=== PATIENT | female | born 1950 | race Caucasian/White ===

== ENCOUNTER 2017-11-05 13:52 | Outpatient (REF) | payer MEDICARE, OTHER, SELFPAY ==
[2017-11-05 18:35] LABS: Bilirubin Negative (Negative); Blood Trace-intact (Negative); Clarity Sl Cloudy; Glucose Negative (Negative); Ketones Negative (Negative); Leukocyte Esterase Moderate (Negative); Nitrite Negative (Negative); Urobilinogen 0.2 EU/dL (Up TO 0.2); pH 5.5 (5-8)
[2017-11-05 18:43] LABS: Epithelial Cells Many HPF (Negative); Other Cells Moderate Renal (Negative)
[2017-11-05 18:44] LABS: Bacteria Moderate HPF (Negative); C & S Indicated? C&S Done As Ordered; Casts Negative LPF (Negative); Crystals Negative HPF (Negative); Mucus Negative (Negative)
== END 2017-11-05 13:53 ==
LOC: NCHCN 13:52
PROVIDERS: PCP Nurse Practitioner Family; Visit Provider Nurse Practitioner Family
DX: R10.2 Pelvic and perineal pain (principal); N39.0 Urinary tract infection, site not specified
CPT/HCPCS: 87077; 81003; 81015; 87086; 87186; 87480; 87510; 87660

== ENCOUNTER 2018-04-19 11:19 | Outpatient (REF) | payer MEDICARE, OTHER, SELFPAY ==
[2018-04-19 13:39] LABS: Bilirubin Negative (Negative); Blood Trace-intact (Negative); Clarity Clear; Glucose Negative (Negative); Ketones Trace mg/dL (Negative); Leukocyte Esterase Small (Negative); Nitrite Negative (Negative); Specific Gravity 1.025 (1.005-1.025); Urobilinogen 0.2 EU/dL (Up TO 0.2)
[2018-04-19 14:26] LABS: Bacteria Few HPF (Negative); C & S Indicated? No/Sq. Contamination; Casts Negative LPF (Negative); Crystals Negative HPF (Negative); Epithelial Cells Many HPF (Negative); Mucus Trace (Negative)
== END 2018-04-19 11:39 ==
LOC: NCHCN 11:19
PROVIDERS: PCP Nurse Practitioner Family; Visit Provider Nurse Practitioner Family
DX: R31.9 Hematuria, unspecified (principal)
CPT/HCPCS: 81003; 81015

== ENCOUNTER 2018-04-22 14:22 | Outpatient (REF) | payer MEDICARE, OTHER, SELFPAY ==
[2018-04-22 19:25] LABS: Bilirubin Negative (Negative); Blood Negative (Negative); Clarity Clear; Glucose Negative (Negative); Ketones Trace mg/dL (Negative); Leukocyte Esterase Trace (Negative); Nitrite Negative (Negative); Urobilinogen 0.2 EU/dL (Up TO 0.2)
[2018-04-22 20:11] LABS: Epithelial Cells Many HPF (Negative); RBC 0-2 (0-2)
[2018-04-22 20:12] LABS: Bacteria Rare HPF (Negative); C & S Indicated? No/Sq. Contamination; Casts Negative LPF (Negative); Crystals Negative HPF (Negative); Mucus Negative (Negative); Other Cells Rare Transitional (Negative)
== END 2018-04-22 14:42 ==
LOC: NCHCN 14:22
PROVIDERS: PCP Nurse Practitioner Family; Visit Provider Nurse Practitioner Family
DX: R31.9 Hematuria, unspecified (principal)
CPT/HCPCS: 81003; 81015

== ENCOUNTER 2018-09-11 12:26 | Emergency (ER) | payer MEDICARE, OTHER, SELFPAY ==
[2018-09-11 12:37] VITALS: BP 168/100; PULSE 97; RESP 16; TEMP 36.5; O2SAT 99
--- NOTE | 2018-09-11 14:10 | W.ED.GENAD ---
Discharge Plan Disposition Patient Disposition: HOME Condition: Good Discharge Details Chief Complaint: RashLesion Clinical Impression: Insect bite Primary Care Provider: Niurka Camacho ED Provider: Eleazar Andrade Home Meds and New Rx's Prescriptions: Continued metformin [Glucophage] 500 MG tablet 500 mg PO BID RF: 0 hydrochlorothiazide 50 MG tablet 50 mg PO DAILY RF: 0 omeprazole [Prilosec] 40 MG capsule,delayed release(DR/EC) 40 mg PO DAILY RF: 0 simvastatin 40 MG tablet 40 mg PO DAILY RF: 0 levothyroxine [Synthroid] 100 MCG tablet 100 mcg PO DAILY RF: 0 losartan [Cozaar] 25 MG tablet 50 mg PO DAILY RF: 0 CALCIUM 1 tab PO BID RF: 0 COMBIVENT INHALER 1 - 2 puff Inhalation DAILY PRN PRNRF: 0 MULTIVITAMIN 1 tab PO QAM RF: 0 vitamin E mixed 400 UNIT capsule 400 unit PO DAILY RF: 0 clobetasol 60 GM ointment 60 gm Topical DAILY Qty: 1 RF: 3 Refresh Celluvisc 1 EACH dropperette,gel 1 drp OU PRN PRNRF: 0 Asmanex Twisthaler 220 mcg (120 doses) Aerosol Powdr Breath Activated 1 inh INHALATION BID RF: 0 Discharge Instructions Instructions: Insect Bite or Sting (ED) Additional Instructions: Please use [id number] antihistamine such as Benadryl, Claritin, or Zyrtec. Take as directed on packaging. Be mindful that Benadryl may cause some drowsiness or sedation. If you are not improving in the next 24 hours you may begin the antibiotic and follow-up with your primary care provider as needed for reassessment. For any new or significant worsening of symptoms feel free to return to the emergency department Referrals: Niurka Camacho [Primary Care Provider] - Discharge Data Discharge Date/Time-TO BE ENTERED AT DEPARTURE: 09/11/18 14:28 Medical Decision Making Patient presenting the emergency department for chief complaint of bug bite. Patient has insect bite to left neck with central area of bleeding consistent with insect bite. There is small amount of erythema surrounding this area and warmth. Patient states that this occurred immediately after the bug bite. I am more suspicious of this being a histamine reaction compared to infected bug bite given clinical history. But due to patient's concern she was told to use antihistamine medication for the next 24 hours but was given a prescription for Keflex to start in 24 hours if not improving. Patient does have penicillin allergy but states that she has used amoxicillin in the past with no other issues so I do feel that Keflex is safe to give but allergic reaction risk was discussed with patient and she was also okay receiving this medication. Return precautions discussed. HPI General Mode of arrival: ambulatory. Date/Time Provider Initiated Documentation: 09/11/18 12:59. Limitations to Documentation: no limitations. Information obtained by: patient and RN notes reviewed. History of Present Illness 68 year old F presents to the emergency department with the chief complaint of insect bite, with intensity rated at 2. Quality is described as other (itching), and is localized to the neck and left. Patient started experiencing this day(s) (1) and it has been constant. Patient notes no other symptoms.. Patient did receive the following treatments prior to arrival, none Related Data Home Medications Medication Instructions Recorded Confirmed Calcium 1 tab PO BID 06/06/12 09/11/18 Combivent Inhaler 1 - 2 puff INHALATION DAILY PRN PRN 06/06/12 09/11/18 Multivitamin 1 tab PO QAM 06/06/12 09/11/18 hydrochlorothiazide 50 mg PO DAILY tab-cap 06/06/12 09/11/18 levothyroxine [Synthroid] 100 mcg PO DAILY tab-cap 06/06/12 09/11/18 losartan [Cozaar] 50 mg PO DAILY tab-cap 06/06/12 09/11/18 metformin [Glucophage] 500 mg PO BID tab-cap 06/06/12 09/11/18 omeprazole [Prilosec] 40 mg PO DAILY tab-cap 06/06/12 09/11/18 simvastatin 40 mg PO DAILY tab-cap 06/06/12 09/11/18 vitamin E mixed 400 unit PO DAILY 11/09/13 09/11/18 clobetasol 60 gm TOPICAL DAILY #1 tube 02/26/14 09/11/18 Refresh Celluvisc 1 drp OU PRN PRN 09/09/14 09/11/18 Asmanex Twisthaler 1 inh INHALATION BID 09/11/18 09/11/18 Allergies Allergy/AdvReac Type Severity Reaction Status Date / Time lisinopril Allergy RASH Unverified 09/11/18 12:42 Penicillins Allergy RASH Unverified 09/11/18 12:42 General Stated Complaint: RashLesion ANDREW: 5 Review of Systems Constitutional Denies body ache(s), Denies fever(s) and Denies headache(s) ENT Denies headache(s) Musculoskeletal Denies myalgias, Denies arthralgias and Denies joint swelling Integumentary/Breasts Reports as per HPI, Reports erythema and Denies rash Neurologic Denies headache(s) and Denies paresthesias PFSH Medical History Asthma Cataract Diabetes mellitus, type 2 Essential hypertension Gastroesophageal reflux disease Hyperlipidemia Incontinence Malignant neoplasm of female breast Plantar fasciitis Surgical History Breast, Lumpectomy portacath Family History Sister Personal history of malignant neoplasm Alzheimer's disease Father No problems noted. Mother Alzheimer's disease Other Cirrhosis of liver Social History Smoking/Tobacco Use Status: Never Alcohol Intake: never Drug use: Never Substance use type: does not use Do you feel safe at home: Yes Do you feel safe in your relationship?: Yes Exam Const General: cooperative, comfortable and no acute distress Orientation: alert, awake and oriented x3 Neck Neck: full ROM, no meningeal signs, trachea midline and supple Resp Effort & Inspection: normal respiratory effort and able to speak in complete sentences Skin General skin exam: erythema (1.5 cm Circular area to lateral neck), no fluctuance and no induration Rashes: no rashes Neuro General: alert, awake and oriented x3 Course Vital Signs Temperature 36.5 C 09/11/18 12:37 Pulse 97 H 09/11/18 12:37 Respiratory Rate 16 09/11/18 12:37 Blood Pressure 168/100 H 09/11/18 12:37 Pulse Oximetry 99 09/11/18 12:37 Temperature 36.5 C 09/11/18 12:37 Temperature Source Temporal Artery Scan 09/11/18 12:37 Pulse 97 H 09/11/18 12:37 Respiratory Rate 16 09/11/18 12:37 Respiratory Effort Non-Labored 09/11/18 12:37 Blood Pressure 168/100 H 09/11/18 12:37 Blood Pressure Position Sitting 09/11/18 12:37 Pulse Oximetry 99 09/11/18 12:37 Oxygen Delivery Method Room Air 09/11/18 12:37 Oxygen Flow Rate 0 09/11/18 12:37 Pain Level 3 09/11/18 12:37
--- NOTE | 2018-09-11 14:13 | ED.GENADUL_ITS ---
Discharge Plan Disposition Patient Disposition: HOME Condition: Good Discharge Details Chief Complaint: RashLesion Clinical Impression: Insect bite Primary Care Provider: Niurka Camacho ED Provider: Eleazar Andrade Home Meds and New Rx's Prescriptions: Continued metformin [Glucophage] 500 MG tablet 500 mg PO BID RF: 0 hydrochlorothiazide 50 MG tablet 50 mg PO DAILY RF: 0 omeprazole [Prilosec] 40 MG capsule,delayed release(DR/EC) 40 mg PO DAILY RF: 0 simvastatin 40 MG tablet 40 mg PO DAILY RF: 0 levothyroxine [Synthroid] 100 MCG tablet 100 mcg PO DAILY RF: 0 losartan [Cozaar] 25 MG tablet 50 mg PO DAILY RF: 0 CALCIUM 1 tab PO BID RF: 0 COMBIVENT INHALER 1 - 2 puff Inhalation DAILY PRN PRNRF: 0 MULTIVITAMIN 1 tab PO QAM RF: 0 vitamin E mixed 400 UNIT capsule 400 unit PO DAILY RF: 0 clobetasol 60 GM ointment 60 gm Topical DAILY Qty: 1 RF: 3 Refresh Celluvisc 1 EACH dropperette,gel 1 drp OU PRN PRNRF: 0 Asmanex Twisthaler 220 mcg (120 doses) Aerosol Powdr Breath Activated 1 inh INHALATION BID RF: 0 Discharge Instructions Instructions: Insect Bite or Sting (ED) Additional Instructions: Please use [id number] antihistamine such as Benadryl, Claritin, or Zyrtec. Take as directed on packaging. Be mindful that Benadryl may cause some drowsiness or sedation. If you are not improving in the next 24 hours you may begin the antibiotic and follow-up with your primary care provider as needed for reassessment. For any new or significant worsening of symptoms feel free to return to the emergency department Referrals: Niurka Camacho [Primary Care Provider] - Discharge Data Discharge Date/Time-TO BE ENTERED AT DEPARTURE: 09/11/18 14:28 Medical Decision Making Patient presenting the emergency department for chief complaint of bug bite. Patient has insect bite to left neck with central area of bleeding consistent with insect bite. There is small amount of erythema surrounding this area and warmth. Patient states that this occurred immediately after the bug bite. I am more suspicious of this being a histamine reaction compared to infected bug bite given clinical history. But due to patient's concern she was told to use antihistamine medication for the next 24 hours but was given a prescription for Keflex to start in 24 hours if not improving. Patient does have penicillin allergy but states that she has used amoxicillin in the past with no other issu es so I do feel that Keflex is safe to give but allergic reaction risk was discussed with patient and she was also okay receiving this medication. Return precautions discussed. HPI General Mode of arrival: ambulatory . Date/Time Provider Initiated Documentation: 09/11/18 12:59 . Limitations to Documentation: no limitations . Information obtained by: patient and RN notes reviewed . History of Present Illness 68 year old F presents to the emergency department with the chief complaint of insect bite, with intensity rated at 2. Quality is described as other (itching), and is localized to the neck and left. Patient started experiencing this day(s) (1) and it has been constant. Patient notes no other symptoms.. Patient did receive the following treatments prior to ar [facility], none Related Data Home Medications Medication Instructions Recorded Confirmed Calcium 1 tab PO BID 06/06/12 09/11/18 Combivent Inhaler 1 - 2 puff INHALATION DAILY PRN PRN 06/06/12 09/11/18 Multivitamin 1 tab PO QAM 06/06/12 09/11/18 hydrochlorothiazide 50 mg PO DAILY tab-cap 06/06/12 09/11/18 levothyroxine [Synthroid] 100 mcg PO DAILY tab-cap 06/06/12 09/11/18 losartan [Cozaar] 50 mg PO DAILY tab-cap 06/06/12 09/11/18 metformin [Glucophage] 500 mg PO BID tab-cap 06/06/12 09/11/18 omeprazole [Prilosec] 40 mg PO DAILY tab-cap 06/06/12 09/11/18 simvastatin 40 mg PO DAILY tab-cap 06/06/12 09/11/18 vitamin E mixed 400 unit PO DAILY 11/09/13 09/11/18 clobetasol 60 gm TOPICAL DAILY #1 tube 02/26/14 09/11/18 Refresh Celluvisc 1 drp OU PRN PRN 09/09/14 09/11/18 Asmanex Twisthaler 1 inh INHALATION BID 09/11/18 09/11/18 Allergies Allergy/AdvReac Type Severity Reaction Status Date / Time lisinopril Allergy RASH Unverified 09/11/18 12:42 Penicillins Allergy RASH Unverified 09/11/18 12:42 General Stated Complaint: RashLesion ANDREW: 5 Review of Systems Constitutional Denies body ache(s), Denies fever(s) and Denies headache(s) ENT Denies headache(s) Musculoskeletal Denies myalgias, Denies arthralgias and Denies joint swelling Integumentary/Breasts Reports as per HPI, Reports erythema and Denies rash Neurologic Denies headache(s) and Denies paresthesias PFSH Medical History Asthma Cataract Diabetes mellitus, type 2 Essential hypertension Gastroesophageal reflux disease Hyperlipidemia Incontinence Malignant neoplasm of female breast Plantar fasciitis Surgical History Breast, Lumpectomy portacath Family History Sister Personal history of malignant neoplasm Alzheimer's disease Father No problems noted. Mother Alzheimer's disease Other Cirrhosis of liver Social History Smoking/Tobacco Use Status: Never Alcohol Intake: never Drug use: Never Substance use type: does not use Do you feel safe at home: Yes Do you feel safe in your relationship?: Yes Exam Const General: cooperative, comfortable and no acute distress Orientation: alert, awake and oriented x3 Neck Neck: full ROM, no meningeal signs, trachea midline and supple Resp Effort & Inspection: normal respiratory effort and able to speak in complete sentences Skin General skin exam: erythema (1.5 cm Circular area to lateral neck), no fluctuance and no induration Rashes: no rashes Neuro General: alert, awake and oriented x3 Course Vital Signs Temperature 36.5 C 09/11/18 12:37 Pulse 97 H 09/11/18 12:37 Respiratory Rate 16 09/11/18 12:37 Blood Pressure 168/100 H 09/11/18 12:37 Pulse Oximetry 99 09/11/18 12:37 Temperature 36.5 C 09/11/18 12:37 Temperature Source Temporal Artery Scan 09/11/18 12:37 Pulse 97 H 09/11/18 12:37 Respiratory Rate 16 09/11/18 12:37 Respiratory Effort Non-Labored 09/11/18 12:37 Blood Pressure 168/100 H 09/11/18 12:37 Blood Pressure Position Sitting 09/11/18 12:37 Pulse Oximetry 99 09/11/18 12:37 Oxygen Delivery Method Room Air 09/11/18 12:37 Oxygen Flow Rate 0 09/11/18 12:37 Pain Level 3 09/11/18 12:37
== END 2018-09-11 14:28 | disposition home or self-care (01) ==
PROVIDERS: Emergency Provider Nurse Practitioner Family; PCP Nurse Practitioner Family
DX: S10.86XA Insect bite of other specified part of neck, initial encounter (principal); W57.XXXA Bitten or stung by nonvenomous insect and other nonvenomous arthropods, initial encounter
CPT/HCPCS: 99282

== ENCOUNTER 2019-01-24 18:13 | Emergency (ER) | payer MEDICARE, OTHER, SELFPAY ==
--- NOTE | 2019-01-24 18:38 | W.ED.GENAD ---
Discharge Plan Disposition Patient Disposition: HOME Condition: Improving Discharge Details Chief Complaint: Cellulitis Clinical Impression: Abscess of groin, Cellulitis Primary Care Provider: Niurka Camacho ED Provider: Kami Wagner Home Meds and New Rx's Prescriptions: New cephalexin [Keflex] 500 mg capsule 500 mg PO BID Qty: 10 RF: 0 Continued metformin [Glucophage] 500 MG tablet 500 mg PO BID RF: 0 hydrochlorothiazide 50 MG tablet 50 mg PO DAILY RF: 0 omeprazole [Prilosec] 40 MG capsule,delayed release(DR/EC) 40 mg PO DAILY RF: 0 simvastatin 40 MG tablet 40 mg PO DAILY RF: 0 levothyroxine [Synthroid] 100 MCG tablet 100 mcg PO DAILY RF: 0 losartan [Cozaar] 25 MG tablet 50 mg PO DAILY RF: 0 CALCIUM 1 tab PO BID RF: 0 COMBIVENT INHALER 1 - 2 puff Inhalation DAILY PRN PRNRF: 0 MULTIVITAMIN 1 tab PO QAM RF: 0 vitamin E mixed 400 UNIT capsule 400 unit PO DAILY RF: 0 clobetasol 60 GM ointment 60 gm Topical DAILY Qty: 1 RF: 3 Refresh Celluvisc 1 EACH dropperette,gel 1 drp OU PRN PRNRF: 0 Asmanex Twisthaler 220 mcg (120 doses) Aerosol Powdr Breath Activated 1 inh INHALATION BID RF: 0 Discharge Instructions Instructions: Cephalexin (By mouth), Cellulitis (ED), Abscess (ED) Additional Instructions: Continue with the care you have been doing, you have been doing a great job and your abscess appears to be spontaneously draining with good results. You do have surroudning infection in your skin. First dose of Keflex was given here, sent home with another for tomorrow morning. Please continue with your soaks and warm compresses, otherwise, try to keep the area dry. If you develop allergy to medication such as rash, wheezing, difficulty breathing, stop the medication and seek care. If you note the area to be increased in size, have increased pain, fevers/chills, please seek care urgently once again. Please follow up with primary care for reevaluation at the end of hte week. Medical Decision Making Patient is a 69 year old female with c/c of erythema, drainage and discomfort to the right side of her groin. States that 3 days ago it was very swollen and felt like a rock. Since then, area has been draining, noted small amount of blood. Has been applying warm compresses, doing soaks and feels much improved. States this is a problem area previously secondary to body habitus. Denies any fevers or chills. There is no longer draining. Feels systemically well. [facility] Area of swelling is consistent with a draining abscess, the area is not actively draining, no fluctuance. She has surrounding erythema. No pain with palpation. Do not feel that patient is requiring drainage at this point as it appears to have spontaneously drained. However, with the surrounding erythema, feel that abx are appropriate. Patient has allergy to penicillin, describes mild rash, believes she has had Keflex historically. Encourage hydration. Advised that she monitor her glucose closely. She will contact her primary care tomorrow to schedule appointment at the end the week for reevaluation and return precautions. All questions and concerns were addressed she is in agreement this plan. Patient was given first dose of Keflex here and sent home with a second given the time of evening. HPI General Mode of arrival: ambulatory. Date/Time Provider Initiated Documentation: 01/24/19 18:37. Limitations to Documentation: no limitations. Information obtained by: patient and RN notes reviewed. HPI Narrative: Patient is a pleasant 69-year-old female with history of asthma, diabetes, hypertension, GERD, hyperlipidemia, incontinence presenting today with chief complaint of rash to the right side of her groin. Reports is been there for the past 3 days. States it is overall improving and pain has decreased. Is currently reporting pain to 2 out of 10. Denies any fevers or chills. No known trauma to this area. Denies any change in her urinary habits, patient reports that she is incontinent at baseline. Has not had a rash like this historically but has had no recent infections to this area in the past. States that she is very cognizant of keeping this area clean and dry. Denies any vaginal discharge. States that she has some yellow-brown discharge that began yesterday. States that since that, rockhard area has dissolved. States the pain did improve after this. Denies any fevers or chills. No systemic symptoms of illness. Related Data Home Medications Medication Instructions Recorded Confirmed Calcium 1 tab PO BID 06/06/12 01/24/19 Combivent Inhaler 1 - 2 puff INHALATION DAILY PRN PRN 06/06/12 01/24/19 Multivitamin 1 tab PO QAM 06/06/12 01/24/19 hydrochlorothiazide 50 mg PO DAILY tab-cap 06/06/12 01/24/19 levothyroxine [Synthroid] 100 mcg PO DAILY tab-cap 06/06/12 01/24/19 losartan [Cozaar] 50 mg PO DAILY tab-cap 06/06/12 01/24/19 metformin [Glucophage] 500 mg PO BID tab-cap 06/06/12 01/24/19 omeprazole [Prilosec] 40 mg PO DAILY tab-cap 06/06/12 01/24/19 simvastatin 40 mg PO DAILY tab-cap 06/06/12 01/24/19 vitamin E mixed 400 unit PO DAILY 11/09/13 01/24/19 clobetasol 60 gm TOPICAL DAILY #1 tube 02/26/14 01/24/19 Refresh Celluvisc 1 drp OU PRN PRN 09/09/14 01/24/19 Asmanex Twisthaler 1 inh INHALATION BID 09/11/18 01/24/19 cephalexin [Keflex] 500 mg PO BID #10 cap 01/24/19 Previous Rx's Medication Instructions Recorded cephalexin [Keflex] 500 mg PO BID #10 cap 01/24/19 Allergies Allergy/AdvReac Type Severity Reaction Status Date / Time lisinopril Allergy RASH Unverified 01/24/19 19:26 Penicillins Allergy RASH Unverified 01/24/19 19:26 General ANDREW: 5 Review of Systems Constitutional Constitutional: Reports as per HPI, Denies chills and Denies fever(s) Gastrointestinal Gastrointestinal: Reports as per HPI Genitourinary Genitourinary: Reports as per HPI Musculoskeletal Musculoskeletal: Reports as per HPI Integumentary/Breasts Skin/Breast: Reports as per HPI Neurologic Neurologic: Reports as per HPI, Denies sensory deficit and Denies paresthesias [facility] Medical History Asthma Cataract Diabetes mellitus, type 2 Essential hypertension Gastroesophageal reflux disease Hyperlipidemia Incontinence mixed Malignant neoplasm of female breast Plantar fasciitis Surgical History Breast, Lumpectomy R breast portacath insertion and removal for chemo Social History Smoking/Tobacco Use Status: Former Tobacco Use Alcohol Intake: current Alcohol Intake frequency: holidays/special occasions only Alcohol type: beer Drug use: Never Substance use type: does not use Do you feel safe at home: Yes Do you feel safe in your relationship?: Yes Exam Const General: cooperative, healthy appearing, comfortable, no acute distress and well developed Nutritional Appearance: well nourished and overweight Orientation: alert and awake Resp Effort & Inspection: normal respiratory effort, able to speak in complete sentences and no respiratory distress Cardio Rate: regular rate Rhythm: regular rhythm Female genitals images: 1. Small area of opening. This appears to be an open area likely from an abscess is been draining. No area of fluctuance to suggest persistent fluid retention. 2. Area of erythema. No induration or fluctuance. No pain on palpation. Skin General skin exam: erythema (Please see exam) Neuro General: alert and awake Cognition: normal cognition Speech: speech normal Gait: normal gait Sensory Exam: no sensory deficits noted Psych Appearance: grossly normal and well kempt Mental Status: mental status grossly normal Speech and Movement: speech and movement normal
[2019-01-24 19:22] VITALS: BP 173/90; PULSE 95; RESP 17; TEMP 36.7; O2SAT 95
[2019-01-24] MEDS: Cephalexin 500 MG CAP PO (19:29)
[2019-01-24] MEDS: Cephalexin 500 MG CAP (19:30)
== END 2019-01-24 19:30 | disposition home or self-care (01) ==
PROVIDERS: Emergency Provider Physician Assistant; PCP Nurse Practitioner Family
DX: L02.214 Cutaneous abscess of groin (principal); L03.314 Cellulitis of groin; I10 Essential (primary) hypertension; E11.9 Type 2 diabetes mellitus without complications; Z79.84 Long term (current) use of oral hypoglycemic drugs
CPT/HCPCS: 99283

== ENCOUNTER 2019-11-10 08:30 | Outpatient (CLI) | payer MEDICARE, OTHER, SELFPAY ==
[2019-11-11 14:40] LABS: COVID-19 RT-PCR Result NEGATIVE (Negative)
== END 2019-11-10 08:50 ==
PROVIDERS: PCP Nurse Practitioner Family; Visit Provider Surgery
DX: Z11.59 Encounter for screening for other viral diseases (principal); Z01.818 Encounter for other preprocedural examination
CPT/HCPCS: U0003

== ENCOUNTER 2019-11-13 10:59 | Day surgery (SDC) | payer OTHER, SELFPAY ==
--- NOTE | 2019-11-13 06:47 | W.COLOREPORT ---
Date of service: 11/13/19 Time of Service: 12:42 Colonoscopy Report Date of procedure: 11/13/19 Pre-op diagnosis general: Hx of polyps Post-op diagnosis procedure note: other (Polyps, diverticulosis) Procedure: Incomplete Colonoscopy Surgeon: Olivia Jimenez Anesthesia proc note operative: other (General/ ASA 3/Akash Rivera CRNA) Estimated blood loss (mL): 4 Pathology: other (Rectal polyp x2, sigmoid polyp) Complications: None Disposition: same day Indications: 69-year-old female with past medical history of sleep apnea, asthma and GERD who is here today for. She does have a history of adenomatous polyps. Her last colonoscopy was in [id number] at the [place]. Colonoscopy prep and procedure were reviewed with her as well as COVID testing. Prep: Miralax/Dulcolax Procedure Start Time: 12:42 Procedure End Time: 13:17 Retraction Time: 10 minutes Findings: 3 small polyps Unable to go past the Hepatic flexure secondary to a tortuous colon and her body habitus. Patients position was changed to prone and abdominal pressure was applied but I could still not get the scope to go past the hepatic flexure. Procedure Description: After informed consent was obtained the patient was taken to the procedure room and placed in a left decubitous position. Monitors were applied and a time out was done. The patients name, date of , procedure, allergies to medications and metal in their body was reviewed. The patient was then sedated. Once sedated and comfortable a rectal exam was done. External exam was normal. Internal exam revealed a normal sphincter tone and no palpable masses. The scope was then introduced and retro-flexed. No internal hemorrhoids were identified. The scope was then advanced to the hepatic flexure with difficulty. The colon was tortuous and due to the [id number] body habitues we could not feel the scope. Abdominal pressure was applied and the patient was placed in a prone position. Even with these maneuvers the scope could not get past the Hepatic flexure. After 20 minutes of trying the scope was slowly retracted. The prep was adequate. The scope was then slowly retracted over 10 minutes back into the rectum. Polyps were removed at with cold forceps in the sigmoid colon and rectum. The scope was removed and the patient was woken up and taken back to Same day surgery in stable condition. The patient tolerated the procedure well and there were no immediate complications. Follow up: [facility] with [facility] Examination Grader
--- NOTE | 2019-11-13 06:48 | PDOC.DSDIS_ITS ---
Discharge Plan Disposition Patient Disposition: HOME Condition: Good Discharge Details Reason For Visit: Colonoscopy Attending Provider: Olivia Jimenez Primary Care Provider: Niurka Camacho Home Meds and New Rx's Prescriptions: Continued metformin [Glucophage] 500 MG tablet 500 mg PO BID RF: 0 simvastatin 40 MG tablet 40 mg PO DAILY RF: 0 levothyroxine [Synthroid] 100 MCG tablet 100 mcg PO DAILY RF: 0 losartan [Cozaar] 25 MG tablet 50 mg PO DAILY RF: 0 CALCIUM 1 tab PO BID RF: 0 COMBIVENT INHALER 1 - 2 puff Inhalation DAILY PRN PRNRF: 0 MULTIVITAMIN 1 tab PO QAM RF: 0 vitamin E mixed 400 UNIT capsule 400 unit PO DAILY RF: 0 clobetasol 60 GM ointment 60 gm Topical DAILY Qty: 1 RF: 3 omeprazole [Prilosec] 40 mg capsule,delayed release(DR/EC) 20 mg PO DAILY RF: 0 hydrochlorothiazide 50 mg tablet 25 mg PO DAILY RF: 0 omega-3 fatty acids [Fish Oil Concentrate] 1,000 mg capsule 1,000 mg PO DAILY RF: 0 acetaminophen 325 mg capsule 325 mg PO ONCE PRNRF: 0 ibuprofen 400 mg tablet 400 mg PO TID PRNRF: 0 triamcinolone acetonide 0.025 % cream 1 applic TP BID RF: 0 Refresh Celluvisc 1 EACH dropperette,gel 1 drp OU PRN PRNRF: 0 Asmanex Twisthaler 220 mcg (120 doses) Aerosol Powdr Breath Activated 1 inh INHALATION BID RF: 0 Discontinued bisacodyl [Dulcolax (bisacodyl)] 5 mg tablet,delayed release (DR/EC) 5 mg PO ONCE Qty: 4 RF: 0 polyethylene glycol 3350 17 gram powder in packet 255 g PO DAILY Qty: 15 RF: 0 Discharge Instructions Additional Instructions: Findings: 3 small polyps Follow up: I was unable to get the scope all the way to the cecum. [facility] 6 [facility] with a director of mobile marketing Please call if you develop: fevers >101.5 Nausea or Vomiting Abdominal pain that is not transient DAY SURGERY UNIT POST ENDOSCOPY INSTRUCTIONS 1. Because there will be medication in your system for the next 24 hours, you may feel a little sleepy. Your coordination will be affected. Therefore: a. Do not drive or operate dangerous equipment for 24 hours. b. Do not drink alcohol beverages for 24 hours (not even beer). c. Plan to go home and rest for the day. 2. Generally there are no restrictions on your activity after a day or so has gone by, but you may feel a bit fatigued for a few days. 3 After you arrive home you may have a light meal and return to a normal diet as you can tolerate it without feeling sick to your stomach. 4. After surgery, you may feel pain or discomfort. This should be only transient, but if it persists please contact your doctor. 5. If there are any questions regarding the findings of your procedure, please feel free to contact your doctor. 6. If you are unable to contact your doctor with a problem, contact the hospital at [phone]. 7. Continue all your regular medications unless directed otherwise. I understand the above instructions and have no questions. Signature of Patient or Responsible Adult Escort Date/Time Name of Responsible Adult Escort Signature of Nurse Date/Time Activity:: Activity as Tolerated Diet:: As Tolerated Discharge Orders Discharge Orders: Discharge Order (Routine); Ordered 11/13/19 Ordered By: Olivia Jimenez
[2019-11-13 11:15] VITALS: BP 168/90; PULSE 88; RESP 18; TEMP 36.6; O2SAT 96
[2019-11-13] MEDS: Lactated Ringers 1,000 ML 80 ML IV (12:06)
--- NOTE | 2019-11-13 12:44 | BOWEL_PTH ---
PATIENT: Eevlia Tarango LOC: [facility] U#:[id number] AGE/SX: 69/F ROOM: RE11/13/[address]: Olivia Jimenez MD : [id number] BED: DIS: 11/13/2019 SPEC #: [id number] RECD: 11/13/19 18:25 STATUS: JAMAL REQ #: [id number] MARIN: 11/13/19 12:[address]: Olivia Jimenez DEPT: Surgical Specimen RECD BY: Yulia Emery ENTERED: 11/13/19 18:26 SP TYPE: Bowel OTHR DR: Niurka Camacho Tissues: 1 - BIOPSY BOWEL 2 - BIOPSY BOWEL Procedures: GROSS AND MICRO LEVEL 4 Comments: [id number]
[2019-11-13 13:47] VITALS: BP 116/65; PULSE 78; RESP 16; TEMP 36.4; O2SAT 94
== END 2019-11-13 14:15 | disposition home or self-care (01) ==
PROVIDERS: PCP Nurse Practitioner Family; Visit Provider Surgery
PROC: 0DJD8ZZ Inspection of Lower Intestinal Tract, Via Natural or Artificial Opening Endoscopic (ICD-10-PCS; CPT 45378; principal; 2019-11-13 11:30)
DX: Z12.11 Encounter for screening for malignant neoplasm of colon (principal); Z86.010 Personal history of colon polyps; K62.1 Rectal polyp; K63.5 Polyp of colon; K57.30 Diverticulosis of large intestine without perforation or abscess without bleeding; Q43.8 Other specified congenital malformations of intestine; Z53.8 Procedure and treatment not carried out for other reasons
CPT/HCPCS: 45380; 88305; J2001

== ENCOUNTER 2020-04-20 14:00 | Emergency (ER) | payer MEDICARE, OTHER, SELFPAY ==
[2020-04-20 14:06] VITALS: BP 185/105; PULSE 117; TEMP 36.6; O2SAT 98
--- NOTE | 2020-04-20 14:27 | ED.GENADUL_ITS ---
Discharge Plan Disposition Patient Disposition: HOME Condition: Stable Discharge Details Clinical Impression: Rash of face Primary Care Provider: Niurka Camacho ED Provider: Flaca Gaona Home Meds and New Rx's Prescriptions: No Action metformin [Glucophage] 500 MG tablet 500 mg PO BID RF: 0 simvastatin 40 MG tablet 40 mg PO DAILY RF: 0 levothyroxine [Synthroid] 100 MCG tablet 100 mcg PO DAILY RF: 0 losartan [Cozaar] 25 MG tablet 50 mg PO DAILY RF: 0 CALCIUM 1 tab PO BID RF: 0 COMBIVENT INHALER 1 - 2 puff Inhalation DAILY PRN PRNRF: 0 MULTIVITAMIN 1 tab PO QAM RF: 0 vitamin E mixed 400 UNIT capsule 400 unit PO DAILY RF: 0 hydrochlorothiazide 50 mg tablet 25 mg PO DAILY RF: 0 omega-3 fatty acids [Fish Oil Concentrate] 1,000 mg capsule 1,000 mg PO DAILY RF: 0 acetaminophen 325 mg capsule 325 mg PO ONCE PRNRF: 0 ibuprofen 400 mg tablet 400 mg PO TID PRNRF: 0 triamcinolone acetonide 0.025 % cream 0.1 applic TP BID RF: 0 Refresh Celluvisc 1 EACH dropperette,gel 1 drp OU PRN PRNRF: 0 Asmanex Twisthaler 220 mcg (120 doses) Aerosol Powdr Breath Activated 1 inh INHALATION BID RF: 0 Discharge Instructions Instructions: Impetigo (ED) Additional Instructions: Using mupirocin topical ointment 3 times a day for 5 to 7 days. You should notice an improvement after 3 to 5 days. Please be seen if any spreading or worsening after 2 to 3 days of antibiotic ointment. Follow up with primary care provider in 3-5 days. Return to ED sooner if any worsening or concerns. Increase oral fluids. Referrals: Niurka Camacho [Primary Care Provider] - Medical Decision Making 70-year-old female presents to the ER with a chronic rash type lesion to the her left cheek. She was seen by dermatology 4 weeks ago when this initially presented. She has been prescribed various medications including fluconazole and triamcinolone cream which has provided little to no relief. She reports tenderness with smiling and palpation. She states that this morning she was washing it and noted mild bleeding. No fever, no other rashes noted. She does have a past medical history of stage IV breast cancer, she has had basal cell carcinoma removed to her forehead, cataracts, type 2 diabetes, hypertension, GERD, asthma. At this time we will treat as bacterial infection with some mupirocin ointment. Differential diagnosis includes but not limited to impetigo, shingles, atopic dermatitis, fungal infection, HPI General Mode of arrival: ambulatory . Date/Time Provider Initiated Documentation: 04/20/20 14:01 . Limitations to Documentation: no limitations . Information obtained by: patient . HPI Narrative: 70-year-old female presents to the ER with a chronic rash type lesion to the her left cheek. She was seen by dermatology 4 weeks ago when this initially presented. She has been prescribed various medications including fluconazole and triamcinolone cream which has provided little to no relief. She reports tenderness with smiling and palpation. She states that this morning she was washing it and noted mild bleeding. No fever, no other rashes noted. She does have a past medical history of stage IV breast cancer, she has had basal cell carcinoma removed to her forehead, cataracts, type 2 diabetes, hypertension, GERD, asthma. Related Data Home Medications Medication Instructions Recorded Confirmed Calcium 1 tab PO BID 06/06/12 04/20/20 Combivent Inhaler 1 - 2 puff INHALATION DAILY PRN PRN 06/06/12 04/20/20 Multivitamin 1 tab PO QAM 06/06/12 04/20/20 levothyroxine [Synthroid] 100 mcg PO DAILY tab-cap 06/06/12 04/20/20 losartan [Cozaar] 50 mg PO DAILY tab-cap 06/06/12 04/20/20 metformin [Glucophage] 500 mg PO BID tab-cap 06/06/12 04/20/20 simvastatin 40 mg PO DAILY tab-cap 06/06/12 04/20/20 vitamin E mixed 400 unit PO DAILY 11/09/13 04/20/20 Refresh Celluvisc 1 drp OU PRN PRN 09/09/14 04/20/20 Asmanex Twisthaler 1 inh INHALATION BID 09/11/18 04/20/20 acetaminophen 325 mg capsule 325 mg PO ONCE PRN 08/24/19 04/20/20 hydrochlorothiazide 50 mg tablet 25 mg PO DAILY tab-cap 08/24/19 04/20/20 ibuprofen 400 mg tablet 400 mg PO TID PRN 08/24/19 04/20/20 omega-3 fatty acids 1,000 mg 1,000 mg PO DAILY 08/24/19 04/20/20 capsule triamcinolone acetonide 0.025 % 0.1 applic TP BID 08/24/19 04/20/20 topical cream Allergies Allergy/AdvReac Type Severity Reaction Status Date / Time JAMARCUS Inhibitors Allergy Unknown noted on Verified 04/20/20 14:15 referral note, no reaction given sulfamethoxazole Allergy Unknown Verified 04/20/20 14:15 trimethoprim [From ] Allergy Unknown on Verified 04/20/20 14:15 referral, no reaction noted lisinopril Allergy RASH Unverified 04/20/20 14:15 Penicillins Allergy RASH Unverified 04/20/20 14:15 General Stated Complaint: RashLesion ANDREW: 5 Review of Systems All systems reviewed & are unremarkable except as noted in HPI and below Integumentary/Breasts Skin/Breast: Reports rash (Left cheek lesion) and Reports sores PFSH Medical History Adenomatous polyp (~06/2015) Asthma Cataract Diabetes mellitus, type 2 Essential hypertension Gastroesophageal reflux disease Hyperlipidemia Hypothyroidism Incontinence mixed Lichen sclerosus et atrophicus Malignant neoplasm of female breast Morbid obesity due to excess calories Obstructive sleep apnea Other asthma Personal history of malignant neoplasm of breast Plantar fasciitis Surgical History Breast, Lumpectomy R breast quadrectomy H/O colonoscopy (~10/2019) incomplete colonoscopy. repeat in 1 year or schedule barium enema. portacath insertion and removal for chemo S/P colonoscopy 2015- Tubular adenoma Family History Sister Personal history of malignant neoplasm breast CA-in-situ Alzheimer's disease Father No problems noted. Mother Alzheimer's disease Other Cirrhosis of liver Social History Smoking/Tobacco Use Status: Former Tobacco Use Smoking risk assessment performed?: Yes Alcohol Intake: current Alcohol Intake frequency: holidays/special occasions o nly Alcohol type: beer Drug use: Never Substance use type: does not use Do you feel safe at home: Yes Do you feel safe in your relationship?: Yes Exam Skin Lesions: lesion noted patch left lower cheek size (2.5cm x 1 cm), borders irregular, color honey-colored, consistency, morphology raised, surface crusted and rough (cracked) and tender Course Vital Signs Vital signs: Vital Signs Temperature 36.6 C 04/20/20 14:06 Pulse 117 H 04/20/20 14:06 Blood Pressure 185/105 H 04/20/20 14:06 Pulse Oximetry 98 04/20/20 14:06 Temperature 36.6 C 04/20/20 14:06 Temperature Source Temporal Artery Scan 04/20/20 14:06 Pulse 117 H 04/20/20 14:06 Respiratory Effort Non-Labored 04/20/20 14:09 Blood Pressure 185/105 H 04/20/20 14:06 Blood Pressure Position Sitting 04/20/20 14:06 Pulse Oximetry 98 04/20/20 14:06 Oxygen Delivery Method Room Air 04/20/20 14:06 Oxygen Flow Rate 0 04/20/20 14:06 Pain Level 6 04/20/20 14:06
== END 2020-04-20 15:24 | disposition home or self-care (01) ==
LOC: ER 15:32
PROVIDERS: Emergency Provider Registered Nurse Emergency; PCP Nurse Practitioner Family
DX: R21 Rash and other nonspecific skin eruption (principal); E11.9 Type 2 diabetes mellitus without complications; Z79.84 Long term (current) use of oral hypoglycemic drugs
CPT/HCPCS: 99283

== ENCOUNTER 2020-10-08 11:39 | Emergency (ER) | payer MEDICARE, OTHER, SELFPAY ==
--- NOTE | 2020-10-08 11:43 | W.ED.GENAD ---
Discharge Plan Disposition Patient Disposition: HOME Condition: Stable Discharge Details Clinical Impression: Head injury, Shoulder pain, Leg pain, Abrasion Primary Care Provider: Niurka Camacho ED Provider: Kory Hollis Home Meds and New Rx's Prescriptions: Continued metformin [Glucophage] 500 MG tablet 500 mg PO BID RF: 0 simvastatin 40 MG tablet 40 mg PO DAILY RF: 0 levothyroxine [Synthroid] 100 MCG tablet 100 mcg PO DAILY RF: 0 losartan [Cozaar] 25 MG tablet 50 mg PO DAILY RF: 0 CALCIUM 1 tab PO BID RF: 0 COMBIVENT INHALER 1 - 2 puff Inhalation DAILY PRN PRNRF: 0 MULTIVITAMIN 1 tab PO QAM RF: 0 vitamin E mixed 400 UNIT capsule 400 unit PO DAILY RF: 0 hydrochlorothiazide 50 mg tablet 25 mg PO DAILY RF: 0 omega-3 fatty acids [Fish Oil Concentrate] 1,000 mg capsule 1,000 mg PO DAILY RF: 0 acetaminophen 325 mg capsule 325 mg PO ONCE PRNRF: 0 ibuprofen 400 mg tablet 400 mg PO TID PRNRF: 0 triamcinolone acetonide 0.025 % cream 0.1 applic TP BID RF: 0 Refresh Celluvisc 1 EACH dropperette,gel 1 drp OU PRN PRNRF: 0 Asmanex Twisthaler 220 mcg (120 doses) Aerosol Powdr Breath Activated 1 inh INHALATION BID RF: 0 Discharge Instructions Instructions: Head Injury (ED), Abrasion (ED), Shoulder Pain (ED), Leg Pain (ED) Additional Instructions: CT imaging and x-rays did not reveal any acute bony abnormality. Use your cane as tolerated. Rest, elevate, cool and/or warm compresses every 2 hours for 20 minutes. [id number] Tylenol as directed for discomfort. Please watch for new or worsening symptoms and return to the ER for any concerns. I would recommend reaching out your primary care provider later today or tomorrow to discuss your ER visit and need for outpatient reevaluation Discharge Data Discharge Date/Time-TO BE ENTERED AT DEPARTURE: 10/08/20 15:07 Medical Decision Making 70-year-old female who is not anticoagulated, presents for mechanical fall landing on her right side. She struck her head, reports mild headache but no LOC or neck pain. She reports diffuse right shoulder, chest wall, hip, knee, ankle discomfort. She reports all of the pain is moderate in nature worse with movement. She is unable to determine if any of the pain is worse in one area or not. Will update tetanus status today, both abrasions will be cleaned and dressed. Discussed options, because patient is unable to determine where her pain is most severe, will obtain x-ray of the right ankle, knee, hip and pelvis, chest, right shoulder, and CT imaging of the brain. Patient offered analgesia but declined. Right shoulder read by radiology as degenerative changes, no acute abnormality. Chest x-ray, no acute abnormality, right ankle no acute abnormality, right knee unremarkable, right hip with pelvis severe degenerative changes, no fracture. Head CT negative Discussed radiology studies with patient. She is relieved. She was able to stand, ambulate steadily using a cane which is her baseline. Patient has no additional questions or concerns and is comfortable discharge at this time. She remains neurologically intact while under my care. Medical Records Medical records reviewed: Yes I reviewed the patient's medical records. Imaging Data Radiologic Study: Attestation: I personally reviewed and interpreted this imaging study as follows: Imaging: X-Ray Radiologist's impression: EXAM: CT HEAD WO CLINICAL HISTORY: fall/pain. TECHNIQUE: Imaging Protocol: Axial computed tomography images with coronal and sagittal reformatted images were created and reviewed COMPARISON: CT HEAD WITHOUT CONTRAST from 08/04/2016 CT HEAD WITHOUT CONTRAST from 08/04/2016 CT CTA BRAIN from 08/04/2016 FINDINGS: Ventricles and Extra axial spaces: Normal in size and morphology for the patient's age. Hemorrhage: None. Cerebral parenchyma: Normal. Midline shift: None. Brainstem/Cerebellum: Normal. Calvarium: Normal. Visualized Paranasal sinuses/Mastoids: Clear. Soft Tissues: Unremarkable. IMPRESSION: No acute intracranial process. HPI General Mode of arrival: wheelchair. Date/Time Provider Initiated Documentation: 10/08/20 11:42. Limitations to Documentation: no limitations. Information obtained by: patient. HPI Narrative: This is a 70-year-old female, past medical history that includes asthma, diabetes, hypertension, GERD, hypothyroidism, history of obesity, presenting to the ER status [place] complaining of right sided pain, arm, ribs, leg, head. Patient states that she slipped on a rug falling down to her right side, did strike her head but did not lose consciousness. She states that she is typically able to ambulate using a cane. She reports pain is moderate, worse with movement. Reports pain across her entire right leg, ankle, knee, hip, right shoulder, right ribs. She denies any neck pain, visual changes, recent illness, fever, chest pain, shortness of breath, cough abdominal pain, nausea, vomiting, incontinence. Denies numbness, tingling, weakness. She sustained 2 separate abrasions to each arm. Does not believe that her tetanus status is up-to-date. Related Data Home Medications Medication Instructions Recorded Confirmed Calcium 1 tab PO BID 06/06/12 10/08/20 Combivent Inhaler 1 - 2 puff INHALATION DAILY PRN PRN 06/06/12 10/08/20 Multivitamin 1 tab PO QAM 06/06/12 10/08/20 levothyroxine [Synthroid] 100 mcg PO DAILY tab-cap 06/06/12 10/08/20 losartan [Cozaar] 50 mg PO DAILY tab-cap 06/06/12 10/08/20 metformin [Glucophage] 500 mg PO BID tab-cap 06/06/12 10/08/20 simvastatin 40 mg PO DAILY tab-cap 06/06/12 10/08/20 vitamin E mixed 400 unit PO DAILY 11/09/13 10/08/20 Refresh Celluvisc 1 drp OU PRN PRN 09/09/14 10/08/20 Asmanex Twisthaler 1 inh INHALATION BID 09/11/18 10/08/20 acetaminophen 325 mg capsule 325 mg PO ONCE PRN 08/24/19 10/08/20 hydrochlorothiazide 50 mg tablet 25 mg PO DAILY tab-cap 08/24/19 10/08/20 ibuprofen 400 mg tablet 400 mg PO TID PRN 08/24/19 10/08/20 omega-3 fatty acids 1,000 mg 1,000 mg PO DAILY 08/24/19 10/08/20 capsule triamcinolone acetonide 0.025 % 0.1 applic TP BID 08/24/19 10/08/20 topical cream Allergies Allergy/AdvReac Type Severity Reaction Status Date / Time JAMARCUS Inhibitors Allergy Unknown noted on Verified 10/08/20 11:59 referral note, no reaction given sulfamethoxazole Allergy Unknown Verified 10/08/20 11:59 trimethoprim [From Septra] Allergy Unknown on Verified 10/08/20 11:59 referral, no reaction noted lisinopril Allergy RASH Unverified 10/08/20 11:59 Penicillins Allergy RASH Unverified 10/08/20 11:59 General ANDREW: 5 Review of Systems Constitutional Constitutional: Denies fever(s), Reports headache(s) and Denies weakness Eyes Eyes: Denies change in vision ENT Ears, Nose, Mouth, and Throat: Reports headache(s) and Denies neck pain Cardiovascular Cardiovascular: Denies chest pain and Denies dyspnea Respiratory Respiratory: Denies cough and Denies dyspnea Gastrointestinal Gastrointestinal: Denies abdominal pain, Denies nausea and Denies vomiting Genitourinary Genitourinary: Denies hematuria Musculoskeletal Musculoskeletal: Denies arthralgias, Denies neck pain, Denies numbness, Reports stiffness and Denies tingling Integumentary/Breasts Skin/Breast: Denies rash Neurologic Neurologic: Reports headache(s), Denies numbness, Denies tingling and Denies weakness Hematologic/Lymphatic Hematologic/Lymphatic: Denies easy bleeding and Denies easy bruising [facility] Medical History Adenomatous polyp (~06/2015) Asthma Cataract Diabetes mellitus, type 2 Essential hypertension Gastroesophageal reflux disease Hyperlipidemia Hypothyroidism Incontinence mixed Lichen sclerosus et atrophicus Malignant neoplasm of female breast Morbid obesity due to excess calories Obstructive sleep apnea Other asthma Personal history of malignant neoplasm of breast Plantar fasciitis Surgical History Breast, Lumpectomy R breast quadrectomy H/O colonoscopy (~10/2019) incomplete colonoscopy. repeat in 1 year or schedule barium enema. portacath insertion and removal for chemo S/P colonoscopy 2016- Tubular adenoma Family History Sister Personal history of malignant neoplasm breast CA-in-situ Alzheimer's disease Father No problems noted. Mother Alzheimer's disease Other Cirrhosis of liver Social History Smoking/Tobacco Use Status: Former Tobacco Use Smoking risk assessment performed?: Yes Alcohol Intake: current Alcohol Intake frequency: holidays/special occasions only Alcohol type: beer Drug use: Never Substance use type: does not use Do you feel safe at home: Yes Do you feel safe in your relationship?: Yes Exam Const General: cooperative, healthy appearing, comfortable and no acute distress Orientation: alert, awake and oriented x3 [facility] Head: normal to inspection, no palpable skull fracture, normocephalic and atraumatic Face and sinus: normal facial exam Mouth: moist mucous membranes Eyes General: appearance normal, both eyes and all related structures Conjunctivae: conjunctivae normal Neck Neck: normal visual inspection, full ROM, trachea midline, supple and nontender Chest Chest: normal inspection of the chest Other: Diffuse mild right lateral lower chest wall-with discomfort. There is no erythema, ecchymosis, crepitus. No bony point tenderness. Resp Effort & Inspection: normal respiratory effort and able to speak in complete sentences Auscultation: clear to auscultation bilaterally Cardio Rate: regular rate Rhythm: regular rhythm GI Inspection: obesity Palpation: soft and nontender Back/Spine/Pelvis Back: no CVA tenderness and No back tenderness Skin General skin exam: no rashes or lesions noted Other: Abrasion right forearm, abrasion left elbow posterior aspect. No bony point tenderness. No active bleeding. Neuro General: patient alert, patient awake, patient oriented x3, moves all extremities and no focal motor deficits Cognition: normal cognition Speech: speech normal Gait: antalgic and gait assisted (Cane) Motor: muscle tone normal throughout Sensory Exam: no sensory deficits noted Extrem General: normal to inspection, full ROM and capillary refill normal Other: Extremities, normal inspection. Full range of motion. Normal radial pulse bilaterally, dorsalis pedal pulse bilaterally, capillary refill in all 4 extremities. Patient has full range of motion, joints feel stable, no laxity. She has diffuse discomfort over her entire right shoulder, right hip, right knee, right ankle. Psych Appearance: grossly normal Mental Status: mental status grossly normal
[2020-10-08 11:53] VITALS: BP 149/69; PULSE 103; RESP 18; TEMP 36.6; O2SAT 97
--- NOTE | 2020-10-08 12:00 | DI.CT_ITS ---
Exam(s) CT HEAD WO EXAM: CT HEAD WO CLINICAL HISTORY: fall/pain. TECHNIQUE: Imaging Protocol: Axial computed tomography images with coronal and sagittal reformatted images were created and reviewed COMPARISON: CT HEAD WITHOUT CONTRAST from 08/04/2016 CT HEAD WITHOUT CONTRAST from 08/04/2016 CT CTA BRAIN from 08/04/2016 FINDINGS: Ventricles and Extra axial spaces: Normal in size and morphology for the patient's age. Hemorrhage: None. Cerebral parenchyma: Normal. Midline shift: None. Brainstem/Cerebellum: Normal. Calvarium: Normal. Visualized Paranasal sinuses/Mastoids: Clear. Soft Tissues: Unremarkable. IMPRESSION: No acute intracranial process. RADIATION DOSE DELIVERED: 857.6mGy.cm Total DLP DATA REPOSITORY: All CT scans at this facility are submitted to the National Radiology Data Registry (NRDR) Dose Index Registry (DIR) with the [employer] (A[employer]). RADIATION OPTIMIZATION: All CT scans at this facility use at least one of these dose optimization te chniques: automated exposure control; mA and/or kV adjustment per patient size (includes targeted exa ms where dose is matched to clinical indication); or iterative reconstruction.
--- NOTE | 2020-10-08 12:00 | DI.RAD_ITS ---
Exam(s) XR HIP RT COMPLETE AP PELVIS EXAM: XR HIP RT COMPLETE AP PELVIS INDICATION: fall/pain. COMPARISON: No exams were available for comparison TECHNIQUE: 2D digital imaging was performed. FINDINGS: No fracture or dislocation is seen. There are severe degenerative changes of the right hip. There is severe joint space narrowing and prominent periarticular spurring. Moderate to severe degenerativ e changes are also noted at the left hip. SI joints and pubic symphysis appear intact. IMPRESSION: Severe degenerative changes of the hips, right greater than left. No acute fracture. DATA REPOSITORY: RADIATION DOSE DELIVERED:
--- NOTE | 2020-10-08 12:00 | DI.RAD_ITS ---
Exam(s) XR CHEST 2V PA LATERAL EXAM: XR CHEST 2V PA LATERAL CLINICAL HISTORY: fall/pain TECHNIQUE: 2D digital imaging was performed. COMPARISON: No exams were available for comparison FINDINGS: The exam is limited by semi-upright positioning and poor inspiration. Heart appears enlarged. The a adela is mildly tortuous. No focal infiltrate or effusion is seen. There is no evidence of pulmonary edema or pneumothorax. Degenerative changes are seen in the spine. IMPRESSION: No acute abnormality. DATA REPOSITORY: RADIATION DOSE DELIVERED:
--- NOTE | 2020-10-08 12:00 | DI.RAD_ITS ---
Exam(s) XR KNEE RT 3V AP,LAT,MONICA EXAM: XR KNEE RT 3V AP,LAT,MONICA CLINICAL HISTORY: fall/pain. TECHNIQUE: 2D digital imaging was performed. COMPARISON: No exams were available for comparison FINDINGS: BONES: No acute fracture is present. No bony destructive lesion is seen. JOINTS: The knee is normally aligned. No joint effusion is seen. Minimal periarticular spurring. SOFT TISSUE: Normal. IMPRESSION: Unremarkable radiographs of the right knee. DATA REPOSITORY: RADIATION DOSE DELIVERED:
--- NOTE | 2020-10-08 12:00 | DI.RAD_ITS ---
Exam(s) XR ANKLE RT COMPLETE EXAM: XR ANKLE RT COMPLETE CLINICAL HISTORY: fall/pain. TECHNIQUE: 2D digital imaging was performed. COMPARISON: No exams were available for comparison FINDINGS: BONES: No acute fracture is present. No bony destructive lesion is seen. There is spurring at the m edial malleolus. JOINTS: The ankle mortise is normally aligned. The ankle joint space is well maintained. SOFT TISSUE: Normal. IMPRESSION: No acute abnormality. DATA REPOSITORY: RADIATION DOSE DELIVERED:
--- NOTE | 2020-10-08 13:15 | DI.RAD_ITS ---
Exam(s) XR SHOULDER RT COMPLETE 2+V EXAM: XR SHOULDER RT COMPLETE 2+V CLINICAL HISTORY: fall/pain. TECHNIQUE: 2D digital imaging was performed. COMPARISON: No exams were available for comparison FINDINGS: BONES: No acute fracture is present. No bony destructive lesion is seen. JOINTS: No dislocation present. Spurring at the AC joint and undersurface of the acromion is well as glenohumeral joint. SOFT TISSUE: Surgical clips over right lateral chest wall. IMPRESSION: Degenerative changes. No acute abnormality. DATA REPOSITORY: RADIATION DOSE DELIVERED:
[2020-10-08 15:10] VITALS: BP 149/62; PULSE 88; RESP 16; TEMP 36.6; O2SAT 97
== END 2020-10-08 15:07 | disposition home or self-care (01) ==
PROVIDERS: Emergency Provider Physician Assistant; PCP Nurse Practitioner Family
DX: S09.8XXA Other specified injuries of head, initial encounter (principal); M25.511 Pain in right shoulder; M25.551 Pain in right hip; M25.561 Pain in right knee; M25.571 Pain in right ankle and joints of right foot; R07.89 Other chest pain; S40.812A Abrasion of left upper arm, initial encounter; S40.811A Abrasion of right upper arm, initial encounter; W01.198A Fall on same level from slipping, tripping and stumbling with subsequent striking against other object, initial encounter
CPT/HCPCS: 73562; 90471; 99284; 70450; 71046; 73030; 73502; 73610

== ENCOUNTER 2021-01-24 13:07 | Emergency (ER) | payer MEDICARE, OTHER, SELFPAY ==
[2021-01-24 13:13] VITALS: BP 155/73; PULSE 108; RESP 18; TEMP 36.7; O2SAT 98
--- NOTE | 2021-01-24 13:34 | ED.GENADUL_ITS ---
Discharge Plan Disposition Patient Disposition: HOME Condition: Good Discharge Details Clinical Impression: Epistaxis Primary Care Provider: Niurka Camacho ED Provider: Yulia Pryor Home Meds and New Rx's Prescriptions: Continued metformin [Glucophage] 500 MG tablet 500 mg PO BID RF: 0 simvastatin 40 MG tablet 40 mg PO DAILY RF: 0 levothyroxine [Synthroid] 100 MCG tablet 100 mcg PO DAILY RF: 0 losartan [Cozaar] 25 MG tablet 50 mg PO DAILY RF: 0 CALCIUM 1 tab PO BID RF: 0 COMBIVENT INHALER 1 - 2 puff Inhalation DAILY PRN PRNRF: 0 MULTIVITAMIN 1 tab PO QAM RF: 0 vitamin E mixed 400 UNIT capsule 400 unit PO DAILY RF: 0 hydrochlorothiazide 50 mg tablet 25 mg PO DAILY RF: 0 omega-3 fatty acids [Fish Oil Concentrate] 1,000 mg capsule 1,000 mg PO DAILY RF: 0 acetaminophen 325 mg capsule 325 mg PO ONCE PRNRF: 0 ibuprofen 400 mg tablet 400 mg PO TID PRNRF: 0 triamcinolone acetonide 0.025 % cream 0.1 applic TP BID RF: 0 Refresh Celluvisc 1 EACH dropperette,gel 1 drp OU PRN PRNRF: 0 Asmanex Twisthaler 220 mcg (120 doses) Aerosol Powdr Breath Activated 1 inh INHALATION BID RF: 0 Discharge Instructions Instructions: Nosebleed (ED) Additional Instructions: You may use Afrin nasal spray and face your nose clamp if bleeding restarts, leave this for 20 minutes, if you have cessation of bleeding, you do not need to come to the emergency room Should you have persistent bleeding, I recommend reassessment Coat your nostril twice daily with Vaseline Humidifier Use caution with your CPAP device You have absorbable hemostat and removed, this will resolve on its own, do not attempt to remove it or place anything up your nose Referrals: Niurka Camacho [Primary Care Provider] - Discharge Data Discharge Date/Time-TO BE ENTERED AT DEPARTURE: 01/24/21 15:38 Medical Decision Making Patient appears well, Surgicel applied to area on the septum of left nare, no active bleeding at time of reassessment Has only bled for several minutes, no indication for CBC Not anticoagulated, no indication for INR Ambulatory steady gait, orthostatic negative, repeat heart rate 93 Return precautions discussed and patient expressed understanding, discharged home in stable condition with stable vitals, suspect this was secondary to her CPAP use, Vaseline twice daily recommended Medical Records Medical records reviewed: Yes I reviewed the patient's medical records. HPI General Mode of arrival: ambulatory . Date/Time Provider Initiated Documentation: 01/24/21 13:20 . Limitations to Documentation: no limitations . Information obtained by: patient . HPI Narrative: Patient is here with epistaxis. She states that she had a similar episode approximately a week ago. She does use CPAP with nasal pillows. She states that the bleeding started at approximately 1 and with pressure that was alleviated in 5 minutes. She denies any weakness or dizziness. She denies any history of coagulopathy. She is otherwise reportedly healthy. She only bled for several minutes today. She has currently have a bleeding control. Related Data Home Medications Medication Instructions Recorded Confirmed Calcium 1 tab PO BID 06/06/12 01/24/21 Combivent Inhaler 1 - 2 puff INHALATION DAILY PRN PRN 06/06/12 01/24/21 Multivitamin 1 tab PO QAM 06/06/12 01/24/21 levothyroxine [Synthroid] 100 mcg PO DAILY tab-cap 06/06/12 01/24/21 losartan [Cozaar] 50 mg PO DAILY tab-cap 06/06/12 01/24/21 metformin [Glucophage] 500 mg PO BID tab-cap 06/06/12 01/24/21 simvastatin 40 mg PO DAILY tab-cap 06/06/12 01/24/21 vitamin E mixed 400 unit PO DAILY 11/09/13 01/24/21 Refresh Celluvisc 1 drp OU PRN PRN 09/09/14 01/24/21 Asmanex Twisthaler 1 inh INHALATION BID 09/11/18 01/24/21 acetaminophen 325 mg capsule 325 mg PO ONCE PRN 08/24/19 01/24/21 hydrochlorothiazide 50 mg tablet 25 mg PO DAILY tab-cap 08/24/19 01/24/21 ibuprofen 400 mg tablet 400 mg PO TID PRN 08/24/19 01/24/21 omega-3 fatty acids 1,000 mg 1,000 mg PO DAILY 08/24/19 01/24/21 capsule triamcinolone acetonide 0.025 % 0.1 applic TP BID 08/24/19 01/24/21 topical cream Allergies Allergy/AdvReac Type Severity Reaction Status Date / Time JAMARCUS Inhibitors Allergy Unknown noted on Verified 01/24/21 13:17 referral note, no reaction given sulfamethoxazole Allergy Unknown Verified 01/24/21 13:17 trimethoprim [From Septra] Allergy Unknown on Verified 01/24/21 13:17 referral, no reaction noted lisinopril Allergy RASH Unverified 01/24/21 13:17 Penicillins Allergy RASH Unverified 01/24/21 13:17 General Stated Complaint: Epistaxis ANDREW: 4 Review of Systems All systems reviewed & are unremarkable except as noted in HPI and below PFSH Medical History Adenomatous polyp (~06/2015) Asthma Cataract Diabetes mellitus, type 2 Essential hypertension Gastroesophageal reflux disease Hyperlipidemia Hypothyroidism Incontinence mixed Lichen sclerosus et atrophicus Malignant neoplasm of female breast Morbid obesity due to excess calories Obstructive sleep apnea Other asthma Personal history of malignant neoplasm of breast Plantar fasciitis Surgical History Breast, Lumpectomy R breast quadrectomy H/O colonoscopy (~10/2019) incomplete colonoscopy. repeat in 1 year or schedule barium enema. portacath insertion and removal for chemo S/P colonoscopy 2015- Tubular adenoma Family History Sister Personal history of malignant neoplasm breast CA-in-situ Alzheimer's disease Father No problems noted. Mother Alzheimer's disease Other Cirrhosis of liver Social History Smoking/Tobacco Use Status: Former Tobacco Use Smoking risk assessment performed?: Yes Alcohol Intake: current Alcohol Intake frequency: holidays/special occasions only Alcohol type: beer Drug use: Never Substance use type: does not use Do you feel safe at home: Yes Do you feel safe in your relationship?: Yes Exam Const General: cooperative, comfortable and no acute distress HENMT Other: Left nare along septum with area of bleeding, scant Resp Effort & Inspection: normal respiratory effort Cardio Rate: regular rate Neuro General: patient alert and patient oriented x3 Course Vital Signs Vital signs: Vital Signs Temperature 36.7 C 01/24/21 13:13 Pulse 108 H 01/24/21 13:13 Respiratory Rate 18 01/24/21 13:13 Blood Pressure 155/73 H 01/24/21 13:13 Pulse Oximetry 98 01/24/21 13:13 Temperature 36.7 C 01/24/21 13:13 Temperature Source Temporal Artery Scan 01/24/21 13:13 Pulse 108 H 01/24/21 13:13 Respiratory Rate 18 01/24/21 13:13 Respiratory Effort Non-Labored 01/24/21 13:18 Blood Pressure 155/73 H 01/24/21 13:13 Pulse Oximetry 98 01/24/21 13:13 Oxygen Delivery Method Room Air 01/24/21 13:13 Oxygen Flow Rate 0 01/24/21 13:13 Pain Level 0 01/24/21 13:13
[2021-01-24 14:17] VITALS: BP 155/73; PULSE 108; RESP 18; TEMP 36.7; O2SAT 98
== END 2021-01-24 15:38 | disposition home or self-care (01) ==
PROVIDERS: Emergency Provider Physician Assistant; PCP Nurse Practitioner Family
DX: R04.0 Epistaxis (principal); I10 Essential (primary) hypertension
CPT/HCPCS: 99282; 99283

== ENCOUNTER 2021-01-29 20:17 | Outpatient (REF) | payer MEDICARE, OTHER, SELFPAY ==
[2021-01-29 21:35] LABS: HCT 44.1 % (36.0-46.0); HGB 13.7 g/dL (11.2-15.7)
== END 2021-01-29 20:18 | disposition home or self-care (01) ==
LOC: NCHCN 20:17
PROVIDERS: PCP Nurse Practitioner Family; Visit Provider Family Medicine
DX: R58 Hemorrhage, not elsewhere classified (principal)
CPT/HCPCS: 85014; 85018

== ENCOUNTER 2022-04-29 02:24 | Outpatient (CLI) | payer OTHER, SELFPAY ==
--- NOTE | 2022-04-29 | DI.MRI_ITS ---
Exam(s) MR LUMBAR SPINE WO/W EXAM: MR LUMBAR SPINE WO/W CLINICAL HISTORY: MO AUTH# [id number] D18.09 L4 VERTEBRAL HEMANGIOMA, BLE WEAKNESS. TECHNIQUE: Multiplanar multisequence MRI of the Lumbar Spine was performed. CONTRAST MATERIAL: IV Contrast: 20 mL of Dotarem contrast administered. COMPARISON: No exams were available for comparison FINDINGS: Bones: The last intervertebral disc space is designated the L5/S1 level for the numbering purpose of this examination. The vertebral body heights are well maintained. Alignment is satisfactory. There a re endplate degenerative signal changes present. There is hyperintense signal seen in the L4 vertebr al body on both T1 and T2 weighted images suggestive of a hemangioma. Cord: The conus tip ends at the T12 level. It is of normal size and signal intensity. T12-L1: No disc herniations or bulges are present. No central spinal canal or neural foraminal stenos is. L1-2: There is a mild diffuse disc bulge. No central spinal canal or neural foraminal stenosis. L2-3: There is a mild diffuse disc bulge. There are degenerative changes of the facets and hypertrop hy of the ligamentum flavum. There is mild narrowing of the central spinal canal. There is mild arline ateral neural foraminal narrowing. L3-4: There is a mild diffuse disc bulge. There are hypertrophic changes of the facets and ligamentu m flavum. There is mild narrowing of the central spinal canal. No significant neural foraminal sten osis is present. L4-5: There is a mild diffuse disc bulge. There are hypertrophic changes of the facets and ligamentu m flavum. There is mild narrowing of the central spinal canal. No significant neural foraminal sten osis is present. L5-S1: There is a mild diffuse disc bulge eccentric to the left. No central spinal canal or neural f oraminal stenosis. Soft tissues: The visualized SI joints and sacrum are well maintained. The paraspinal soft tissues ar e unremarkable. There is no evidence of suspicious enhancement. IMPRESSION: 1. Degenerative changes in the lumbar spine resulting in central spinal canal or neural foraminal anyi nosis as described above. The findings are most marked at the L2-L3 level. 2. L4 vertebral body hemangioma. 3. No suspicious enhancement in the lumbar spine following contrast administration. If there is conc citlali for skeletal metastatic disease, bone scan may be considered for further evaluation. DATA REPOSITORY:
[2022-04-29] MEDS: Normal Saline Flush 10 ML SYR IVP (13:54)
[2022-04-29] MEDS: Gadoterate meglumine 20 ML VIAL IVP (13:55)
== END 2022-04-29 02:44 ==
LOC: DI 02:26
PROVIDERS: PCP Student in an Organized Health Care Education/Training Program; Visit Provider Student in an Organized Health Care Education/Training Program
DX: M47.816 Spondylosis without myelopathy or radiculopathy, lumbar region (principal); D18.09 Hemangioma of other sites
CPT/HCPCS: 72158

== ENCOUNTER 2024-09-02 07:09 | Emergency (ER) | payer OTHER, SELFPAY ==
[2024-09-02] VITALS (17 sets, daily range): BP systolic 144–157; BP diastolic 56–76; PULSE 91–119; RESP 14–24; TEMP 37.2; O2SAT 91–97
--- NOTE | 2024-09-02 07:00 | RT.EKG_ITS ---
APPROVED REPORT Exam: Resting ECG Reason for Exam: SOB Patient Location: E HR:108 bpm ECG Measurements Heart Rate 108 AXIS WA 183 P 68 QRSd 130 QRS 78 QT 350 T -60 QTc 469 Conclusion Sinus tachycardia...rate> 99 Left bundle branch block...QRSd>120, broad/notched R No Occlusion MD
--- NOTE | 2024-09-02 07:23 | W.ED.GENAD ---
Discharge Plan Disposition Patient Disposition: Home Discharge Details Clinical Impression: Voice hoarseness, Hypomagnesemia Primary Care Provider: Grazyna Wilkes ED Provider: Gui Matthews Home Meds and New Rx's Prescriptions: Continued metformin [Glucophage] 500 MG tablet 500 mg PO BID simvastatin 40 MG tablet 40 mg PO DAILY levothyroxine [Synthroid] 100 MCG tablet 100 mcg PO DAILY losartan [Cozaar] 25 MG tablet 50 mg PO DAILY CALCIUM 1 tab PO BID COMBIVENT INHALER 1 - 2 puff Inhalation DAILY PRN PRN MULTIVITAMIN 1 tab PO QAM vitamin E mixed 400 UNIT capsule 400 unit PO DAILY hydrochlorothiazide 50 mg tablet 25 mg PO DAILY omega-3 fatty acids [Fish Oil Concentrate] 1,000 mg capsule 1,000 mg PO DAILY acetaminophen 325 mg capsule 325 mg PO ONCE PRN ibuprofen 400 mg tablet 400 mg PO TID PRN triamcinolone acetonide 0.025 % cream 0.1 applic TP BID carboxymethylcellulose sodium [Refresh Celluvisc] 1 EACH dropperette,gel 1 drp OU PRN PRN Asmanex Twisthaler 220 mcg (120 doses) Aerosol Powdr Breath Activated 1 inh INHALATION BID Discharge Instructions Instructions: Hypomagnesemia Additional Instructions: You are seen in the emergency department for your hoarse voice. Your x-ray showed no sign of pneumonia. Your blood work showed no sign of a heart attack nor blood clot in the lungs. Kidneys are working well. As we discussed develop any difficulty breathing any chest pain any nausea or vomiting please return to the emergency department. Your magnesium level was mildly low. This has been the case in the past. Please follow-up with your primary care provider to have your magnesium level rechecked next week. HPI General Date/Time Provider Initiated Documentation: 09/02/24 07:11. HPI Narrative: MDM This is an overall very well-appearing mildly tachycardic 74-year-old female with hoarse throat cough for which patient will receive evaluation for ACS with troponin testing in setting of nonischemic ECG. Good range of motion in neck so I am not suspicious for retropharyngeal abscess. No pain out of proportion to suggest necrotizing soft tissue infection. Soft nontender abdomen so I am not suspicious for intra-abdominal infection. No dysuria nor frequency making my suspicion low for UTI. Patient is normothermic but reports shortness of breath so will obtain chest x-ray to assess for pneumonia. Given tachycardia and shortness of breath will risk stratify for PE with D-dimer. No rash to chest to suggest zoster. No history of recent emesis to suggest increased risk for esophageal rupture. Uvula midline so I am not suspicious for peritonsillar abscess. Patient has not had fevers and has no significant posterior oropharynx erythema so based on [facility] criteria will defer swab for strep. No B-lines on bedside ultrasound and no crackles nor significant lower extremity edema so I am not suspicious for acute heart failure. Patient is phonating well so I am not suspicious for laryngeal obstruction. She has cranial nerves II through XII intact grossly so I am not suspicious for CVA so I do not feel that she would not be a candidate for lytics nor would she require an MRI. I suspect tachycardia may be from albuterol prehospital. 9:35 AM CBC lacks anemia thrombocytopenia and leukocytosis. D-dimer negative when adjusted for age. Patient had 2 reassuring troponins. She is mildly hypomagnesemic for which she received oral repletion. She is not on a diuretic to suggest increased risk for ongoing magnesium losses. Will advise PCP follow-up for recheck. Lab notable for mildly elevated BUN but no SUNI nor any electrolyte abnormality. Chest x-ray was reassuring. Her tachycardia resolved. She was able to tolerate p.o. She tolerated p.o. without dysphagia making my suspicion even lower for CVA. She was not hypoxic. She had no pneumonia. She felt improved following a bowel movement. We discussed that she should return to the emergency department if she develops shortness of breath chest pain nausea vomiting or failure to drink. She understood her return indications and she was discharged with an empiric trial of expectant outpatient management. HPI The patient presents to the emergency department for evaluation of a raspy voice, nausea, and deep cough. She reports awakening with a raspy voice, accompanied by nausea and an unfamiliar deep cough. She experienced wheezing upon waking, which subsided after coughing. Her respiratory status is currently stable, although she admits to mild shortness of breath. She does not report any chest pain. She attempted to alleviate her symptoms with Combivent, but it was ineffective. She also experienced dizziness and nausea, prompting her to return to her lift chair after using her rollator. She contacted [facility] at approximately 6 AM, who advised her to call [phone] after a series of questions. She does not report any episodes of vomiting. Her dizziness has since resolved. She reports dry mouth and thirst. She expresses uncertainty about whether taking Claritin would have resolved her symptoms. She also reports leg swelling and pain, for which she has been prescribed CeraVe cream. She has no history of heart failure. Exam General: Well-appearing in no acute distress speaking in complete sentences. Head: Normocephalic, atraumatic. Eye: Extraocular eye movements intact. No conjunctival injection. No scleral icterus. Ear, nose, mouth, throat: Grossly normal inspection. Normal voice, handling secretions normally. No significant posterior oropharynx erythema. No enlarged cervical lymph nodes. Neck: Trachea midline. Cardiovascular: Well-perfused distal extremities. Rapid regular rate. Respiratory: Nonlabored respiration. No crackles bilaterally. No significant wheezes. Gastrointestinal: Nondistended abdomen. Soft nontender. Musculoskeletal: No significant lower extremity pitting edema. Moving all 4 extremities spontaneously. Skin: Normal for age and race, grossly normal temperature and turgor. No acute rash. Neurologic: Alert and appropriate, no apparent acute deficits. Cranial nerves II through XII intact grossly. Psychiatric: Mood and manner are appropriate. Grooming and personal hygiene are appropriate. Related Data Home Medications ?Medication ?Instructions ?Recorded ?Confirmed Calcium 1 tab PO BID 06/06/12 09/02/24 Combivent Inhaler 1 - 2 puff inhalation DAILY PRN PRN 06/06/12 09/02/24 Multivitamin 1 tab PO QAM 06/06/12 09/02/24 levothyroxine 100 mcg tablet 100 mcg PO DAILY 06/06/12 09/02/24 (Synthroid) losartan 25 mg tablet (Cozaar) 50 mg PO DAILY 06/06/12 09/02/24 metformin 500 mg tablet 500 mg PO BID 06/06/12 09/02/24 (Glucophage) simvastatin 40 mg tablet 40 mg PO DAILY 06/06/12 09/02/24 vitamin E mixed 400 unit capsule 400 unit PO DAILY 11/09/13 09/02/24 carboxymethylcellulose sodium 1 % 1 drp OU PRN PRN 09/09/14 09/02/24 eye gel in a dropperette (Refresh Celluvisc) mometasone 220 mcg/actuation(120 1 inh inhalation BID 09/11/18 09/02/24 doses)breath activated powder inhaler (Asmanex Twisthaler) acetaminophen 325 mg capsule 325 mg PO ONCE PRN 08/24/19 09/02/24 hydrochlorothiazide 50 mg tablet 25 mg PO DAILY 08/24/19 09/02/24 ibuprofen 400 mg tablet 400 mg PO TID PRN 08/24/19 09/02/24 omega-3 fatty acids 1,000 mg 1,000 mg PO DAILY 08/24/19 09/02/24 capsule (Fish Oil Concentrate) triamcinolone acetonide 0.025 % 0.1 applic topical BID 08/24/19 09/02/24 topical cream Allergies Allergy/AdvReac Type Severity Reaction Status Date / Time JAMARCUS Inhibitors Allergy Unknown noted on Verified 09/02/24 07:25 referral note, no reaction given sulfamethoxazole Allergy Unknown Nausea Verified 09/02/24 07: trimethoprim (From ) Allergy Unknown on Verified 09/02/24 07:25 referral, no reaction noted lisinopril Allergy RASH Unverified 09/02/24 07:25 Penicillins Allergy RASH Unverified 09/02/24 07:25 General ANDREW: 4 PFSH All Active Problems Hypomagnesemia (Acute) Voice hoarseness (Acute) Head injury (Acute) Shoulder pain (Acute) Leg pain (Acute) Abrasion (Acute) Epistaxis (Acute) H/O colonoscopy (Chronic ~10/2019) incomplete colonoscopy. repeat in 1 year or schedule barium enema. Medical History (Updated 09/02/24 @ 09:39 by Gui Matthews MD) Normal colonoscopy (~10/2020) 2020- done at the [facility]. Negative exam. Repeat in 7-10 years. Personal history of malignant neoplasm of breast Other asthma Obstructive sleep apnea Morbid obesity due to excess calories Lichen sclerosus et atrophicus Hypothyroidism Adenomatous polyp (~06/2015) Asthma Cataract Gastroesophageal reflux disease Plantar fasciitis Incontinence mixed Hyperlipidemia Malignant neoplasm of female breast Diabetes mellitus, type 2 Essential hypertension Surgical History S/P colonoscopy 2015- Tubular adenoma portacath insertion and removal for chemo Breast, Lumpectomy R breast quadrectomy Family History Sister Personal history of malignant neoplasm breast CA-in-situ Alzheimer's disease Father No problems noted. Mother Alzheimer's disease Other Cirrhosis of liver Social History Smoking/Tobacco Use Status: Former Tobacco Use Smoking risk assessment performed?: Yes Alcohol Intake: current Alcohol Intake frequency: holidays/special occasions only Alcohol type: beer Drug use: Never Substance use type: does not use Housing: house Do you feel safe at home: Yes Do you feel safe in your relationship?: Yes POCUS Exam (ED) Limited Cardiac Exam DATE OF EXAM: 09/02/24 TIME OF EXAM: 08:26 PROVIDER THAT PERFORMED THE STUDY: Gui Matthews IS THIS A REPEAT EXAM DURING THIS ENCOUNTER: no REASON FOR EXAM: Dyspnea VISUALIZED STRUCTURES: Four Chambers, Left ventricle and LVOT VIEW OBTAINED: Apical 4-Chamber and Parasternal long-axis PERTINENT FINDINGS/IMPRESSION: No pericardial effusion and No RV dilation DIFFERENTIAL DIAGNOSES: Aortic outflow track less than 4 cm, good squeeze, RV less than LV. Could not tolerate subxiphoid view. No B-lines bilaterally. Exam complete
[2024-09-02 07:53] LABS: Abs Immature Grans 0.02 10^3/uL (0.0-0.06); Absolute Basophil Count 0.07 10^3/uL (0.0-0.2); Absolute Eosinophil Count 0.05 10^3/uL (0.0-0.7); Absolute Lymphocyte Count 1.25 10^3/uL (1.2-3.4); Absolute Monocyte Count 0.63 10^3/uL (0.1-0.8); Absolute Neutrophil Count 4.57 10^3/uL (1.2-6.7); Basophils % 1.1 %; Eosinophils % 0.8 %; HCT 40.6 % (36.0-46.0); HGB 12.6 g/dL (11.2-15.7); Immature Grans % 0.3 %; MCH 26.9 pg (27.0-33.0); MCV 87 fL (80-95); MPV 9.7 fL (8.0-11.0); Monocytes % 9.6 %; Neutrophils % 69.2 %; Platelet Count 252 10^3/uL (130-400); RBC 4.68 10^6/uL (3.93-5.22); RDW 13.4 % (11.7-14.6); RDW-SD 42.5 fL; WBC 6.59 10^3/uL (4.4-10.8)
[2024-09-02 08:13] LABS: BUN 26 mg/dL (7-18); CREATININE 0.8 mg/dL (0.55-1.02); Calcium 9.4 mg/dL (8.5-10.1); Chloride 101 mmol/L (98-107); Estimated GFR 76.31 (mL/min/1.73m2); Glucose 173 mg/dL (74-106); Magnesium 1.5 mg/dL (1.8-2.4); Potassium 3.9 mmol/L (3.5-5.1); Sodium 138 mmol/L (136-145); Troponin I 9 ng/L (<or=51)
--- NOTE | 2024-09-02 08:18 | DI.RAD_ITS ---
Exam(s) XR PORTABLE CHEST AP EXAM: XR PORTABLE CHEST AP CLINICAL HISTORY: Chest pain. TECHNIQUE: 2D digital imaging was performed. COMPARISON: CR XR CHEST 2V PA LATERAL from 10/08/2020 FINDINGS: Single AP portable view. Heart size is upper normal. The mediastinum is not widened. Left lung is clear. However, there appears to be significant infiltrate in the lower right lung field. No pleural effusions. IMPRESSION: Significant infiltrate seen in the lower right lung field. Recommend nonportable PA and lateral views when clinically possible or alternatively CT scan. Preliminary virtual Radiology report reviewed. Final report called by myself to ER physician 09/02/2024 at 2:56 p.m. DATA REPOSITORY: RADIATION DOSE DELIVERED:
[2024-09-02 08:24] LABS: D-Dimer 720 ng/mlFEU (<500)
[2024-09-02] MEDS: Magnesium Oxide 400 MG TAB 800 MG PO (08:44)
--- NOTE | 2024-09-02 08:44 | DI.VRAD_ITS ---
PROCEDURE INFORMATION: Exam: XR Chest Exam date and time: 09/02/2024 8:15 AM Age: 74 years old Clinical indication: Shortness of breath TECHNIQUE: Imaging protocol: Radiologic exam of the chest. Views: 1 view. COMPARISON: CR XR CHEST 2V PA LATERAL 10/08/2020 1:10 PM FINDINGS: Lungs: No lobar consolidation. Pleural spaces: No pleural effusion. No pneumothorax. Heart/Mediastinum: Cardiac silhouette enlarged but stable. Vasculature: Aortic tortuosity and arch calcification. Diaphragm: Elevated right hemidiaphragm. Bones/joints: Spine and bilateral acromioclavicular degenerative changes. No acute fracture. Soft tissues: Right axillary surgical clips. IMPRESSION: Nonacute findings. Dictated and Authenticated by: Masoud Engel MD. Orderin Byron Messer MD
[2024-09-02 09:14] LABS: Troponin I 10 ng/L (<or=51)
--- NOTE | 2024-09-02 14:59 | W.EDPROG ---
Date of service: 09/02/24 Time of Service: 14:59 Medical Decision Making Radiology over read this patient's chest x-ray is concerning for right lower lung infiltrate. Given her hoarse voice will initiate empiric treatment with amoxicillin and doxycycline. Patient had been discharged from the emergency department. I was able to calculate a P ORT score and the patient scored 66 making outpatient treatment reasonable. I did not obtain a venous pH and the patient was in the emergency department however she had no anion gap to suggest acidemia. She was saturating well on room air. I called the patient and advised her of this report. She continues feeling well. She had rash when she took penicillins in the past but did not have with cefpodoxime and doxycycline based on her age and comorbidities. We discussed that she should return to the emergency department if she develops shortness of breath chest pain or if she passed out. She will begin her antibiotics tonight. She understood her return indications. Discharge Plan Disposition Patient Disposition: Home Discharge Details Clinical Impression: Voice hoarseness, Hypomagnesemia Primary Care Provider: Grazyna Wilkes ED Provider: Gui Matthews Home Meds and New Rx's Prescriptions: New doxycycline hyclate 100 mg capsule 100 mg PO BID 5 Days Qty: 10 0RF cefpodoxime 200 mg tablet 200 mg PO Q12H 5 Days Qty: 20 0RF Rx Instructions: must administer with a meal/food Continued metformin [Glucophage] 500 MG tablet 500 mg PO BID simvastatin 40 MG tablet 40 mg PO DAILY levothyroxine [Synthroid] 100 MCG tablet 100 mcg PO DAILY losartan [Cozaar] 25 MG tablet 50 mg PO DAILY CALCIUM 1 tab PO BID COMBIVENT INHALER 1 - 2 puff Inhalation DAILY PRN PRN MULTIVITAMIN 1 tab PO QAM vitamin E mixed 400 UNIT capsule 400 unit PO DAILY hydrochlorothiazide 50 mg tablet 25 mg PO DAILY omega-3 fatty acids [Fish Oil Concentrate] 1,000 mg capsule 1,000 mg PO DAILY acetaminophen 325 mg capsule 325 mg PO ONCE PRN ibuprofen 400 mg tablet 400 mg PO TID PRN triamcinolone acetonide 0.025 % cream 0.1 applic TP BID carboxymethylcellulose sodium [Refresh Celluvisc] 1 EACH dropperette,gel 1 drp OU PRN PRN Asmanex Twisthaler 220 mcg (120 doses) Aerosol Powdr Breath Activated 1 inh INHALATION BID Discharge Instructions Instructions: Hypomagnesemia Additional Instructions: You are seen in the emergency department for your hoarse voice. Your x-ray showed no sign of pneumonia. Your blood work showed no sign of a heart attack nor blood clot in the lungs. Kidneys are working well. As we discussed develop any difficulty breathing any chest pain any nausea or vomiting please return to the emergency department. Your magnesium level was mildly low. This has been the case in the past. Please follow-up with your primary care provider to have your magnesium level rechecked next week. Discharge Data Discharge Date/Time-TO BE ENTERED AT DEPARTURE: 09/02/24 10:04
--- NOTE | 2024-09-06 16:29 | NUR.NOTE ---
Nursing Note: Received call from patient looking for Dr. Matthews who was not working today. She reports she is on two different antibiotics but one is almost ending and the other one has 5 more days. She was wondering if she should stop taking the second one the same time her first one ends. This patient was instructed to take all the antibiotics exactly as prescribed until they are gone, even if she is feeling better. Pt verbalized understanding
== END 2024-09-02 10:04 | disposition home or self-care (01) ==
LOC: ER 10:08
PROVIDERS: Emergency Provider Emergency Medicine; PCP Student in an Organized Health Care Education/Training Program
DX: E83.41 Hypermagnesemia (principal); R11.0 Nausea; R49.0 Dysphonia
CPT/HCPCS: 99283 ×2; 36415; 00123; 80048; 93005; 93308; 71045; 83735; 84484; 85025; 85379; 93010

== ENCOUNTER 2024-12-21 17:01 | Inpatient (IN) | payer OTHER, SELFPAY ==
[2024-12-21] VITALS (16 sets, daily range): BP systolic 115–143; BP diastolic 56–93; PULSE 94–116; RESP 16–20; TEMP 36.8; O2SAT 94–98
--- NOTE | 2024-12-21 17:00 | RT.EKG_ITS ---
APPROVED REPORT Exam: Resting ECG Reason for Exam: tachycardia Patient Location: E HR:111 bpm ECG Measurements Heart Rate 111 AXIS IN 103 P 0 QRSd 147 QRS -7 QT 371 T 111 QTc 503 Conclusion Sinus tachycardia, rate 111 LBBB, unchanged from priors No STEMI by Sgarbosa criteria Borderline prolonged QTc at 503ms
--- NOTE | 2024-12-21 17:00 | DI.CT_ITS ---
Exam(s) CT ABDOMEN PELVIS W EXAM: CT ABDOMEN PELVIS W CLINICAL HISTORY: diarrhea, abd pain, burping. Eval obstruction, etc. TECHNIQUE: Imaging Protocol: Axial computed tomography images with coronal and sagittal reformatted images were created and reviewed CONTRAST MATERIAL: Intravenous: Omnipaque 350 Contrast volume:100 ml Oral: no COMPARISON: CT CTA BRAIN from 08/04/2016 FINDINGS: ABDOMEN and PELVIS: Lung Bases: No acute findings. Liver: Normal density. No suspicious mass. Gallbladder and biliary tract: Few tiny gallstones. No wall thickening or pericholecystic fluid. No biliary dilation. Pancreas: Somewhat atrophic. Normal density. No abnormal calcifications or inflammatory process. No evidence of mass. Spleen: Normal. Kidneys: Normal size, contour and axis. No radiodense stones. No obstructive uropathy. No suspicious masses seen. Adrenal glands: No masses seen. Vasculature: Abdominal aorta non-dilated. Soft tissues: Unremarkable. Bladder: No gross wall thickening. No calculi.No focal mass. Bowel: No obstruction. No bowel wall thickening. Appendix normal. Mild sigmoid diverticulosis. Peritoneal cavity: No ascites. No focal collection. No mesenteric inflammatory response. No free air. Bones: There are severe degenerative changes of both hips. Expected degenerative changes of the lumbar spine. Reproductive organs: Unremarkable. Lymph nodes: No pathologically enlarged lymph nodes. IMPRESSION:: No acute abnormality in the abdomen or pelvis. RADIATION DOSE DELIVERED: Total DLP DATA REPOSITORY: All CT scans at this facility are submitted to the National Radiology Data Registry (NRDR) Dose Index Registry (DIR) with the [employer] (A[employer]). RADIATION OPTIMIZATION: All CT scans at this facility use at least one of these dose optimization techniques: automated exposure control; mA and/or kV adjustment per patient size (includes targeted exams where dose is matched to clinical indication); or iterative reconstruction.
--- NOTE | 2024-12-21 17:13 | W.ED.GENAD ---
Discharge Plan Disposition Patient Disposition: Admit to [facility] Condition: Improving Discharge Details Clinical Impression: Diarrhea in adult patient, Acute dehydration Primary Care Provider: Grazyna Wilkes ED Provider: Soraya Mcdaniel Home Meds and New Rx's Prescriptions: No Action metformin [Glucophage] 500 MG tablet 500 mg PO BID simvastatin 40 MG tablet 40 mg PO DAILY levothyroxine [Synthroid] 100 MCG tablet 100 mcg PO DAILY losartan [Cozaar] 25 MG tablet 50 mg PO DAILY CALCIUM 1 tab PO BID COMBIVENT INHALER 1 - 2 puff Inhalation DAILY PRN PRN MULTIVITAMIN 1 tab PO QAM hydrochlorothiazide 50 mg tablet 25 mg PO DAILY acetaminophen 325 mg capsule 325 mg PO ONCE PRN triamcinolone acetonide 0.025 % cream 0.1 applic TP BID carboxymethylcellulose sodium [Refresh Celluvisc] 1 EACH dropperette,gel 1 drp OU PRN PRN Asmanex Twisthaler 220 mcg (120 doses) Aerosol Powdr Breath Activated 1 inh INHALATION BID HPI General Mode of arrival: EMS. Date/Time Provider Initiated Documentation: 12/21/24 17:13. Limitations to Documentation: no limitations. Information obtained by: patient, EMS and old records reviewed. HPI Narrative: This is a 74-year-old female patient with a past medical history significant for breast cancer, GIOVANNI, asthma, diabetes, GERD, presenting for evaluation of diarrhea and abdominal pain with nausea. The patient reports that for the last 24 hours she has had an episode of diarrhea every hour, brown and nonbloody, liquid. She is having some nonspecific abdominal discomfort, has taken some Tylenol and Tums without significant improvement. Has noted some nausea but no vomiting, has not been able to tolerate fluids or food for the last 24 hours. 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 She has not had any significant cough, runny or stuffy nose, body aches, nor fever. She is on town water and drinks bottled water, no recent travel, no recent hospitalizations or antibiotic use. The patient reports no history of abdominal surgeries, last colonoscopy in 2019 (was incomplete). Related Data Home Medications ?Medication ?Instructions ?Recorded ?Confirmed Calcium 1 tab PO BID 06/06/12 12/21/24 Combivent Inhaler 1 - 2 puff inhalation DAILY PRN PRN 06/06/12 12/21/24 Multivitamin 1 tab PO QAM 06/06/12 12/21/24 levothyroxine 100 mcg tablet 100 mcg PO DAILY 06/06/12 12/21/24 (Synthroid) losartan 25 mg tablet (Cozaar) 50 mg PO DAILY 06/06/12 12/21/24 metformin 500 mg tablet 500 mg PO BID 06/06/12 12/21/24 (Glucophage) simvastatin 40 mg tablet 40 mg PO DAILY 06/06/12 12/21/24 carboxymethylcellulose sodium 1 % 1 drp OU PRN PRN 09/09/14 12/21/24 eye gel in a dropperette (Refresh Celluvisc) mometasone 220 mcg/actuation(120 1 inh inhalation BID 09/11/18 12/21/24 doses)breath activated powder inhaler (Asmanex Twisthaler) acetaminophen 325 mg capsule 325 mg PO ONCE PRN 08/24/19 12/21/24 hydrochlorothiazide 50 mg tablet 25 mg PO DAILY 08/24/19 12/21/24 triamcinolone acetonide 0.025 % 0.1 applic topical BID 08/24/19 12/21/24 topical cream Allergies Allergy/AdvReac Type Severity Reaction Status Date / Time JAMARCUS Inhibitors Allergy Unknown noted on Verified 09/02/24 07:25 referral note, no reaction given sulfamethoxazole Allergy Unknown Nausea Verified 09/02/24 07:25 trimethoprim (From [facility]) Allergy Unknown on Verified 09/02/24 07:25 referral, no reaction noted lisinopril Allergy RASH Unverified 09/02/24 07:25 Penicillins Allergy RASH Unverified 09/02/24 07:25 General Stated Complaint: Abd Prob ANDREW: 3 Exam Narrative Exam Narrative: Gen: Awake and alert, in no apparent distress HEENT: Non-icteric sclera Neck: Supple Lungs: No apparent respiratory distress, normal respiratory effort. CV: Appears well perfused, tachycardic rate but regular rhythm, strong distal pulses Abdomen: Non-distended, soft, tender to palpation primarily in the epigastric region without rigidity, rebound, guarding. Patient endorsing rectal urgency MSK: Moves 4 extremities without apparent limitation in ROM Skin: Visualized skin without rashes, cyanosis. Neuro: Normal Gait, no obvious focal deficits or facial asymmetry. Speaks in full, clear sentences. Psych: Appropriate for situation. Course Vital Signs Vital signs: Vital Signs Pulse 116 H 12/21/24 17:06 Respiratory Rate 20 12/21/24 17:06 Blood Pressure 140/78 12/21/24 17:06 Pulse Oximetry 98 12/21/24 17:06 Pulse 116 H 12/21/24 17:06 Respiratory Rate 20 12/21/24 17:06 Blood Pressure 140/78 12/21/24 17:06 Blood Pressure Position Sitting 12/21/24 17:06 Pulse Oximetry 98 12/21/24 17:06 Oxygen Delivery Method Room Air 12/21/24 17: Oxygen Flow Rate 0 12/21/24 17:06 Medical Decision Making This is a 74-year-old female patient presenting for evaluation of nausea, diarrhea, and abdominal discomfort. My differential includes, but is not limited to, gastritis/PUD, gastroenteritis, infectious diarrhea, including C. difficile. Considered medication effects though there have been no recent changes reported. Considered pancreatitis, cholecystitis and gallbladder pathology, hepatitis, appendicitis, diverticulitis, small bowel obstruction. No urinary symptoms to suggest UTI or nephrolithiasis. Considered mesenteric ischemia, aortic pathology, though this is less concerning based on the patient's history and physical exam. We will provide the patient with a liter of IV fluids for rehydration, obtain labs to include CBC, CMP, magnesium, lipase, lactate, and stool studies to include bacterial pathogen's panel and C. difficile. I will provide the patient with Zofran for her nausea, and we will obtain a CT abdomen pelvis with contrast. An EKG was obtained which shows a sinus tachycardia with a left bundle branch block, unchanged from priors, without evidence of acute ischemia. Her QTc is borderline and we will monitor on telemetry for prolongation and avoid excessive redosing of her antinausea medicine. -I independently interpreted the laboratory studies, which show no significant leukocytosis, anemia, or thrombocytopenia. The chemistry panel is without evidence of electrolyte abnormality other than a low magnesium to 1.5, which will be repleted intravenously to avoid exacerbating her diarrhea. No kidney dysfunction or liver injury, however, the patient's BUN to creatinine ratio is slightly above 22 1, and her lactate is elevated to 3.5, suggestive of dehydration in the setting of GI losses. Lipase is low. CT scan reviewed by myself and shows no acute abnormality to explain her symptoms, and specifically is without evidence of diverticulitis, bowel obstruction, etc. On reevaluation the patient's heart rate has started to decrease, and she endorses improvement in her symptoms. Her repeat lactate is improving at 1.8. Her heart rate remains elevated to the 110s, and I feel that she would benefit from an observation admission for ongoing hydration. She was able to produce a stool sample, which is liquid and green. She was noted to have a pressure injury to her sacrum, which was dressed. I left a message with her outpatient [place] PCP, Keisha Ramesh, as she has outpatient home health 3 times per week but only a nursing visit once a month and would benefit from increase in services for wound care after discharge. I reached out to the [place] [facility] as well as our hospitalist, the patient is fully service-connected and the only has 1 bed left. They are comfortable with us admitting the patient here, and our hospitalist has graciously accepted her for admission to their service. I did start the patient on maintenance fluids, 150 mL/h, and provided her with oral intake. She had a negative C. difficile while in the emergency department, stool bacterial pathogen's panel pending. Transferred to the hospitalist service without incident and remained hemodynamically improving though still tachycardic while under my care. Soraya Mcdaniel MD [facility] All Active Problems Diarrhea in adult patient (Acute) Acute dehydration (Acute) Head injury (Acute) Shoulder pain (Acute) Leg pain (Acute) Abrasion (Acute) Epistaxis (Acute) H/O colonoscopy (Chronic ~10/2019) incomplete colonoscopy. repeat in 1 year or schedule barium enema. Medical History Normal colonoscopy (~10/2020) 2020- done at the [place]. Negative exam. Repeat in 7-10 years. Personal history of malignant neoplasm of breast Other asthma Obstructive sleep apnea Morbid obesity due to excess calories Lichen sclerosus et atrophicus Hypothyroidism Adenomatous polyp (~06/2015) Asthma Cataract Gastroesophageal reflux disease Plantar fasciitis Incontinence mixed Hyperlipidemia Malignant neoplasm of female breast Diabetes mellitus, type 2 Essential hypertension Surgical History S/P colonoscopy 2016- Tubular adenoma portacath insertion and removal for chemo Breast, Lumpectomy R breast quadrectomy Family History Sister Personal history of malignant neoplasm breast CA-in-situ Alzheimer's disease Father No problems noted. Mother Alzheimer's disease Other Cirrhosis of liver Social History Smoking/Tobacco Use Status: Former Tobacco Use Smoking risk assessment performed?: Yes Alcohol Intake: current Alcohol Intake frequency: holidays/special occasions only Alcohol type: beer Drug use: Never Substance use type: does not use Housing: house Do you feel safe at home: Yes Do you feel safe in your relationship?: Yes
[2024-12-21 17:42] LABS: Abs Immature Grans 0.01 10^3/uL (0.0-0.06); HCT 41.4 % (36.0-46.0); HGB 13.0 g/dL (11.2-15.7); Immature Grans % 0.2 %; MCH 26.9 pg (27.0-33.0); MCHC 31.4 % (32.0-36.0); MCV 86 fL (80-95); MPV 9.6 fL (8.0-11.0); Platelet Count 256 10^3/uL (130-400); RBC 4.83 10^6/uL (3.93-5.22); RDW 13.4 % (11.7-14.6); RDW-SD 42.0 fL; WBC 6.08 10^3/uL (4.4-10.8)
[2024-12-21] MEDS: Normal Saline - Diluent 50 ML VIAL IJ (17:56)
[2024-12-21] MEDS: Omnipaque 350 MG/ML 100 ML BTL IJ (17:57)
[2024-12-21] MEDS: Normal Saline Flush 10 ML SYR IVP (17:58)
[2024-12-21 18:03] LABS: ALT 16 U/L (14-59); AST 14 U/L (15-37); Albumin 3.7 g/dL (3.4-5.0); Alkaline Phosphatase 66 U/L (46-116); Anion Gap 12.5 mmol/L (3-11); BUN 21 mg/dL (7-18); Bilirubin, Total 0.8 mg/dL (0.2-1.0); CO2 24.5 mmol/L (21.0-32.0); Calcium 9.6 mg/dL (8.5-10.1); Chloride 101 mmol/L (98-107); Estimated GFR 58.39 (mL/min/1.73m2); Glucose 191 mg/dL (74-106); Lipase 14 U/L (<78); Magnesium 1.5 mg/dL (1.8-2.4); Potassium 3.5 mmol/L (3.5-5.1); Sodium 138 mmol/L (136-145); Total Protein 7.6 g/dL (6.4-8.2)
[2024-12-21] MEDS: Lactated Ringers 1,000 ML 1000 ML IV (18:24)
[2024-12-21] MEDS: Ondansetron 4 MG/2 ML VIAL IVP (18:24)
[2024-12-21] MEDS: MAGNESIUM SULFATE 2 GM/50 ML BAG IV_INF (18:30)
--- NOTE | 2024-12-21 20:44 | W.PM.HP.N ---
Date of service: 12/21/24 Time of Service: 20:44 Assessment and Plan Assessment and plan (1) Acute dehydration: Start date: 12/21/24 Status: Acute Assessment and plan: This is a 74-year-old lady with acute onset of watery stools after a prolonged course of outpatient antibiotics for pneumonia. She has a history of respiratory symptoms chronically and does have sleep apnea. She wears CPAP at night. Presently her pulmonary status appears stable with no evidence of residual pneumonia clinically and though her creatinine is at her baseline, she appears dry with persistent sinus tachycardia and dark, concentrated urine with urinalysis pending. Patient will be admitted for IV hydration with clear fluid diet and follow-up on stool for pathogen. C. difficile PCR was negative. MD did agree to the patient being hospitalized at this institution with the patient having full coverage at the [facility]. She is a full code. (2) Diarrhea in adult patient: Start date: 12/21/24 Status: Acute Assessment and plan: Most likely secondary to prolonged IV antibiotic therapy. Less likely to be bacterial pathogen of significance with only a short course of her loose stools. As stated, she is C. difficile PCR negative. Clear fluid diet and advance as tolerated. (3) Hypomagnesemia: Status: Chronic Assessment and plan: Repletion IV and follow-up lab. Patient has had a problem with this in the past and she is on chronic diuretics for treatment of her hypertension. (4) Essential hypertension: Assessment and plan: Stable with hydrochlorothiazide to be held for now. Monitor while in the hospital. (5) Diabetes mellitus, type 2: Assessment and plan: Hold metformin which may have exacerbated her lactic acidosis with her diarrhea illness. Glucometer measurements before meals and at bedtime with sensitive sliding scale coverage. (6) Hypothyroidism: Assessment and plan: Check TSH and continue outpatient replacement therapy. (7) Obstructive sleep apnea: Assessment and plan: Continue outpatient CPAP therapy with home settings. Patient stated that these were low. Weight loss may have helped this problem. History of Present Illness History of Present Illness Chief Complaint: Loose stools with diarrhea for 24 hours. Narrative: This is a 74-year-old female patient who recently was treated for pneumonia as an outpatient with 2 courses of antibiotics [id number] over the last month. Began to have loose stools 24 hours prior to presentation to the ED which continued with watery and foul-smelling stool when she presented. She was evaluated in ED and found to have baseline creatinine without change but urinalysis was concentrated after she did void and she appeared dry with tachycardia. She did respond to IV hydration with less tachycardia and with clear fluids and crackers her loose stools decreased. She was C. difficile negative. Stool cultures were sent for evaluation. Because of her tachycardia and appearing dry, she was admitted for IV hydration and monitoring labs. She had no blood in her stool. She has had no fever recently. Patient has lost weight over the last month because of her repeated pneumonia. She does wear CPAP at night for GIOVANNI. She is morbidly obese. Lab also revealed an increased anion gap and lactate initially and these were improving with IV hydration. Respiratory symptoms were minimal at this time with occasional cough. She does take inhalers chronically with as Asmanex at night and Combivent as needed. She does not appear to have a rescue inhaler. She does go to the [facility] chronically and the [facility] was contacted stating that they had no beds for transfer with patient to be admitted at this institution. She will return home to self-care once improved. She is a full code. Review of Systems Narrative: 13 point review of systems otherwise unrevealing or stable. PFSH All Active Problems Hypomagnesemia (Chronic) Diarrhea in adult patient (Acute) Acute dehydration (Acute) Head injury (Acute) Shoulder pain (Acute) Leg pain (Acute) Abrasion (Acute) Epistaxis (Acute) H/O colonoscopy (Chronic ~10/2019) incomplete colonoscopy. repeat in 1 year or schedule barium enema. Medical History Normal colonoscopy (~10/2020) 2020- done at the [facility]. Negative exam. Repeat in 7-10 years. Personal history of malignant neoplasm of breast Other asthma Obstructive sleep apnea Morbid obesity due to excess calories Lichen sclerosus et atrophicus Hypothyroidism Adenomatous polyp (~06/2015) Asthma Cataract Gastroesophageal reflux disease Plantar fasciitis Incontinence mixed Hyperlipidemia Malignant neoplasm of female breast Diabetes mellitus, type 2 Essential hypertension Surgical History S/P colonoscopy 2015- Tubular adenoma portacath insertion and removal for chemo Breast, Lumpectomy R breast quadrectomy Family History Sister Personal history of malignant neoplasm breast CA-in-situ Alzheimer's disease Father No problems noted. Mother Alzheimer's disease Other Cirrhosis of liver Social History Smoking/Tobacco Use Status: Former Tobacco Use Smoking risk assessment performed?: Yes Alcohol Intake: current Alcohol Intake frequency: holidays/special occasions only Alcohol type: beer Drug use: Never Substance use type: does not use Housing: house Do you feel safe at home: Yes Do you feel safe in your relationship?: Yes Meds Allergies and Home Medications Allergies Allergy/AdvReac Type Severity Reaction Status Date / Time JAMARCUS Inhibitors Allergy Unknown noted on Verified 09/02/24 07:25 referral note, no reaction given sulfamethoxazole Allergy Unknown Nausea Verified 09/02/24 07: trimethoprim (From [facility]) Allergy Unknown on Verified 09/02/24 07:25 referral, no reaction noted lisinopril Allergy RASH Unverified 09/02/24 07:25 Penicillins Allergy RASH Unverified 09/02/24 07:25 Home Medications ?Medication ?Instructions ?Recorded ?Confirmed ?Type Calcium 1 tab PO BID 06/06/12 12/21/24 History Combivent Inhaler 1 - 2 puff inhalation DAILY PRN PRN 06/06/12 12/21/24 History Multivitamin 1 tab PO QAM 06/06/12 12/21/24 History levothyroxine 100 mcg tablet 100 mcg PO DAILY 06/06/12 12/21/24 History (Synthroid) losartan 25 mg tablet (Cozaar) 50 mg PO DAILY 06/06/12 12/21/24 History metformin 500 mg tablet 500 mg PO BID 06/06/12 12/21/24 History (Glucophage) simvastatin 40 mg tablet 40 mg PO DAILY 06/06/12 12/21/24 History carboxymethylcellulose sodium 1 % 1 drp OU PRN PRN 09/09/14 12/21/24 History eye gel in a dropperette (Refresh Celluvisc) mometasone 220 mcg/actuation(120 1 inh inhalation BID 09/11/18 12/21/24 History doses)breath activated powder inhaler (Asmanex Twisthaler) acetaminophen 325 mg capsule 325 mg PO ONCE PRN 08/24/19 12/21/24 History hydrochlorothiazide 50 mg tablet 25 mg PO DAILY 08/24/19 12/21/24 History triamcinolone acetonide 0.025 % 0.1 applic topical BID 08/24/19 12/21/24 History topical cream Exam Narrative Exam Narrative: General: Patient appears appropriate for age, very talkative and in no acute distress. She is alert and oriented x 3. HEENT:: Normocephalic, eyes with pupils equal and reactive to light symmetrically, extraocular movement intact and sclera anicteric. Oropharynx with slightly dry mucosa and fair dentition. Neck: Supple without JVD. Back: Stooped posture without CVA tenderness. Lungs: Bronchovesicular breath sounds diffusely with no focalizing rales or rhonchi. No expiratory wheeze. Breast: Exam deferred. Chest: Tender to palpation over the anterior chest which appears to be chest wall tenderness but patient states is chronic. No focalizing no crepitus. Heart: Tachycardic rate with regular rhythm. Distant heart sounds. No murmurs or gallop appreciated. Abdomen: Obese contour soft palpation but uncomfortable with deep palpation without guarding or rebound. No palpable hepatosplenomegaly. Bowel sounds positive in all quadrants. Genitalia/rectal: Exam deferred. Extremities: 2-3+ nonpitting edema over both lower extremities with obesity. Chronic skin changes with slight atrophy and loss of hair over the legs. Fair capillary refill. Skin: Normal color, warm and dry. Neuro: Cranial nerves II through XII gross intact, no focalizing motor deficits and no tremor. Psych: Normal affect and mood. No abnormal thought processes. Remote and recent memory intact. Results Imaging Imaging Studies: EXAM: CT ABDOMEN PELVIS W Date of exam: 12/21/2024 CLINICAL HISTORY: diarrhea, abd pain, burping. Eval obstruction, etc. TECHNIQUE: Imaging Protocol: Axial computed tomography images with coronal and sagittal reformatted images were created and reviewed CONTRAST MATERIAL: Intravenous: Omnipaque 350 Contrast volume:100 ml Oral: no COMPARISON: CT CTA BRAIN from 08/04/2016 FINDINGS: ABDOMEN and PELVIS: Lung Bases: No acute findings. Liver: Normal density. No suspicious mass. Gallbladder and biliary tract: Few tiny gallstones. No wall thickening or pericholecystic fluid. No biliary dilation. Pancreas: Somewhat atrophic. Normal density. No abnormal calcifications or inflammatory process. No evidence of mass. Spleen: Normal. Kidneys: Normal size, contour and axis. No radiodense stones. No obstructive uropathy. No suspicious masses seen. Adrenal glands: No masses seen. Vasculature: Abdominal aorta non-dilated. Soft tissues: Unremarkable. Bladder: No gross wall thickening. No calculi.No focal mass. Bowel: No obstruction. No bowel wall thickening. Appendix normal. Mild sigmoid diverticulosis. Peritoneal cavity: No ascites. No focal collection. No mesenteric inflammatory response. No free air. Bones: There are severe degenerative changes of both hips. Expected degenerative changes of the lumbar spine. Reproductive organs: Unremarkable. Lymph nodes: No pathologically enlarged lymph nodes. IMPRESSION:: No acute abnormality in the abdomen or pelvis. Labs 12/21/24 17:30 12/21/24 17:30 Labs: Laboratory Results - last 24 hr 12/21/24 12/21/24 17:30 20:09 WBC 6.08 RBC 4.83 Hgb 13.0 Hct 41.4 MCV 86 MCH 26.9 L MCHC 31.4 L RDW 13.4 Plt Count 256 MPV 9.6 Immature Gran % 0.2 Neutrophils % 84.1 Lymphocytes % 4.9 Monocytes % 9.5 Eosinophils % 1.0 Basophils % 0.3 Nucleated RBC % 0.0 Absolute Neutrophils 5.11 Absolute Lymphocytes 0.30 L Absolute Monocytes 0.58 Absolute Eosinophils 0.06 Absolute Basophils 0.02 VBG Lactate 3.5 H* 1.8 Sodium 138 Potassium 3.5 Chloride 101 Carbon Dioxide 24.5 Anion Gap 12.5 H BUN 21 H Creatinine 1.0 Est GFR (CKD-EPI 2020) 58.39 Glucose 191 H Calcium 9.6 Magnesium 1.5 L Total Bilirubin 0.8 AST 14 L ALT 16 Alkaline Phosphatase 66 Total Protein 7.6 Albumin 3.7 Lipase 14 Last Vital Signs Pulse 110 H 12/21/24 20:01 Resp 18 12/21/24 19:00 BP 131/84 12/21/24 20:01 Pulse Ox 97 12/21/24 20:01 Time Spent Time spent with Patient: >75 minutes Time was spent: preparing to see the patient(eg.review tests), obtaining and/or reviewing separately otained hiistory, ordering medications,tests, procedures, indepentently interpreting results and counseling the patient
[2024-12-21] MEDS: Lactated Ringers 1,000 ML 150 ML IV (21:05)
[2024-12-21 21:58] LABS: EPI 027-NAP1-B1 PRESUMPTIVE NEGATIVE
[2024-12-21 23:46] LABS: COVID-19 PCR Negative (Negative); RSV PCR Negative (Negative)
[2024-12-22 00:05] VITALS: PULSE 105; O2SAT 95
[2024-12-22] MEDS: Lactated Ringers 1,000 ML 150 ML IV ×2 (00:12→06:24)
[2024-12-22] MEDS: Simvastatin 40 MG TAB PO ×2 (00:22→20:48)
[2024-12-22] MEDS: Levothyroxine 100 MCG TAB PO (06:21)
[2024-12-22 07:06] LABS: HCT 35.5 % (36.0-46.0); HGB 11.4 g/dL (11.2-15.7); MCH 27.7 pg (27.0-33.0); MCHC 32.1 % (32.0-36.0); MCV 86 fL (80-95); MPV 10.0 fL (8.0-11.0); Platelet Count 207 10^3/uL (130-400); RBC 4.12 10^6/uL (3.93-5.22); RDW 13.7 % (11.7-14.6); RDW-SD 43.3 fL; WBC 4.11 10^3/uL (4.4-10.8)
[2024-12-22 07:27] VITALS: BP 98/53; PULSE 93; RESP 17; TEMP 36.9; O2SAT 96
[2024-12-22 07:33] LABS: TSH (W/Ref FT4) 0.35 uIU/mL (0.36-3.74)
--- NOTE | 2024-12-22 08:00 | W.NUTRFU ---
Date of service: 12/22/24 Time of Service: 15:05 Nutrition Note NOTE: Received request for nutrition consult re: diabetes mgt/education. Pt admitted for acute dehydration related to acute diarrhea, thought to be caused by recent IV ABX for PNA. Current BMI congruent with class I obesity. Pt's weight history demonstrates a 8% loss of body weight over the last 4 months (104kg 09/02/24 down to 95.4 on 12/21). She states this was intentional loss. Takes metformin at home - 500mg BID, which is currently held - ordered for sensitive ss at meals and 22:00. Estimated energy needs: 1919kcals (REEx1.3AF), 90-112g protein (1.2-1.5g per kg of AjBW), 1919mL fluid (1 mL per required kcal) Pt offered banatrol BID for diarrhea mgt. Pt has been accepted to health and rehab next door and states waiting to see if [facility] will cover. Will continue monitor glucose, intake, ONS toleration. Pt made aware of outpatient nutrition services and also RDN on staff next door to help with nutrition needs, diabetes education. She related no significant questions at this time. Time Spent in Nutritional Counseling and Treatment: 10 min
[2024-12-22 08:03] LABS: ALT 9 U/L (14-59); AST 11 U/L (15-37); Albumin 2.7 g/dL (3.4-5.0); Alkaline Phosphatase 51 U/L (46-116); Anion Gap 9.1 mmol/L (3-11); BUN 15 mg/dL (7-18); Bilirubin, Total 0.5 mg/dL (0.2-1.0); CO2 25.9 mmol/L (21.0-32.0); Calcium 8.0 mg/dL (8.5-10.1); Chloride 105 mmol/L (98-107); Estimated GFR 92.97 (mL/min/1.73m2); Glucose 131 mg/dL (74-106); Magnesium 1.8 mg/dL (1.8-2.4); Potassium 3.0 mmol/L (3.5-5.1); Sodium 140 mmol/L (136-145); Total Protein 5.7 g/dL (6.4-8.2)
[2024-12-22] MEDS: Mometasone 220 MCG 14 DOSE INHALER 1 PUFF IH (08:32)
--- NOTE | 2024-12-22 08:34 | INITIAL_ITS ---
Date of service: 12/22/24 Time of Service: 08:34 Care Management Initial Assmt Initial Assessment Reason for Hospitalization: Acute Dehydration Functional Status/Living Situation Patient Presentation: Evelia is admitted to [facility] for acute dehydration and was awake and sitting up in bed when CM met with her. She is pleasant and easily engages in conversation. She resides alone in her single-family home in [place]. She has three children: daughter Raffaele and son Luis whom live locally, and a son Akash, whom resides in [place]. All are supportive, per pt though their assistance is limited as they each work full-time. Evelia is retired from the [employer]. She is disabled at baseline and 100% VA connected. Evelia reports that she ambulates using a rollator walker, has a stair glide and a ramp leading to her front door ( though she rarely leaves the home due to being homebound.) [place] [facility] [place]. CM spoke with her visiting nurse/community CM from [facility] to get more information on her community supports. Per Chelo, Evelia is chronically unable to transfer independently, although is functional in her home environment and able to ambulate once up with a chairlift. Her VA PCP is Keisha Gayle, her last home visit was in July. Chelo goes out monthly and she also receives caregiver support through the VA, 3 hours/day, 3 days per week. PT and wound consults are pending. Chelo requests [facility] RN services for wound care of her chronic sacral ulcer, if needed. Per Chelo, patient is able to discharge home with [facility] services, as long as they are billed under her Medicare, not the VA. If STR is needed and agreed to (not anticipated by Chelo), she can discharge to a contracted facility. CM will continue to follow and support discharge needs. PT recommends SNF for STR, patient is agreeable. Referrals are being sent to [facility] and [facility]. Town of Residence: [place] Resides with: Alone Significant Other/Family: Local Natural Supports: She has three children: daughter Raffaele and son Luis whom live locally, and a son Akash, whom resides in [place]. [place] support through the [place] Employment Status: [place]ired ([place], was in the [employer]) Instrumental Activities of Daily Living (ADLs): Requires support ([place] the [place] [place] and receives caregiver support through the VA, 3 hours/day, 3 days per week.) with Dishes/food prep, Groceries, Laundry and Transportation Medications Medication Management: No Issues/Barriers identified Physical Functioning/Mobility Assistive Device: Rollating Walker, Chair lift, Stair glide, ramp Advance Directives Advance Directives: Do you have an Advance Directive: Y 10/20/ 14, 15:45 AD On File at [facility]: N 13, 13:37 Date Asked 12/21/24 Today, 08:19 AD Date Reviewed COLST On File at [facility] COLST Date Scanned Code Status Resuscitation Status Full Code Insurance Coverage/Financial Issues [place]: [place] - [id number] [place] Care Team Visit Care Team Role Provider Type Gui Romo MD [facility] STAFF PHYSICIAN Grazyna Wilkes Primary Care Provider NURSE PRACTITIONER Martina Shaffer RDN, [facility] Other Providers [employer] Jero Vera RDN Other Providers [employer] F[employer]ER Soraya Mcdaniel MD Emergency Provider [facility] STAFF PHYSICIAN Akash Adamson Admit Provider NON-[facility] STAFF PHYSICIAN Attending Provider Discharge Potential Discharge Needs: PCP F/U Appt ([place] [place] [facility] [place], [facility] PCP is Keisha Ramesh.) Anticipated Barriers to Discharge: None Identified Patient/Family Education Needs: Review discharge instructions, discuss Ask Me Three Transportation: RCT (RCT W/C van vs amily/friend if going home with services) RCT Transportation: Wheel chair van Plan: PT recommends SNF for STR, patient is agreeable. Referrals are being sent to [facility] and [facility] [place]. Wound consults are pending. Patient will follow up with VA and Community providers and continue per her discharge plan of care. Transportation will be dependent on dispo. CM will follow. Social Determinants of Health Screening Social Determinants of health last assessed in clinic: 12/22/24 Will the Patient Participate in the Screening?: Yes Do you worry about having a steady place to live?: no Problems where you live: no known problems In the past 12 months, have you had to go without electric, gas, oil or water in your home?: no 1. Within the past 12 months, we worried whether our food would run out before we got money to buy more.: Never true 2. Within the past 12 months, the food we bought just didn't last and we didn't have money to get more.: Never true Has lack of transportation kept you from medical appointments or from doing things needed for daily living?: no Has anyone in your life made you feel unsafe or unsupported?: no How hard is it for you to pay for the very basics like food, housing, medical care, and heating? Would you say it is:: Not hard at all Do you want help finding or keeping work or a job?: I do not need or want help If for any reason you need help with day-to-day activities such as bathing, preparing meals, shopping, managing finances, etc., do you get the help you need?: I don?t need any help How often do you feel lonely or isolated from those around you?: Never Do you speak a language other than Arabic at home?: No Does the patient want assistance with any of the above?: No PFSH All Active Problems Weakness (Acute) Pressure ulcer (Acute) Advanced care planning/counseling discussion (Acute) Palliative care patient (Acute) Hypomagnesemia (Chronic) Diarrhea in adult patient (Acute) Acute dehydration (Acute) Head injury (Acute) Shoulder pain (Acute) Leg pain (Acute) Abrasion (Acute) Epistaxis (Acute) H/O colonoscopy (Chronic ~10/2019) incomplete colonoscopy. repeat in 1 year or schedule barium enema. Medical History Normal colon[place] (~10/2020) [place] Negative exam. Repeat in 7-10 years. Personal history of malignant neoplasm of breast Other asthma Obstructive sleep apnea Morbid obesity due to excess calories Lichen sclerosus et atrophicus Hypothyroidism Adenomatous polyp (~06/2015) Asthma Cataract Gastroesophageal reflux disease Plantar fasciitis Incontinence mixed Hyperlipidemia Malignant neoplasm of female breast Diabetes mellitus, type 2 Essential hypertension Surgical History S/P colonoscopy 2015- Tubular adenoma portacath insertion and removal for chemo Breast, Lumpectomy R breast quadrectomy Family History Sister Personal history of malignant neoplasm breast CA-in-situ Alzheimer's disease Father No problems noted. Mother Alzheimer's disease Other Cirrhosis of liver Social History Smoking/Tobacco Use Status: Former Tobacco Use Smoking risk assessment performed?: Yes Alcohol Intake: current Alcohol Intake frequency: holidays/special occasions only Alcohol type: beer Drug use: Never Substance use type: does not use Housing: house Do you feel safe at home: Yes Do you feel safe in your relationship?: Yes
[2024-12-22] MEDS: Enoxaparin 40 MG/0.4 ML SYR SC (08:53)
[2024-12-22] MEDS: Multivitamin w/Minerals TAB 1 TAB PO (08:53)
[2024-12-22] MEDS: Normal Saline Flush 10 ML SYR IVP ×2 (08:55→20:49)
[2024-12-22] MEDS: Potassium Chloride 20 MEQ TABCR 40 MEQ PO ×3 (09:03→20:48)
[2024-12-22 09:15] LABS: Glucose Negative (Negative)
--- NOTE | 2024-12-22 09:56 | W.PM.PROGNOT ---
Date of Service Date of service: 12/22/24 Time of Service: 09:56 Assessment and Plan Assessment and plan (1) Acute dehydration: Start date: 12/21/24 Status: Acute Assessment and plan: Improved. Related to diarrhea after prolonged antibiotic course. Cut IVF rate, can stop if continues to increase po intake. (2) Diarrhea in adult patient: Start date: 12/21/24 Status: Acute Assessment and plan: Improving. C-diff negative. Fecal pathogens pending. Now tolerating regular diet. (3) Hypomagnesemia: Status: Chronic Assessment and plan: Repleted, now normal. replace potassium orally today (4) Essential hypertension: Assessment and plan: Holding HCTZ, BP still low normal. continue losartan. (5) Diabetes mellitus, type 2: Assessment and plan: Holding metformin after CT, can resume 12/24 Get A1c to assess chronic control. (6) Hypothyroidism: Assessment and plan: TSH low suggesting overcorrection, decrease dose from 100mcg to 88mcg (7) Obstructive sleep apnea: Assessment and plan: Wears CPAP at home. Get here if possible (8) Pressure ulcer: Status: Acute Assessment and plan: to coccyx. Present on admission. Wound consult pending, routine wound care.. This is related to chronic poor mobility. (9) Palliative care patient: Status: Acute Assessment and plan: Appreciate palliative input, see note. (10) Weakness: Status: Acute Assessment and plan: Acute on chronic general weakness, deconditioned. Will need SNF per PT evaluation. Continue to work with PT, monitor, plan SNF placement if not imrpoving. Subjective Subjective Patient reports: tolerating liquids well; denies nausea, vomiting, shortness of breath or fever Interval history since last seen: She is feeling a little better. No more diarrhea overnight. Had saltines, felt okay. No abdominal pain now. She is still quite week. She needs help even getting out of bed, uses walker to get to commode. This has developed over months. She has some chronic pain in her back and neck. Exam Narrative Exam Narrative: General: Alert and oriented, NAD CV: RRR, no m/g Respiratory: respirations appear even and unlabored at rest and with talking, CTAB. abd: soft, NT skin: over arline coccyx darkened skin with shallow ulceration. Ext: trace piting bilateral ankles, generally puffy. moves extremities in bed but inable to sit up or rotate to sit on side of bed without assistance. Objective Last Vital Signs Temp 36.9 C 12/22/24 07:27 Pulse 93 H 12/22/24 07:27 Resp 17 12/22/24 07:27 BP 98/53 L 12/22/24 07:27 Pulse Ox 96 12/22/24 07:27 Laboratory Results - last 24 hr 12/21/24 12/21/24 12/21/24 17:30 20:09 20:24 WBC 6.08 RBC 4.83 Hgb 13.0 Hct 41.4 MCV 86 MCH 26.9 L MCHC 31.4 L RDW 13.4 Plt Count 256 MPV 9.6 Immature Gran % 0.2 Neutrophils % 84.1 Lymphocytes % 4.9 Monocytes % 9.5 Eosinophils % 1.0 Basophils % 0.3 Nucleated RBC % 0.0 Absolute Neutrophils 5.11 Absolute Lymphocytes 0.30 L Absolute Monocytes 0.58 Absolute Eosinophils 0.06 Absolute Basophils 0.02 VBG Lactate 3.5 H* 1.8 Sodium 138 Potassium 3.5 Chloride 101 Carbon Dioxide 24.5 Anion Gap 12.5 H BUN 21 H Creatinine 1.0 Est GFR (CKD-EPI 2020) 58.39 Glucose 191 H Calcium 9.6 Magnesium 1.5 L Total Bilirubin 0.8 AST 14 L ALT 16 Alkaline Phosphatase 66 Total Protein 7.6 Albumin 3.7 Lipase 14 TSH Free T4 Urine Color Urine Clarity Urine pH Ur Specific [place] Urine Protein Urine Ketones Urine Blood Urine Nitrite Urine Bilirubin Urine Urobilinogen Ur Leukocyte Esterase Urine Glucose Stl C.difficile Tox PCR Negative COVID-19 Source SARS-CoV-2 (PCR) Influenza Type A (PCR) Influenza Type B (PCR) RSV (PCR) 12/21/24 12/22/24 12/22/24 22:45 02:58 06:10 WBC 4.11 L RBC 4.12 Hgb 11.4 Hct 35.5 L MCV 86 MCH 27.7 MCHC 32.1 RDW 13.7 Plt Count 207 MPV 10.0 Immature Gran % Neutrophils % Lymphocytes % Monocytes % Eosinophils % Basophils % Nucleated RBC % Absolute Neutrophils Absolute Lymphocytes Absolute Monocytes Absolute Eosinophils Absolute Basophils VBG Lactate Sodium 140 Potassium 3.0 L Chloride 105 Carbon Dioxide 25.9 Anion Gap 9.1 BUN 15 Creatinine 0.6 Est GFR (CKD-EPI 2020) 92.97 Glucose 131 H Calcium 8.0 L Magnesium 1.8 Total Bilirubin 0.5 AST 11 L ALT 9 L Alkaline Phosphatase 51 Total Protein 5.7 L Albumin 2.7 L Lipase TSH 0.35 L Free T4 1.29 Urine Color Yellow Urine Clarity Clear Urine pH 6.0 Ur Specific [place] 1.010 Urine Protein Negative Urine Ketones Negative Urine Blood Negative Urine Nitrite Negative Urine Bilirubin Negative Urine Urobilinogen 0.2 Ur Leukocyte Esterase Negative Urine Glucose Negative Stl C.difficile Tox PCR COVID-19 Source Nasopharynx SARS-CoV-2 (PCR) Negative Influenza Type A (PCR) Negative Influenza Type B (PCR) Negative RSV (PCR) Negative Time Spent with Patient Time Spent with Patient: 35-49 minutes Time was spent: preparing to see the patient(eg.review tests), obtaining and/or reviewing separately otained hiistory, ordering medications,tests, procedures, referring, communicating with other health out of school hours care worker, indepentently interpreting results, counseling the patient and care coordination
[2024-12-22] MEDS: Loratidine 10 MG TAB PO (11:23)
[2024-12-22 11:27] VITALS: BP 107/64; PULSE 84; RESP 17; TEMP 36.7; O2SAT 97
--- NOTE | 2024-12-22 12:06 | W.PALLCONSUL ---
Date of service: 12/22/24 Time of Service: 12:07 History of Present Illness Narrative: Evelia was seen in her hospital room. She was admitted for diarrhea and was noted to be very deconditioned. She lives alone. She has a caregiver that comes in 3x/week for 3 hours per visit. She uses her rollater walker to get around. She has a lift chair that she uses to get upstairs for showers. She has MOW and utilizes door dash. She feels she is eating and drinking well. Evelia feels she is getting along fairly well at home. However, she does have a pressure ulcer on her bottom, indicating that she is quiet sedentary at home. She has an RN from [facility] that manages her wound. She feels the wound needs more attention. Her son, Luis checks on her frequently. She also has a daughter, Raffaele who lives locally but she is very busy and does not check in as frequently. Her youngest son, Akash lives in [place]. Her goal is to remain in her home through the end of her life. She recognizes that she will need more support for this to work out. She believes she has AD on file from the [facility]- will ask CM to check when they speak to her case checker at NH. She would like to meet with Palliative care again to go over her AD because she thinks she did them a long time ago and things may have changed. She is not sure who she put for HCA, either her son Luis Braxton or daughter, Raffaele Grider. Reviewed that they could be co-agents or she can choose one to be first and the other to be second. She does not think she named her youngest son, Akash Tarango because he lives in [place]. She may want him to be added to the section of others who may be consulted. Reviewed CODE status. She wishes to remain a FULL code at this point. Reviewed that this is something that Palliative will continue to review in the future with her. Assessment and Plan Assessment and plan (1) Acute dehydration: Start date: 12/21/24 Status: Acute Assessment and plan: Improving. Related to diarrhea after prolonged antibiotic course. (2) Diarrhea in adult patient: Start date: 12/21/24 Status: Acute Assessment and plan: Improving. C-diff negative. About to eat a regular tray for lunch. (3) Hypomagnesemia: Status: Chronic Assessment and plan: Repleted (4) Essential hypertension: (5) Diabetes mellitus, type 2: (6) Hypothyroidism: (7) Obstructive sleep apnea: Assessment and plan: Wears CPAP at home. (8) Pressure ulcer: Status: Acute Assessment and plan: to coccyx. Present on admission. Wound consult pending. (9) Palliative care patient: Status: Acute Assessment and plan: She is interested in Palliative F/u to review AD/HCA. She would benefit from ongoing conversations re: GOC and support in her deconditioned/declining state. (10) Advanced care planning/counseling discussion: Status: Acute Assessment and plan: She believes she has AD/HCA at NH. CM attempting to get this. She feels it would have been quite a while ago that this was completed and she wants to review. She appears very deconditioned and with a pressure ulcer on her bottom. She lives alone with VA support. She feels she needs more support. She was seen by PT who recommended SNF for STR, this was not known at the time of the visit. She states her preference is to go home on discharge but this should be revisited. She wishes to remain in her home through the end of her life. She has children who live locally. She will certainly need more support as she declines. She is currently a FULL CODE, this will be part of an ongoing conversation. F/u outpatient. Review of Systems Narrative: Per HPI, feeling better, diarrhea improved. She is about to eat a regular lunch. PFSH All Active Problems Pressure ulcer (Acute) Advanced care planning/counseling discussion (Acute) Palliative care patient (Acute) Hypomagnesemia (Chronic) Diarrhea in adult patient (Acute) Acute dehydration (Acute) Head injury (Acute) Shoulder pain (Acute) Leg pain (Acute) Abrasion (Acute) Epistaxis (Acute) H/O colonoscopy (Chronic ~10/2019) incomplete colonoscopy. repeat in 1 year or schedule barium enema. Medical History Normal colonoscopy (~10/2020) 2020- done at the [facility]. Negative exam. Repeat in 7-10 years. Personal history of malignant neoplasm of breast Other asthma Obstructive sleep apnea Morbid obesity due to excess calories Lichen sclerosus et atrophicus Hypothyroidism Adenomatous polyp (~06/2015) Asthma Cataract Gastroesophageal reflux disease Plantar fasciitis Incontinence mixed Hyperlipidemia Malignant neoplasm of female breast Diabetes mellitus, type 2 Essential hypertension Surgical History S/P colonoscopy 2016- Tubular adenoma portacath insertion and removal for chemo Breast, Lumpectomy R breast quadrectomy Family History Sister Personal history of malignant neoplasm breast CA-in-situ Alzheimer's disease Father No problems noted. Mother Alzheimer's disease Other Cirrhosis of liver Social History Smoking/Tobacco Use Status: Former Tobacco Use Smoking risk assessment performed?: Yes Alcohol Intake: current Alcohol Intake frequency: holidays/special occasions only Alcohol type: beer Drug use: Never Substance use type: does not use Housing: house Do you feel safe at home: Yes Do you feel safe in your relationship?: Yes Exam Narrative Exam Narrative: General: very pleasant, well-nourished, older female lying in bed with HOB elevated. She is awake, alert, talkative, engages in the visit, answers questions appropriately. She does not appear to be in any distress. HEENT: normocephalic, atraumatic, EOMI, mmm Neck: supple Respiratory: respirations appear even and unlabored at rest and with talking. Ext: moves extremities freely. Results Last Vital Signs Temp 36.7 C 12/22/24 11:27 Pulse 84 12/22/24 11:27 Resp 17 12/22/24 11:27 BP 107/64 12/22/24 11:27 Pulse Ox 97 12/22/24 11:27 Labs 12/22/24 06:10 12/22/24 06:10 Labs: Laboratory Results - last 24 hr 12/21/24 12/21/24 12/21/24 17:30 20:09 20:24 WBC 6.08 RBC 4.83 Hgb 13.0 Hct 41.4 MCV 86 MCH 26.9 L MCHC 31.4 L RDW 13.4 Plt Count 256 MPV 9.6 Immature Gran % 0.2 Neutrophils % 84.1 Lymphocytes % 4.9 Monocytes % 9.5 Eosinophils % 1.0 Basophils % 0.3 Nucleated RBC % 0.0 Absolute Neutrophils 5.11 Absolute Lymphocytes 0.30 L Absolute Monocytes 0.58 Absolute Eosinophils 0.06 Absolute Basophils 0.02 VBG Lactate 3.5 H* 1.8 Sodium 138 Potassium 3.5 Chloride 101 Carbon Dioxide 24.5 Anion Gap 12.5 H BUN 21 H Creatinine 1.0 Est GFR (CKD-EPI 2020) 58.39 Glucose 191 H Calcium 9.6 Magnesium 1.5 L Total Bilirubin 0.8 AST 14 L ALT 16 Alkaline Phosphatase 66 Total Protein 7.6 Albumin 3.7 Lipase 14 TSH Free T4 Urine Color Urine Clarity Urine pH Ur Specific [place] Urine Protein Urine Ketones Urine Blood Urine Nitrite Urine Bilirubin Urine Urobilinogen Ur Leukocyte Esterase Urine Glucose Stl C.difficile Tox PCR Negative COVID-19 Source SARS-CoV-2 (PCR) Influenza Type A (PCR) Influenza Type B (PCR) RSV (PCR) 12/21/24 12/22/24 12/22/24 22:45 02:58 06:10 WBC 4.11 L RBC 4.12 Hgb 11.4 Hct 35.5 L MCV 86 MCH 27.7 MCHC 32.1 RDW 13.7 Plt Count 207 MPV 10.0 Immature Gran % Neutrophils % Lymphocytes % Monocytes % Eosinophils % Basophils % Nucleated RBC % Absolute Neutrophils Absolute Lymphocytes Absolute Monocytes Absolute Eosinophils Absolute Basophils VBG Lactate Sodium 140 Potassium 3.0 L Chloride 105 Carbon Dioxide 25.9 Anion Gap 9.1 BUN 15 Creatinine 0.6 Est GFR (CKD-EPI 2020) 92.97 Glucose 131 H Calcium 8.0 L Magnesium 1.8 Total Bilirubin 0.5 AST 11 L ALT 9 L Alkaline Phosphatase 51 Total Protein 5.7 L Albumin 2.7 L Lipase TSH 0.35 L Free T4 1.29 Urine Color Yellow Urine Clarity Clear Urine pH 6.0 Ur Specific [place] 1.010 Urine Protein Negative Urine Ketones Negative Urine Blood Negative Urine Nitrite Negative Urine Bilirubin Negative Urine Urobilinogen 0.2 Ur Leukocyte Esterase Negative Urine Glucose Negative Stl C.difficile Tox PCR COVID-19 Source Nasopharynx SARS-CoV-2 (PCR) Negative Influenza Type A (PCR) Negative Influenza Type B (PCR) Negative RSV (PCR) Negative Time Spent Time Spent with Patient Time Spent(min): 58
--- NOTE | 2024-12-22 13:34 | IN_ITS ---
PT Notes Visit Reasons: Acute Dehydration with Diarrhea Physical Therapy Inpatient Initial Evaluation Date: 12/22/2024 Referring Doctor: Dr Romo PT Orders: PT CONSULT: Eval for assistive device Precautions: IV left upper extremity antecubital, fall risk, standard Patient Profile/Admitting Diagnosis: Patient is 74-year-old female presented to the ED with weakness episodes of loose stool. Patient recently treated with antibiotics for pneumonia then developed loose stool. Patient admitted for dehydration. Patient is negative C. difficile. Patient treated with IV fluids and admitted to the [facility] unit for further medical management PT consult placed PMHX: Hypomagnesemia (Chronic) Diarrhea in adult patient (Acute) Acute dehydration (Acute) Head injury (Acute) Shoulder pain (Acute) Leg pain (Acute) Abrasion (Acute) Epistaxis (Acute) H/O colonoscopy (Chronic ~10/2019) incomplete colonoscopy. repeat in 1 year or schedule barium enema. Medical History Normal colonoscopy (~10/2020) 2020- done at the [place]. Negative exam. Repeat in 7-10 years. Personal history of malignant neoplasm of breast Other asthma Obstructive sleep apnea Morbid obesity due to excess calories Lichen sclerosus et atrophicus Hypothyroidism Adenomatous polyp (~06/2015) Asthma Cataract Gastroesophageal reflux disease Plantar fasciitis Incontinence mixedHyperlipidemia Malignant neoplasm of female breast Diabetes mellitus, type 2 Essential hypertension Surgical History S/P colonoscopy 2015- Tubular adenomaportacath insertion and removal for chemoBreast, Lumpectomy R breast quadrectomy Social History/Home Situation: Patient resides alone in the home with ramp to enter. Patient ambulates with four-wheel walker. Currently sleeps in a lift chair/recliner as she is unable to get in and out of bed. Patient is assist for dressing and showering. She has a home health aide 3 times a week. Equipment Owned/DME: Four-wheel walker lift chair/recliner Subjective: Patient reports she is unable to get her legs in and out of bed and has been sleeping in a lift chair which resulted in wound to her buttocks/coccyx area. She states her right hip is [id number] and her left hip has moderate arthritis. Objective: [] General Observation: [] Female semireclined in bed requesting to use the bathroom. IV fluids infusing left upper extremity Mental Status:, Agreeable to participate in evaluation Alert and oriented x 4, cooperative, able to follow instructions Pain: Right hip with movement 6/10 ROM: [] BUE: WFL Right Lower Extremity: Hip flexion to 60 degrees, abduction 10 degrees internal rotation to neutral knee and ankle within normal limits Left Lower Extremity: Hip flexion to 80 degrees abduction 15 degrees internal rotation to neutral knee and ankle within normal limits Strength: [] BUE: Grossly 4/5 Right Lower Extremity: Hip flexion 2-/5, abduction 2 -/5 adduction 2 -/5 internal rotation 2/5 knee and ankle 3+/5 Left Lower Extremity: Hip flexion 3 -/5 abduction 3 -/5 adduction 2/5 internal rotation 2/5 knee and ankle 3+/5 Sensation: Intact Bed Mobility/Transfers: [] Supine to sit mod assist of 1 bilateral lower extremities need to be moved at the same time to the edge of bed then assistance at trunk Sit to stand min assist due to impaired hip flexion Stand to sit at elevated seat height of 22 inches contact-guard assist with increased time patient demonstrates poor hip flexion Bed to chair contact-guard assist with FWW from elevated bed height of 25 inches Gait: Ambulate with FWW contact-guard assist 15 feet demonstrating poor right foot clearance impaired knee flexion, decreased left foot clearance step height, increased weightbearing through bilateral upper extremities Balance: [] Static Sitting: Fair with bilateral upper extremity support Dynamic Sitting: Fair minus Static Standing: Fair with bilateral upper extremity support Dynamic Standing: Fair minus with upper extremity support Special Tests: [] Mobility Limitations Standardized Measure [] [facility] In[facility] Short Form: [] Raw Score: 12 CMS Score: 68.66% Informed Consent/Education: Patient instructed in purpose [place] [address] therapeutic activity Sit to/from stand from 22 inch height contact-guard assist x 3 trials Surface to surface transfer with FWW contact-guard assist Ambulated 15 feet with FWW contact-guard assist patient limited by pain in right hip decreased knee flexion poor foot clearance on right decreased step height bilaterally Assessment: Evelia presents with significant limitation in bilateral hip flexion resulting in difficulty performing sit to stand transfers safely from surfaces less than 22 inches high. Patient has difficulty achieving anterior weight shift and prep for sit to stand/stand to sit. As patient lowers to seated position patient falls backwards due to pain bilateral hips with increasing hip flexion. Patient is a 74-year-old female who presents with clinical signs and symptoms consistent with current/admitting diagnoses that have resulted to mobility limitations, gait instability, generalized weakness, and impairment of motor c ontrol as demonstrated by the following impairment level findings: 1. Decreased strength to BLE major muscle groups right greater than left 2. Impaired standing balance 3. Limitation of joint range of motion in B hips right greater than left 4. Pain bilateral hips right greater than left, back 5. Impaired functional activity tolerance 6. Impaired skin integrity/pressure ulcer to coccyx/sacrum Impairments are contributing to the following functional limitations: 1. Inability to safely ambulate without assistive device 2. Increase completion time for mobility ADL performance 3. Increased fall risk 4. AM-PAC score indicating high risk for readmission with return to community Due to above-stated deficits and impairments patient would benefit from short- term rehab/SNF to increase ability to get in and out of bed, increase strength range of motion bilateral hips reduce pain and maximize level of independence with use of four-wheel walker. By enabling patient to return to bed she will be able to provide pressure relief to her coccyx/sacrum improving skin integrity and promoting wound healing. Patient is assessed as a low complexity based on the following: History: 74-year-old female with impairment level findings, functional limitations, and past medical history as indicated above Examination: Demonstrable impairment in strength, balance, and mobility level with underlying impairments and functional limitations as documented above Presentation: [] Stable Decision Making: Low Goals: 1. Min assist bed mobility 2. SBA transfers from 22 inch height 3. Min assist transfer from surfaces less than 22 inches 4. Ambulate with FWW 50 feet CGA with wheelchair follow demonstrating right foot clearance Plan of Care/Treatment Plan: 1-2x/day, 7 days/week x 1 week. Plan of care has been reviewed with the [employer] providing the service under Physical Therapy direction. Initiate Physical Therapy intervention for strengthening, bed mobility, transfers, gait, stairs, balance training, use of assistive device. DISCHARGE RECOMMENDATIONS: Short-term SNF To progress with strengthening functional transfers and bed mobility patient's goal is to return to sleeping in her bed at home TREATMENT CODE/TIME: 95893, [id number] Thank you for the opportunity to participate in the care of this patient. Radha Mccabe, PT [facility]
--- NOTE | 2024-12-22 13:56 | PHA.REVIEW2 ---
Pharmacy Admission Review Admission Clinical Review Admission Pharmacy Review: Diarrhea in adult patient (Acute) Acute dehydration (Acute) JAMARCUS Inhibitors Allergy (Unknown, Verified 09/02/24 07:25) noted on referral note, no reaction given sulfamethoxazole Allergy (Unknown, Verified 09/02/24 07:25) Nausea trimethoprim (From Septra) Allergy (Unknown, Verified 09/02/24 07:25) on referral, no reaction noted lisinopril Allergy (Unverified 09/02/24 07:25) RASH Penicillins Allergy (Unverified 09/02/24 07:25) RASH Resuscitation Status Full Code Height 5 ft 7 in Weight 95.4 kg Pharmacy Admission Review Renal Dosing Renal Dosing: BUN 15 mg/dL (7-18) 12/22/24 06:10 Creatinine 0.6 mg/dL (0.55-1.02) 12/22/24 06:10 Medications needing adjustments: Reviewed (CrCl 56.75 mL/min) List of meds needing interventions: Current medications are okay Anticoagulation Anticoagulation: Hgb 11.4 g/dL (11.2-15.7) 12/22/24 06:10 Hct 35.5 % (36.0-46.0) L 12/22/24 06:10 Plt Count 207 10^3/uL (130-400) 12/22/24 06:10 Creatinine 0.6 mg/dL (0.55-1.02) 12/22/24 06:10 DVT Prophylaxis: Reviewed Medications: Enoxaparin (40mg daily) Relevant Labs Relevant Labs: Sodium 140 mmol/L (136-145) 12/22/24 06:10 Potassium 3.0 mmol/L (3.5-5.1) L 12/22/24 06:10 Chloride 105 mmol/L (98-107) 12/22/24 06:10 Magnesium 1.8 mg/dL (1.8-2.4) 12/22/24 06:10 Electrolytes, C-Reactive P, ESR: Reviewed (has order for potassium PO 40mEq TID) DM Control DM Control: Glucose 131 mg/dL (74-106) H 12/22/24 06:10 Finger Stick Blood Glucose 127 1208 Finger Stick Blood Glucose 127 1133 Finger Stick Blood Glucose 127 1133 Finger Stick Blood Glucose 113 0853 Finger Stick Blood Glucose 113 0827 Finger Stick Blood Glucose 113 0827 DM Control: Reviewed Insulin Dosing, Diabetic Medication: Has order for SS insulin Cardiac Review BP, HR, EF%: Reviewed (HR and BP WNL) List meds needing interventions: Has order for losartan 50mg daily QTc Review QTc: Reviewed (503 from 12/21/24) List meds needing interventions: Current medications are okay IV to PO Switch IV Medications: Reviewed Home Meds Home Med List reviewed: Reviewed Relevent Home Meds Not ordered & why?: HCTZ (on hold per H+P), metformin (on hold per H+P), calcium and refresh eye drops Current Meds Current Medication Order Review: Intervened Comments: Changed simvastatin order from daily to HS per pharmacy protocol
--- NOTE | 2024-12-22 14:42 | CHAPLAIN ---
Evelia was up in the chair when I visited. She said she'd just gotten up. She plans to go to a rehab to get stronger before returning to her home in [place]. 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 At home she gets around with a rollator so she said she is looking forward to getting stronger so she get get around using that and transferring in and out of bed. She offered a prayer for the two of us.
[2024-12-22] MEDS: Acetaminophen 325 MG TAB 650 MG PO (15:51)
[2024-12-22 16:15] VITALS: BP 109/65; PULSE 89; RESP 17; TEMP 37.1; O2SAT 95
[2024-12-22] MEDS: Lactated Ringers 1,000 ML 75 ML IV (16:33)
--- NOTE | 2024-12-22 19:48 | W.PC.ACHO ---
Registration Status: ADM IN Primary Language: Preferred Language: Romanian ED Information & Data Chief Complaint Abd Prob 12/21/24 17:33 Chief Complaint Abd Prob 12/21/24 17:15 Triage Note PT reports persistent 12/21/24 17:06 diarrhea for the last 48 hours along with episodes of abd pain. Medical / Surgical History (Last Reviewed 12/21/24 @ 20:45 by Akash Adamson) Normal colonoscopy (~10/2020) Personal history of malignant neoplasm of breast Other asthma Obstructive sleep apnea Morbid obesity due to excess calories Lichen sclerosus et atrophicus Hypothyroidism Adenomatous polyp (~06/2015) Asthma Cataract Gastroesophageal reflux disease Plantar fasciitis Incontinence Hyperlipidemia Malignant neoplasm of female breast Diabetes mellitus, type 2 Essential hypertension (Last Reviewed 12/21/24 @ 20:45 by Akash Adamson) S/P colonoscopy portacath Breast, Lumpectomy Most Recent Vital Signs Temperature 37.1 C 12/22/24 16:15 Temperature Source Temporal Artery Scan 12/22/24 16:15 Pulse 89 12/22/24 16:15 Pulse Rhythm Regular 12/21/24 22:05 Pulse Strength Normal 12/21/24 22:05 Pulse 110 H 12/21/24 20:01 Respiratory Rate 17 12/22/24 16:15 Respiratory Effort Normal 12/21/24 23:23 Respiratory Depth Normal 12/21/24 23:23 Respiratory Pattern Normal 12/21/24 23:23 Blood Pressure 109/65 12/22/24 16:15 Blood Pressure Mean 79 12/22/24 16:15 Blood Pressure Position Sitting 12/21/24 17:06 Pulse Oximetry 95 12/22/24 16:15 Oxygen Delivery Method Room Air 12/22/24 16:15 Oxygen Flow Rate 0 12/22/24 16:15 Fraction of Inspired Oxygen (FIO2) 21 12/22/24 00:05 Pain Level 0 12/22/24 16:15 Allergies JAMARCUS Inhibitors Allergy (Unknown, Verified 09/02/24 07:25) noted on referral note, no reaction given sulfamethoxazole Allergy (Unknown, Verified 09/02/24 07:25) Nausea trimethoprim (From Septra) Allergy (Unknown, Verified 09/02/24 07:25) on referral, no reaction noted lisinopril Allergy (Unverified 09/02/24 07:25) RASH Penicillins Allergy (Unverified 09/02/24 07:25) RASH Precautions Isolation Standard precaution 12/21/24 17:33 Active Medications Generic Name Dose Route Start Last Admin Trade Name Amaury PRN Reason Stop Dose Admin Acetaminophen 650 mg 12/21/24 23:22 12/22/24 15:51 Acetaminophen 325 Mg Tab PO 650 mg Q4H PRN PRN Administration Enoxaparin Sodium 40 mg 12/22/24 08:30 12/22/24 08:53 Enoxaparin 40 Mg/0.4 Ml Syr SC 40 mg DAILY EDMOND Administration Ringer's Solution 1,000 mls @ 75 mls/hr 12/21/24 20:45 12/22/24 16:33 IV 75 mls/hr INFUSION EDMOND Administration Insulin Aspart 0 units 12/22/24 08:00 12/22/24 16:51 Insulin Aspart 300 Units/3 Ml Pen SC Not Given 0800,1200,1700,2200 [facility] Protocol Iron/Minerals/Multivitamins 1 tab 12/22/24 08:30 12/22/24 08:53 Multivitamin W/Minerals Tab PO 1 tab QAM EDMOND Administration Losartan Potassium 50 mg 12/22/24 08:30 12/22/24 08:58 Losartan 25 Mg Tab PO Not Given DAILY EMDOND Mometasone Furoate 1 puff 12/22/24 08:30 12/22/24 08:32 Mometasone 220 Mcg 14 Dose Inhaler IH 1 puff BID EDMOND Administration Potassium Chloride 40 meq 12/22/24 14:00 12/22/24 13:51 Potassium Chloride 20 Meq Tabcr PO 12/23/24 08:31 40 meq TID EDMOND Administration Sodium Chloride 0 ml 12/22/24 08:30 12/22/24 08:55 Normal Saline Flush 10 Ml Syr IVP 10 ml BID EDMOND Administration Triamcinolone Acetonide 0 gm 12/22/24 08:30 12/22/24 10:51 Triamcinolone 0.025% Cr 15 Gm Tube TP 2 applic BID EDMOND Administration IV IV Catheter Type [Left Peripheral IV Antecubital] IV Catheter Gauge [Left 20 Antecubital] Diagnostics 12/22/24 12/22/24 12/21/24 Range/Units 06:10 02:58 22:45 WBC 4.11 L (4.4-10.8) 10^3/uL RBC 4.12 (3.93-5.22) 10^6/uL Hgb 11.4 (11.2-15.7) g/dL Hct 35.5 L (36.0-46.0) % MCV 86 (80-95) fL MCH 27.7 (27.0-33.0) pg MCHC 32.1 (32.0-36.0) % RDW 13.7 (11.7-14.6) % Plt Count 207 (130-400) 10^3/uL MPV 10.0 (8.0-11.0) fL VBG Lactate (<or=2.0) mmol/L Sodium 140 (136-145) mmol/L Potassium 3.0 L (3.5-5.1) mmol/L Chloride 105 (98-107) mmol/L Carbon Dioxide 25.9 (21.0-32.0) mmol/L Anion Gap 9.1 (3-11) mmol/L BUN 15 (7-18) mg/dL Creatinine 0.6 (0.55-1.02) mg/dL Est GFR (CKD-EPI 2020) 92.97 (mL/min/1.73m2) Glucose 131 H (74-106) mg/dL Calcium 8.0 L (8.5-10.1) mg/dL Magnesium 1.8 (1.8-2.4) mg/dL Total Bilirubin 0.5 (0.2-1.0) mg/dL AST 11 L (15-37) U/L ALT 9 L (14-59) U/L Alkaline Phosphatase 51 (46-116) U/L Total Protein 5.7 L (6.4-8.2) g/dL Albumin 2.7 L (3.4-5.0) g/dL TSH 0.35 L (0.36-3.74) uIU/mL Free T4 1.29 (0.76-1.46) ng/dL Urine Color Yellow (Yellow) Urine Clarity Clear (Clear) Urine pH 6.0 (5-8) Ur Specific [place] 1.010 (1.005-1.025) Urine Protein Negative (Neg-Trace) mg/dL Urine Ketones Negative (Negative) mg/dL Urine Blood Negative (Negative) Urine Nitrite Negative (Negative) Urine Bilirubin Negative (Negative) Urine Urobilinogen 0.2 (Up to 0.2) mg/dL Ur Leukocyte Esterase Negative (Negative) Urine Glucose Negative (Negative) mg/dL Stool Campylobacter PCR Stl C.difficile Tox PCR (Negative) Stool Salmonella PCR Stool Shigella PCR COVID-19 Source Nasopharynx SARS-CoV-2 (PCR) Negative (Negative) Influenza Type A (PCR) Negative (Negative) Influenza Type B (PCR) Negative (Negative) RSV (PCR) Negative (Negative) Shiga Toxin (PCR) 12/21/24 12/21/24 Range/Units 20:24 20:09 WBC (4.4-10.8) 10^3/uL RBC (3.93-5.22) 10^6/uL Hgb (11.2-15.7) g/dL Hct (36.0-46.0) % MCV (80-95) fL MCH (27.0-33.0) pg MCHC (32.0-36.0) % RDW (11.7-14.6) % Plt Count (130-400) 10^3/uL MPV (8.0-11.0) fL VBG Lactate 1.8 (<or=2.0) mmol/L Sodium (136-145) mmol/L Potassium (3.5-5.1) mmol/L Chloride (98-107) mmol/L Carbon Dioxide (21.0-32.0) mmol/L Anion Gap (3-11) mmol/L BUN (7-18) mg/dL Creatinine (0.55-1.02) mg/dL Est GFR (CKD-EPI 2020) (mL/min/1.73m2) Glucose (74-106) mg/dL Calcium (8.5-10.1) mg/dL Magnesium (1.8-2.4) mg/dL Total Bilirubin (0.2-1.0) mg/dL AST (15-37) U/L ALT (14-59) U/L Alkaline Phosphatase (46-116) U/L Total Protein (6.4-8.2) g/dL Albumin (3.4-5.0) g/dL TSH (0.36-3.74) uIU/mL Free T4 (0.76-1.46) ng/dL Urine Color (Yellow) Urine Clarity (Clear) Urine pH (5-8) Ur Specific [place] (1.005-1.025) Urine Protein (Neg-Trace) mg/dL Urine Ketones (Negative) mg/dL Urine Blood (Negative) Urine Nitrite (Negative) Urine Bilirubin (Negative) Urine Urobilinogen (Up to 0.2) mg/dL Ur Leukocyte Esterase (Negative) Urine Glucose (Negative) mg/dL Stool Campylobacter PCR Pending Stl C.difficile Tox PCR Negative (Negative) Stool Salmonella PCR Pending Stool Shigella PCR Pending COVID-19 Source SARS-CoV-2 (PCR) (Negative) Influenza Type A (PCR) (Negative) Influenza Type B (PCR) (Negative) RSV (PCR) (Negative) Shiga Toxin (PCR) Pending [id number] Documentation Fingerstick Glucose Start: 12/21/24 23:22 Freq: AC & HS Status: Active Protocol: Activity Type Activity Date Activity User E-sign Co-sign Detail Recorded Client Recorded Date Recorded By Document 12/22/24 16:46 BKG DAEMON(3) [id number] 12/22/24 16:47 BKG DAEMON(4) Intake and Output - 24 Hour Total 12/21/24 16:50 thru 12/22/24 13:05 Intake Total 3687.5 Output Total 450 Balance 3237.5 Weight 95.4 kg Intake: IV 3447.5 Oral 240 Output: Urine 450 Other: Urine Color Yellow Urine Appearance Clear Comment unmeasured Falls Risk Assessment History of Falls No History 12/21/24 23:23 Contributing Factors Incontinence 12/21/24 23:23 Ambulatory Aids Uses ambulatory device 12/21/24 23:23 Tubes/Lines W/no contributing factors 12/21/24 23:23 Gait Evaluation W/no contributing factors 12/21/24 23:23 Cognition No cognitive impairment 12/21/24 17:33 Fall Total Score 38 12/21/24 23:23 Level of Risk Moderate Risk 12/21/24 23:23 Problems (Last Reviewed 12/21/24 @ 20:45 by Akash Adamson) Weakness (Acute) Pressure ulcer (Acute) Advanced care planning/counseling discussion (Acute) Palliative care patient (Acute) Hypomagnesemia (Chronic) Diarrhea in adult patient (Acute) Acute dehydration (Acute) v v v v v v v v v Sending and/or Receiving Nurses: Please use comment section below to note any information pertinent to the patient hand-off not included above. Information / Comments: A&O X4, diarrhea started yesterday 12/21/24, on RA, VS stable, ABD CT WDL, LR bolus given, 1-2 person assist with walker Report received from: Risa MCGEE
[2024-12-22] MEDS: Nystatin POWDER 60 GM JAR TP (20:10)
[2024-12-22 20:50] VITALS: BP 92/53; PULSE 85; RESP 16; TEMP 36.4; O2SAT 94
[2024-12-22 23:31] LABS: Campylobacter PCR Negative (Negative); Shiga Toxin PCR Negative (Negative); Shigella/Enteroinvasive Ecoli Negative (Negative)
[2024-12-22 23:48] VITALS: BP 130/61; PULSE 85; RESP 15; TEMP 36.6; O2SAT 97
[2024-12-23] MEDS: Mometasone 220 MCG 14 DOSE INHALER 1 PUFF IH ×2 (02:35→19:45)
[2024-12-23 03:54] VITALS: BP 135/76; PULSE 67; RESP 16; TEMP 36.6; O2SAT 96
[2024-12-23] MEDS: Levothyroxine 88 MCG TAB PO (06:23)
[2024-12-23] MEDS: Lactated Ringers 1,000 ML 75 ML IV ×2 (06:24→19:46)
[2024-12-23 07:04] LABS: Magnesium 1.8 mg/dL (1.8-2.4)
[2024-12-23 07:05] LABS: BUN 11 mg/dL (7-18); CO2 24.6 mmol/L (21.0-32.0); Calcium 7.9 mg/dL (8.5-10.1); Estimated GFR 92.97 (mL/min/1.73m2); Glucose 123 mg/dL (74-106)
[2024-12-23 07:11] LABS: Anion Gap 7.4 mmol/L (3-11); Chloride 109 mmol/L (98-107); Sodium 141 mmol/L (136-145)
[2024-12-23 07:13] LABS: Potassium 4.4 mmol/L (3.5-5.1)
[2024-12-23 07:14] LABS: Hemoglobin A1C 6.3 % (<5.7)
[2024-12-23 07:48] VITALS: BP 119/59; PULSE 79; RESP 17; TEMP 36.5; O2SAT 96
[2024-12-23] MEDS: Enoxaparin 40 MG/0.4 ML SYR SC (09:39)
[2024-12-23] MEDS: Nystatin POWDER 60 GM JAR TP ×2 (09:39→19:45)
[2024-12-23] MEDS: Normal Saline Flush 10 ML SYR IVP ×2 (09:39→19:45)
[2024-12-23] MEDS: Multivitamin w/Minerals TAB 1 TAB PO (09:40)
[2024-12-23] MEDS: Loratidine 10 MG TAB PO (09:40)
[2024-12-23] MEDS: Losartan 25 MG TAB 50 MG PO (09:40)
--- NOTE | 2024-12-23 10:59 | PGE_ITS ---
Date of Service Date of service: 12/23/24 Time of Service: 11:00 Assessment and Plan Assessment and plan (1) Acute dehydration: Start date: 12/21/24 Status: Acute Assessment and plan: -Related to diarrhea after precent rolonged antibiotic course. -now resolved -PO intake back to baseline, IVFs discontinued AM 12/23 (2) Diarrhea in adult patient: Start date: 12/21/24 Status: Acute Assessment and plan: -Improving. -C-diff negative. -Fecal pathogens pending. -Now tolerating regular diet. (3) Hypomagnesemia: Status: Chronic Assessment and plan: -Repleted, now normal (4) Essential hypertension: Assessment and plan: -Holding HCTZ, BP still low normal, will restart as tolerated -continue losartan. (5) Diabetes mellitus, type 2: Assessment and plan: -Holding metformin after CT, can resume 12/24 (6) Hypothyroidism: Assessment and plan: -TSH low suggesting overcorrection, decrease dose from 100mcg to 88mcg (7) Obstructive sleep apnea: Assessment and plan: -Wears CPAP at home. Get here if possible (8) Pressure ulcer: Status: Acute Assessment and plan: -to coccyx. -Present on admission. -Wound consult pending, routine wound care. (9) Palliative care patient: Status: Acute Assessment and plan: -Appreciate palliative input, see note. (10) Weakness: Status: Acute Assessment and plan: -Acute on chronic general weakness, deconditioned. -PT rec CROW, referrals sent Subjective Subjective Interval history since last seen: Patient states that she is doing well today, and believes that she ate too much yesterday leading to some loose bowel movements. Otherwise she has no other complaints concerns at this time. Exam Narrative Exam Narrative: Well-appearing older female sitting up in the chair no acute distress, ANO x 4, heart regular rhythm, lungs good auscultation bilaterally, abdomen soft, nontender, nondistended Objective Last Vital Signs Temp 97.7 F 12/23/24 07:48 Pulse 79 12/23/24 07:48 Resp 17 12/23/24 07:48 BP 119/59 L 12/23/24 07:48 Pulse Ox 96 12/23/24 07:48 Laboratory Results - last 24 hr 12/23/24 05:55 Sodium 141 Potassium 4.4 D Chloride 109 H Carbon Dioxide 24.6 Anion Gap 7.4 BUN 11 Creatinine 0.6 Est GFR (CKD-EPI 2020) 92.97 Glucose 123 H Hemoglobin A1c 6.3 H Calcium 7.9 L Magnesium 1.8 Time Spent with Patient Time Spent with Patient: >50 minutes Time was spent: preparing to see the patient(eg.review tests), obtaining and/or reviewing separately otained hiistory, ordering medications,tests, procedures, referring, communicating with other health home care and home health aides teacher, indepentently interpreting results, counseling the patient and care coordination
[2024-12-23 11:22] VITALS: BP 122/78; PULSE 84; RESP 17; TEMP 36.7; O2SAT 97
--- NOTE | 2024-12-23 12:19 | PT.INTREAT ---
PT Notes Visit Reasons: Acute Dehydration with Diarrhea Inpatient Physical Therapy Treatment Note [facility] Date: 12/23/24 PRECAUTIONS:Fall precautions SUBJECTIVE: Pt states she just had a more solid BM. Agreeable to PT at this time. OBJECTIVE: ? PAIN: No reports of pain VITALS: monitored by nursing Therapeutic Activities (44646a2): Direct one-on-one instruction in dynamic activities to improve functional performance. ? BED MOBILITY/TRANSFERS? Sit-stand: CGA ? Stand-sit: CGA ? Bed-Chair: CGA ? Chair-bed: CGA GAIT? Assistive Device: RW ? Weight bearing: WBAT Assist: CGA ? Distance:? 75 ft ? Deviation: slow gait speed, increased UE support on RW ? Exercises performed: ? Ankle pumps, LAQs, quad sets x10 each ASSESSMENT:? Pt showed good progression with ambulation today. She continues to remain a good candidate for STR prior to going home due to her decreased gait speed and living alone. She required 3 standing breaks throughout ambulation showing poor endurance as well. She was provided with an HEP to allow her to gain strength independently and safely. She will continue to benefit from PT while in the hospital to help optimize her level of function. PLAN: Ambulation and HEP progressions TREATMENT CODE/TIME: Ther Act (80893) x1 - 20 min DISCHARGE RECOMMENDATION: STR for continued functional strengthening
[2024-12-23 15:25] VITALS: BP 109/71; PULSE 89; RESP 17; TEMP 36.5; O2SAT 95
[2024-12-23 19:38] VITALS: BP 128/81; PULSE 86; RESP 17; TEMP 36.7; O2SAT 98
[2024-12-23] MEDS: Simvastatin 40 MG TAB PO (19:45)
[2024-12-23 23:35] VITALS: BP 140/74; PULSE 93; RESP 16; TEMP 36.6; O2SAT 95
[2024-12-24] MEDS: Acetaminophen 325 MG TAB 650 MG PO ×2 (03:23→22:58)
[2024-12-24] MEDS: Refresh PLUS Eye Drops 0.4ml 1 EACH OU ×2 (03:26→20:19)
[2024-12-24 03:50] VITALS: PULSE 74; RESP 16; TEMP 36.6; O2SAT 96
[2024-12-24] MEDS: Levothyroxine 88 MCG TAB PO (06:19)
[2024-12-24 07:02] VITALS: BP 115/53; PULSE 78; RESP 18; TEMP 36.5; O2SAT 95
[2024-12-24 07:12] LABS: Magnesium 1.6 mg/dL (1.8-2.4)
[2024-12-24] MEDS: Losartan 25 MG TAB 50 MG PO (07:45)
[2024-12-24] MEDS: Multivitamin w/Minerals TAB 1 TAB PO (07:45)
[2024-12-24] MEDS: Normal Saline Flush 10 ML SYR IVP ×2 (07:45→20:24)
[2024-12-24] MEDS: Loratidine 10 MG TAB PO (07:45)
[2024-12-24] MEDS: Nystatin POWDER 60 GM JAR TP ×2 (07:48→20:19)
[2024-12-24] MEDS: Enoxaparin 40 MG/0.4 ML SYR SC (07:49)
[2024-12-24 10:47] VITALS: BP 117/71; PULSE 82; RESP 18; TEMP 36.8; O2SAT 96
--- NOTE | 2024-12-24 12:56 | PT.INTREAT ---
PT Notes Visit Reasons: Acute Dehydration with Diarrhea Inpatient Physical Therapy Treatment Note [facility] Date: 12/24/24 PRECAUTIONS: Fall precautions SUBJECTIVE: Pt states she is excited to work with PT. OBJECTIVE: ? VITALS: monitored by nursing Therapeutic Activities (90920m7): Direct one-on-one instruction in dynamic activities to improve functional performance. ? BED MOBILITY/TRANSFERS:? Sit-stand: CGA? Stand-sit: CGA ? Bed-Chair: CGA ? Chair-bed: CGA Ambulation: 100 ft w/CGA and use of RW - shortened stride length and decreased foot clearance observed EXERCISES: standing marching x10, standing calf raises x10, standing hip abduction x10 bilaterally -Provided skilled cues and instruction on performance and technique throughout. ASSESSMENT:? Pt is showing progressions but remains a fall risk as she demonstrates poor foot clearance during her gait cycle. She also is requiring verbal cues to stay safe during transfers. The recommendation continues to be STR prior to returning home to help optimize her functional levels and return home safely. PLAN: Continue ambulation progressions and progress exercises as tolerated TREATMENT CODE/TIME: Ther Act (40874) x1 - 15 min DISCHARGE RECOMMENDATION: STR
[2024-12-24 14:16] VITALS: BP 134/76; PULSE 84; RESP 16; TEMP 36.3; O2SAT 94
--- NOTE | 2024-12-24 16:35 | PGE_ITS ---
Date of Service Date of service: 12/24/24 Time of Service: 16:36 Assessment and Plan Assessment and plan (1) Acute dehydration: Start date: 12/21/24 Status: Acute Assessment and plan: -Related to diarrhea after precent rolonged antibiotic course. -now resolved -PO intake back to baseline, IVFs discontinued AM 12/23 - Patient awaiting placement at subacute rehab (2) Diarrhea in adult patient: Start date: 12/21/24 Status: Acute Assessment and plan: -Improving. -C-diff negative. -Fecal pathogens all negative -Now tolerating regular diet. (3) Hypomagnesemia: Status: Chronic Assessment and plan: -Repleted, now normal (4) Essential hypertension: Assessment and plan: -Holding HCTZ, BP still low normal, will restart as tolerated -continue losartan. (5) Diabetes mellitus, type 2: Assessment and plan: -Holding metformin after CT, can resume 12/24 (6) Hypothyroidism: Assessment and plan: -TSH low suggesting overcorrection, decrease dose from 100mcg to 88mcg (7) Obstructive sleep apnea: Assessment and plan: -Wears CPAP at home. Get here if possible (8) Pressure ulcer: Status: Acute Assessment and plan: -to coccyx. -Present on admission. -Wound consult pending, routine wound care. (9) Palliative care patient: Status: Acute Assessment and plan: -Appreciate palliative input, see note. (10) Weakness: Status: Acute Assessment and plan: -Acute on chronic general weakness, deconditioned. -PT rec CROW, referrals sent Subjective Subjective Interval history since last seen: Patient understands that she is medically cleared and is awaiting subacute rehab bed. She is very thankful and has no complaints or concerns at this time. Exam Narrative Exam Narrative: Well-appearing older female sitting up in the chair no acute distress, ANO x 4, heart regular rhythm, lungs good auscultation bilaterally, abdomen soft, nontender, nondistended Objective Last Vital Signs Temp 97.3 F L 12/24/24 14:16 Pulse 84 12/24/24 14:16 Resp 16 12/24/24 14:16 BP 134/76 12/24/24 14:16 Pulse Ox 94 12/24/24 14:16 Laboratory Results - last 24 hr 12/24/24 06:30 Magnesium 1.6 L Time Spent with Patient Time Spent with Patient: >50 minutes Time was spent: preparing to see the patient(eg.review tests), obtaining and/or reviewing separately otained hiistory, ordering medications,tests, procedures, referring, communicating with other health managed care specialist, indepentently interpreting results, counseling the patient and care coordination
[2024-12-24 19:31] VITALS: BP 139/81; PULSE 86; RESP 18; TEMP 36.8; O2SAT 94
[2024-12-24] MEDS: Mometasone 220 MCG 14 DOSE INHALER 2 PUFF IH (19:55)
[2024-12-24] MEDS: Simvastatin 40 MG TAB PO (20:19)
[2024-12-24 23:36] VITALS: BP 129/60; PULSE 81; RESP 19; TEMP 36.7; O2SAT 96
[2024-12-25] VITALS (7 sets, daily range): BP systolic 128–151; BP diastolic 71–90; PULSE 80–87; RESP 16–20; TEMP 36.5–36.9; O2SAT 92–97
[2024-12-25] MEDS: Levothyroxine 88 MCG TAB PO (06:00)
[2024-12-25] MEDS: Enoxaparin 40 MG/0.4 ML SYR SC (09:19)
[2024-12-25] MEDS: Multivitamin w/Minerals TAB 1 TAB PO (09:20)
[2024-12-25] MEDS: Normal Saline Flush 10 ML SYR IVP ×2 (09:20→19:59)
[2024-12-25] MEDS: Losartan 25 MG TAB 50 MG PO (09:20)
[2024-12-25] MEDS: Loratidine 10 MG TAB PO (09:20)
[2024-12-25] MEDS: Nystatin POWDER 60 GM JAR TP ×3 (09:21→19:57)
[2024-12-25] MEDS: Benzocaine/Menthol LOZG 15/BOX 1 EACH SUC (10:53)
--- NOTE | 2024-12-25 12:11 | CMPROGNOTE_ITS ---
Date of service: 12/25/24 Time of Service: 12:12 Care Management Progress Note Progress Note Text Progress Note Text: Evelia was sitting up in the chair when CM met with her. She was pleasant and willing to engage in conversation. Evelia was accepted to [facility]; Patient aware and happily accepts this bed offer. Anticipate she will discharge there tomorrow pending [facility] contact. Evelia shares she had a Reiki session this morning which she describes as amazing. CM will continue to follow. Discharge Potential Discharge Needs: Other (SNF) Anticipated Barriers to Discharge: Other ([facility] contract) Patient/Family Education Needs: Review discharge instructions, discuss [facility] Transportation: [facility] Transportation: Wheel chair van Plan: PT recommends SNF for STR, patient is agreeable; Bed offer at [facility] pending [facility] Contract vs Medicare payment, patient happily accepts the bed. Wound consults are pending. It is recommended Evelia will follow up with [facility] and community providers s/p STR and continue per her discharge plan of care. Transportation recommendation is wheelchair; Evelia will be transported via [facility]. CM will follow. Social Determinants of Health Screening Social Determinants of health last assessed in clinic: 12/25/24 Will the Patient Participate in the Screening?: Yes Do you worry about having a steady place to live?: no Problems where you live: no known problems In the past 12 months, have you had to go without electric, gas, oil or water in your home?: no 1. Within the past 12 months, we worried whether our food would run out before we got money to buy more.: Don't know/refused 2. Within the past 12 months, the food we bought just didn't last and we didn't have money to get more.: Don't know/refused Has lack of transportation kept you from medical appointments or from doing things needed for daily living?: no Has anyone in your life made you feel unsafe or unsupported?: no How hard is it for you to pay for the very basics like food, housing, medical care, and heating? Would you say it is:: Not hard at all Do you want help finding or keeping work or a job?: I do not need or want help If for any reason you need help with day-to-day activities such as bathing, preparing meals, shopping, managing finances, etc., do you get the help you need?: I don?t need any help How often do you feel lonely or isolated from those around you?: Never Do you speak a language other than Yi at home?: No Does the patient want assistance with any of the above?: No
--- NOTE | 2024-12-25 14:59 | PGE_ITS ---
Date of Service Date of service: 12/25/24 Time of Service: 14:59 Assessment and Plan Assessment and plan (1) Acute dehydration: Start date: 12/21/24 Status: Acute Assessment and plan: -Related to diarrhea after precent rolonged antibiotic course. -now resolved -PO intake back to baseline, IVFs discontinued AM 12/23 - Patient awaiting placement at subacute rehab (2) Diarrhea in adult patient: Start date: 12/21/24 Status: Acute Assessment and plan: -Improving. -C-diff negative. -Fecal pathogens all negative -Now tolerating regular diet. (3) Hypomagnesemia: Status: Chronic Assessment and plan: -Repleted, now normal (4) Essential hypertension: Assessment and plan: -Holding HCTZ, BP still low normal, will restart as tolerated -continue losartan. (5) Diabetes mellitus, type 2: Assessment and plan: -Holding metformin after CT, can resume 12/24 (6) Hypothyroidism: Assessment and plan: -TSH low suggesting overcorrection, decrease dose from 100mcg to 88mcg (7) Obstructive sleep apnea: Assessment and plan: -Wears CPAP at home. Get here if possible (8) Pressure ulcer: Status: Acute Assessment and plan: -to coccyx. -Present on admission. -Wound consult pending, routine wound care. (9) Palliative care patient: Status: Acute Assessment and plan: -Appreciate palliative input, see note. (10) Weakness: Status: Acute Assessment and plan: -Acute on chronic general weakness, deconditioned. -PT rec CROW, referrals sent Subjective Subjective Interval history since last seen: Patient states that she is feeling well today and has no complaints concerns at this time. Exam Narrative Exam Narrative: Well-appearing older female sitting up in the chair no acute distress, ANO x 4, heart regular rhythm, lungs good auscultation bilaterally, abdomen soft, nontender, nondistended Objective Last Vital Signs Temp 98.4 F 12/25/24 11:15 Pulse 86 12/25/24 11:15 Resp 17 12/25/24 11:15 BP 149/79 H 12/25/24 11:15 Pulse Ox 95 12/25/24 11:15 Time Spent with Patient Time Spent with Patient: >50 minutes Time was spent: preparing to see the patient(eg.review tests), obtaining and/or reviewing separately otained hiistory, ordering medications,tests, procedures, referring, communicating with other health acute care clinical nurse specialist, indepentently interpreting results, counseling the patient and care coordination
[2024-12-25] MEDS: Simvastatin 40 MG TAB PO (19:58)
[2024-12-25] MEDS: Refresh PLUS Eye Drops 0.4ml 1 EACH OU (19:58)
[2024-12-25] MEDS: Mometasone 220 MCG 14 DOSE INHALER 2 PUFF IH (20:15)
[2024-12-26] MEDS: Levothyroxine 88 MCG TAB PO (05:30)
[2024-12-26 07:09] VITALS: BP 137/75; PULSE 77; RESP 17; TEMP 37.4; O2SAT 93
[2024-12-26] MEDS: Loratidine 10 MG TAB PO (08:43)
[2024-12-26] MEDS: Nystatin POWDER 60 GM JAR TP ×3 (08:43→20:05)
[2024-12-26] MEDS: Multivitamin w/Minerals TAB 1 TAB PO (08:43)
[2024-12-26] MEDS: Enoxaparin 40 MG/0.4 ML SYR SC (08:43)
[2024-12-26] MEDS: Losartan 25 MG TAB 50 MG PO (08:43)
[2024-12-26] MEDS: Normal Saline Flush 10 ML SYR IVP ×2 (08:44→20:05)
--- NOTE | 2024-12-26 08:56 | PT.INTREAT ---
Date of service: 12/25/24 Time of Service: 11:30 PT Notes Visit Reasons: Acute Dehydration with Diarrhea Date: 12/26/2024 PRECAUTIONS: Fall, standard, Activity as tolerated. SUBJECTIVE: pt in recliner when approached for therapy this morning, pt reports she just received a reiki session and is still trying to relax from it, would like to participate after an hour. OBJECTIVE: ? PAIN: Buttock pain from ulcers? VITALS: Monitored by nursing Therapeutic Activities 75779: Direct one-on-one instruction in dynamic activities to improve functional performance. ?? BED MOBILITY/TRANSFERS? Rolling L/R: CGA Supine-sit: ? CGA? Sit-supine: ? CGA? Sit-stand: ? CGA ? Stand-sit: ??CGA ? Bed-Chair:? ?CGA ? Chair-bed: CGA Provided skilled cues and instruction on performance and technique throughout. Gait Training 25319: Direct one-on-one instruction and skilled instruction in: Employing an assistive device Modified weight-bearing status Movement sequencing Turning and movement with proper form Provided verbal cues for equipment management and technique Provided instruction in gait pattern Patient education regarding pacing and breathing techniques to maximize activity tolerance? GAIT? Assistive Device: ?? ?FWW ? Weight bearing: FWB Assist: ?CGA ? Distance:?? ?100'x2 seated rest break in between distance ? Deviation: ? Slow brian, low step height, stoop forward posture.? Therapeutic Exercises 72390: Direct one-on-one instruction in therapeutic exercises to develop strength, endurance, range of motion and flexibility. Exercises: ? ? Sit to stand from standard chair 5x1set min A Sit to stand from recliner 5x1set SBA ? Seated High march [id number] Seated LAQ [id number] Seated SAQ [id number] Seated resisted hip abduction with yellow theraband [id number]? ? Seated resisted hip adduction with yellow theraband [id number] Long sitting SLR [id number] Seated ankle pumps [id number] ? Provided skilled instruction in proper exercise performance Provided skilled manual cues to facilitate proper muscle recruitment and/or form: ASSESSMENT:?Pt tolerated activity well, reports buttock pain decreased post session. PLAN: Continue with balance training, global strengthening and general conditioning for improved safety, mobility and activity tolerance until pt is ready for DC. TREATMENT CODE/TIME: [id number], [id number] 25mins (11:30-11:55am)
--- NOTE | 2024-12-26 10:44 | PT.INTREAT ---
PT Notes Visit Reasons: Acute Dehydration with Diarrhea Date: 12/26/2024 a.m. session PRECAUTIONS: Fall, standard, Activity as tolerated. SUBJECTIVE: Patient reports she had a sarah session with the music volunteer prior to this PT approaching., agreed to participating with therapy session. OBJECTIVE: Patient presented reclined in chair ? PAIN: buttock area VITALS: Closely monitored by nursing Therapeutic Activities 37968: Direct one-on-one instruction in dynamic activities to improve functional performance. ?? BED MOBILITY/TRANSFERS? Rolling L/R: Mod assist Supine-sit: Mod assist for lower extremities ? Sit-supine: Max assist for lower extremities? Sit-stand: ? SBA? Stand-sit: ??SBA ? Bed-Chair:? SBA with FWW both elevated surfaces greater than 21 inches? Chair-bed: SBA with FWW both elevated surfaces greater than 21 inches Provided skilled cues and instruction on performance and technique throughout. ? Facilitated safe and correct performance of level surface ambulation covering a distance of 150 feet using front wheeled walker with contact-guard assist and wheelchair follow for safety. Did not report of any increased pain. Denied headache, chest pain, and lightheadedness throughout activity. Minimal verbal cueing provided for AD management, directional changes, and posture. ? Facilitated safe and correct performance of level surface ambulation covering a distance of 150 feet using 4 wheeled walker with contact-guard assist and wheelchair follow for safety. Did not report of any increased pain. Denied headache, chest pain, and lightheadedness throughout activity. Minimal verbal cueing provided for AD management, directional changes, and posture. ? Deviation: ?stoop forward posture low step height, short step length, circumduction right lower extremity to advance ? Therapeutic Exercises 84945: Direct one-on-one instruction in therapeutic exercises to develop strength, endurance, range of motion and flexibility. Exercises Sit to stand 71j4sot from 20 inch height utilizing bilateral upper extremities 1 Seated LAQ 21f9akc Standing heel raises 70s5mjg Standing toe raises 32m0jlf ? Provided skilled instruction in proper exercise performance Provided skilled manual cues to facilitate proper muscle recruitment and/or form: ASSESSMENT:?Patient demonstrates improvement in ability to rise from surfaces less than 20 inches with increased time and cueing needed to bend knees and lean forward to push self to stand. Patient continues with tendency to lower herself to chair with bilateral upper extremities then falls back into hip extension instead of staying with trunk forward. This places her at increased risk for falls. Patient tolerated progression to 4 wheeled walker which she has at home however noted increased fatigue in bilateral upper extremities. Patient also noted that she was kicking the walker with her right foot due to narrowness of four-wheel walker. Patient continues to require significant assistance for lower extremities in and out of bed. Patient requires encouragement to perform pressure relief when seated in chair. PLAN: Continue with balance training, global strengthening and general conditioning for improved safety, mobility and activity tolerance until pt is ready for DC. Treatment codes: 42952, [id number]/1016?[id number]
[2024-12-26 11:02] VITALS: BP 144/91; PULSE 82; RESP 17; TEMP 36.8; O2SAT 93
--- NOTE | 2024-12-26 12:34 | CMPROGNOTE_ITS ---
Date of service: 12/26/24 Time of Service: 12:34 Care Management Progress Note Progress Note Text Progress Note Text: Evelia was sitting in a recliner when CM met with her. She is pleasant and easily engaged in conversation. She remains agreeable to discharge to [facility] for STR, prior to returning home where she plans to have a resumption of her VA, community and caregiver supports. CM has been in contact with the [facility] to clarify coverage for STR, and confirmed two potential billing options: 1. Under Medicare and ([facility]) 2. Through her VA benefit (100% connection). CM notified [facility] and they will proceed with billing under her medicare/tric are MCR. [facility] plans to admit her tomorrow, pending PA and bed availability. CM will continue to follow. Discharge Potential Discharge Needs: PCP F/U Appt and Other (MD) Anticipated Barriers to Discharge: None Identified Patient/Family Education Needs: Review discharge instructions, discuss Ask Me Three Transportation: [facility] Transportation: Wheel chair van Plan: PT recommends SNF for STR, patient is agreeable; Bed offer at [facility] pending VA Contract vs Medicare payment, patient happily accepts the bed. Wound consults are pending. It is recommended Evelia will follow up with VA and community providers s/p STR and continue per her discharge plan of care. Transportation recommendation is wheelchair; Evelia will be transported via [facility]. CM will follow. Social Determinants of Health Screening Social Determinants of health last assessed in clinic: 12/27/24 Will the Patient Participate in the Screening?: Yes Do you worry about having a steady place to live?: no Problems where you live: no known problems In the past 12 months, have you had to go without electric, gas, oil or water in your home?: no 1. Within the past 12 months, we worried whether our food would run out before we got money to buy more.: Never true 2. Within the past 12 months, the food we bought just didn't last and we didn't have money to get more.: Never true Has lack of transportation kept you from medical appointments or from doing things needed for daily living?: no Has anyone in your life made you feel unsafe or unsupported?: no How hard is it for you to pay for the very basics like food, housing, medical care, and heating? Would you say it is:: Not hard at all Do you want help finding or keeping work or a job?: I do not need or want help If for any reason you need help with day-to-day activities such as bathing, preparing meals, shopping, managing finances, etc., do you get the help you need?: I don?t need any help How often do you feel lonely or isolated from those around you?: Never Do you speak a language other than [place] at home?: No Does the patient want assistance with any of the above?: No
--- NOTE | 2024-12-26 13:56 | CHAPLAIN ---
Evelia was sitting up in the chair when I visited. She easily engaged in conversation telling me about her moravian upbringing. She has attended Congregation churches, as well as [employer] and [employer]. Currently she attends online as she doesn't leave her house much. She talked about the different aspects of each juan community that are important to her. She is a and gets a lot of her care through the [facility]. Juan said she'll be discharged to the [facility] from here.
[2024-12-26 15:04] VITALS: BP 115/68; PULSE 89; RESP 17; TEMP 37; O2SAT 93
--- NOTE | 2024-12-26 15:29 | PT.INTREAT ---
PT Notes Visit Reasons: Acute Dehydration with Diarrhea Date: 12/26/2024 PRECAUTIONS: Fall, standard, Activity as tolerated. SUBJECTIVE: Pt in recliner when approached for therapy this afternoon, agreed to participating with therapy session. OBJECTIVE: ? PAIN: buttock area VITALS: Closely monitored by nursing Therapeutic Activities 04256: Direct one-on-one instruction in dynamic activities to improve functional performance. ?? BED MOBILITY/TRANSFERS? Rolling L/R: supervision Supine-sit: ?SBA ? Sit-supine: SBA ? Sit-stand: ? SBA? Stand-sit: ??SBA ? Bed-Chair:? SBA? Chair-bed: SBA Provided skilled cues and instruction on performance and technique throughout. Gait Training 68706: Direct one-on-one instruction and skilled instruction in: Employing an assistive device Modified weight-bearing status Movement sequencing Turning and movement with proper form Provided verbal cues for equipment management and technique Provided instruction in gait pattern Patient education regarding pacing and breathing techniques to maximize activity tolerance? GAIT? Assistive Device: ?? ?FWW ? Weight bearing: FWB Assist: ? SBA ? Distance:?? 150'x2 seated rest break in between ? Deviation: ?stoop forward posture low step height, short step lenght ? Therapeutic Exercises 69886: Direct one-on-one instruction in therapeutic exercises to develop strength, endurance, range of motion and flexibility. Exercises Sit to stand 50w3iuv Seated LAQ 57o6spr Seated SAQ 07e8njd Standing NBOS without UE support 1min Standing high march 85z6wnz Standing hip [address] way 93b5imr Standing hip circles CW/CCW 25b2tcu Standing partial squats 86o4npy Standing heel raises 72c9wom Standing toe raises 35u8jmv ? Provided skilled instruction in proper exercise performance Provided skilled manual cues to facilitate proper muscle recruitment and/or form: ASSESSMENT:?Pt approached twice this afternoon, pt tolerated both session well, pt stayed in recliner after therapy session to stay seated for dinner. PLAN: Continue with balance training, global strengthening and general conditioning for improved safety, mobility and activity tolerance until pt is ready for DC.
[2024-12-26] MEDS: Benzocaine/Menthol LOZG 15/BOX 1 EACH SUC (18:20)
[2024-12-26 19:35] VITALS: BP 128/65; PULSE 91; RESP 20; TEMP 36.8; O2SAT 96
[2024-12-26] MEDS: Mometasone 220 MCG 14 DOSE INHALER 2 PUFF IH (20:00)
[2024-12-26] MEDS: Simvastatin 40 MG TAB PO (20:04)
[2024-12-26] MEDS: Refresh PLUS Eye Drops 0.4ml 1 EACH OU (20:05)
[2024-12-27 00:06] VITALS: BP 157/81; PULSE 99; RESP 20; TEMP 36.6; O2SAT 95
[2024-12-27] MEDS: Acetaminophen 325 MG TAB 650 MG PO (00:58)
--- NOTE | 2024-12-27 07:00 | W.PM.PROGNOT ---
Date of Service Date of service: 12/26/24 Time of Service: 15:34 Assessment and Plan Assessment and plan (1) Acute dehydration: Start date: 12/21/24 Status: Acute Assessment and plan: -Related to diarrhea after precent rolonged antibiotic course. -now resolved -PO intake back to baseline, IVFs discontinued AM 12/23 - Patient awaiting placement at subacute rehab (2) Diarrhea in adult patient: Start date: 12/21/24 Status: Acute Assessment and plan: -Improving. -C-diff negative. -Fecal pathogens all negative -Now tolerating regular diet. (3) Hypomagnesemia: Status: Chronic Assessment and plan: -Repleted, now normal (4) Essential hypertension: Assessment and plan: -Holding HCTZ, BP still low normal, will restart as tolerated -continue losartan. (5) Diabetes mellitus, type 2: Assessment and plan: -Holding metformin after CT, can resume 12/24 (6) Hypothyroidism: Assessment and plan: -TSH low suggesting overcorrection, decrease dose from 100mcg to 88mcg (7) Obstructive sleep apnea: Assessment and plan: -Wears CPAP at home. Get here if possible (8) Pressure ulcer: Status: Acute Assessment and plan: -to coccyx. -Present on admission. -Wound consult pending, routine wound care. (9) Palliative care patient: Status: Acute Assessment and plan: -Appreciate palliative input, see note. (10) Weakness: Status: Acute Assessment and plan: -Acute on chronic general weakness, deconditioned. -PT rec [facility], referrals sent Subjective Subjective Interval history since last seen: Patient states that she is feeling well today and has no complaints concerns at this time. Exam Narrative Exam Narrative: Well-appearing older female sitting up in the chair no acute distress, ANO x 4, heart regular rhythm, lungs good auscultation bilaterally, abdomen soft, nontender, nondistended Objective Last Vital Signs Temp 97.9 F 12/27/24 00:06 Pulse 99 H 12/27/24 00:06 Resp 20 12/27/24 00:06 BP 157/81 H 12/27/24 00:06 Pulse Ox 95 12/27/24 00:06 Time Spent with Patient Time Spent with Patient: >50 minutes Time was spent: preparing to see the patient(eg.review tests), obtaining and/or reviewing separately otained hiistory, ordering medications,tests, procedures, referring, communicating with other health healthcare advisory services manager, indepentently interpreting results, counseling the patient and care coordination
[2024-12-27 07:25] VITALS: BP 128/66; PULSE 84; RESP 17; TEMP 36.7; O2SAT 95
[2024-12-27] MEDS: Levothyroxine 88 MCG TAB PO (07:33)
[2024-12-27] MEDS: Enoxaparin 40 MG/0.4 ML SYR SC (08:18)
[2024-12-27] MEDS: Normal Saline Flush 10 ML SYR IVP (08:18)
[2024-12-27] MEDS: Loratidine 10 MG TAB PO (08:19)
[2024-12-27] MEDS: Nystatin POWDER 60 GM JAR TP (08:19)
[2024-12-27] MEDS: Multivitamin w/Minerals TAB 1 TAB PO (08:19)
[2024-12-27] MEDS: Losartan 25 MG TAB 50 MG PO (08:19)
--- NOTE | 2024-12-27 08:26 | PDOC.CMDIS ---
Date of service: 12/27/24 Time of Service: 08:26 LACE Index Scoring Tool Questions: Length of Stay (in days): 4 - 6 Was the patient admitted via the E.D.?: Yes Comorbidities: Metastatic Solid Tumor (HX of breast cancer) E.D. Visits: 2 Answers: Total Score: 14 Risk of Readmission: High Risk Care Management Discharge Plan Reason for Hospitalization: Acute dehydration, diarrhea Discharge Plan: Evelia was discharged to [facility] for STR. She was transported via [facility]. Patient will follow up with community/VA providers and continue per her discharge plan of care. Patient/Family Education Needs: Review discharge instructions and plan to follow up after discharge. Discuss ask me three. Services Needed at Discharge: Penitentiary Facility ([facility]- coordinated by [facility]) and Transportation ([facility] coordinated by [facility])
[2024-12-27 11:30] VITALS: BP 128/63; PULSE 76; RESP 17; TEMP 36.8; O2SAT 95
--- NOTE | 2024-12-27 11:50 | PT.INTREAT ---
PT Notes Visit Reasons: Acute Dehydration with Diarrhea Date: 12/27/2024 PRECAUTIONS: Fall, standard, Activity as tolerated. SUBJECTIVE: Pt in recliner when approached for therapy this morning, agreed to participating with therapy session. OBJECTIVE: ? PAIN: buttock area VITALS: Closely monitored by nursing Therapeutic Activities 39442: Direct one-on-one instruction in dynamic activities to improve functional performance. ?? BED MOBILITY/TRANSFERS? Rolling L/R: supervision Supine-sit: ?SBA ? Sit-supine: SBA ? Sit-stand: ? SBA? Stand-sit: ??SBA ? Bed-Chair:? SBA? Chair-bed: SBA Provided skilled cues and instruction on performance and technique throughout. Gait Training 44681: Direct one-on-one instruction and skilled instruction in: Employing an assistive device Modified weight-bearing status Movement sequencing Turning and movement with proper form Provided verbal cues for equipment management and technique Provided instruction in gait pattern Patient education regarding pacing and breathing techniques to maximize activity tolerance? GAIT? Assistive Device: ?? ?FWW ? Weight bearing: FWB Assist: ? SBA ? Distance:?? 150'x2 seated rest break in between ? Deviation: ?stoop forward posture low step height, short step length ? Therapeutic Exercises 93255: Direct one-on-one instruction in therapeutic exercises to develop strength, endurance, range of motion and flexibility. Exercises Sit to stand 55y8kud Seated LAQ 61e9iqt Seated SAQ 23t3qig Standing NBOS without UE support 1min Standing high march 42x8nhw Standing hip [address] 51l0jqs Standing hip circles CW/CCW 57n1pqk Standing partial squats 10o5gdk Standing heel raises 42l1xpt Standing toe raises 07h8ace ? Provided skilled instruction in proper exercise performance Provided skilled manual cues to facilitate proper muscle recruitment and/or form: ASSESSMENT: Pt tolerated activity well, reports feeling stronger and was able to complete activity faster and with less fatigue. PLAN: Continue with balance training, global strengthening and general conditioning for improved safety, mobility and activity tolerance until pt is ready for DC. TREATMENT CODE/TIME: 43086w4, 95381u2 30mins (10:30-11:00am)
--- NOTE | 2024-12-27 12:21 | W.PM.DS.N ---
Date of service: 12/27/24 Time of Service: 12:21 DS: Diagnosis Discharge Diagnosis (1) Acute dehydration: Status: Acute (2) Diarrhea in adult patient: Status: Acute (3) Hypomagnesemia: Status: Chronic (4) Essential hypertension: (5) Diabetes mellitus, type 2: (6) Hypothyroidism: (7) Obstructive sleep apnea: (8) Pressure ulcer: Status: Acute (9) Palliative care patient: Status: Acute (10) Weakness: Status: Acute Discharge Plan Disposition Patient Disposition: Home Condition: Improving Discharge Details Reason For Visit: Acute Dehydration with Diarrhea Admit Date/Time: 12/21/24 22:36 Admit Provider: Akash Adamson Attending Provider: Akash Adamson Primary Care Provider: Grazyna Wilkes Hospital Course Hospital Course: 74-year-old female who presents emergency department acute dehydration secondary to prolonged antibiotics for pneumonia. She is C. difficile negative and stool cultures were also negative. Patient rapidly returned to her baseline tolerating all p.o. intake without difficulty. Ultimately, it was determined that she was stable for discharge to short-term rehab. Home Meds and New Rx's Prescriptions: Continued metformin [Glucophage] 500 MG tablet 500 mg PO BID simvastatin 40 MG tablet 40 mg PO DAILY levothyroxine [Synthroid] 100 MCG tablet 100 mcg PO DAILY losartan [Cozaar] 25 MG tablet 50 mg PO DAILY CALCIUM 1 tab PO BID COMBIVENT INHALER 1 - 2 puff Inhalation DAILY PRN PRN MULTIVITAMIN 1 tab PO QAM acetaminophen 325 mg capsule 325 mg PO ONCE PRN triamcinolone acetonide 0.025 % cream 0.1 applic TP BID carboxymethylcellulose sodium [Refresh Celluvisc] 1 EACH dropperette,gel 1 drp OU PRN PRN Asmanex Twisthaler 220 mcg (120 doses) Aerosol Powdr Breath Activated 1 inh INHALATION BID Discontinued hydrochlorothiazide 50 mg tablet 25 mg PO DAILY Discharge Instructions Activity:: Activity as Tolerated Equipment/Supplies:: No Equipment Needed Diet:: As Tolerated Discharge Orders Discharge Orders: Discharge Order (Routine); Ordered 12/27/24 Ordered By: Giovanni Alcantara DS: Summary Time Spent with Patient providing and/or coordinating discharge services: Greater than 30 minutes Status at Discharge Functional status at discharge: independent ambulation Overall status at discharge: patient is back to baseline Mental Status: mental status grossly normal Speech and Movement: speech and movement normal Mood: congruent mood Affect: normal affect Exam Narrative Exam Narrative: Well-appearing older female sitting up in the chair no acute distress, ANO x 4, heart regular rhythm, lungs good auscultation bilaterally, abdomen soft, nontender, nondistended Psych Mental Status: mental status grossly normal Speech and Movement: speech and movement normal Mood: congruent mood Affect: normal affect DS: Data Vitals/I&O Vitals and I&O: Vital Signs Temperature 98.2 F 12/27/24 11:30 Temperature Source Temporal Artery Scan 12/27/24 11:30 Pulse 76 12/27/24 11:30 Pulse Rhythm Regular 12/21/24 22:05 Pulse Strength Normal 12/21/24 22:05 Pulse 110 H 12/21/24 20:01 Respiratory Rate 17 12/27/24 11:30 Respiratory Effort Normal 12/21/24 23:23 Respiratory Depth Normal 12/21/24 23:23 Respiratory Pattern Normal 12/21/24 23:23 Blood Pressure 128/63 12/27/24 11:30 Blood Pressure Mean 84 12/27/24 11:30 Blood Pressure Position Sitting 12/21/24 17:06 Pulse Oximetry 95 12/27/24 11:30 Oxygen Delivery Method Room Air 12/27/24 11:30 Oxygen Flow Rate 0 12/27/24 11:30 Fraction of Inspired Oxygen (FIO2) 21 12/22/24 00:05 Pain Level 0 12/27/24 11:30 Comment PT refused vitals. Stated it hurt her arm to much. 12/24/24 03:50 Intake & Output 12/26/24 12/27/24 12/27/24 17:59 05:59 17:59 Intake Total 700 / 700 450 / 450 Output Total 200 / 200 150 / 350 Balance 500 / 500 -150 / 350 450 / 450 Intake: Oral 700 / 700 450 / 450 Output: Urine 200 / 200 150 / 350 Other: Urine Color Yellow Yellow Yellow Urine Appearance Clear Clear Clear Urine Odor Normal Normal Normal Comment pt voids to the commode. very little output Stool Size Small Moderate Stool Characteristics Soft Soft Brown PFSH All Active Problems Weakness (Acute) Pressure ulcer (Acute) Advanced care planning/counseling discussion (Acute) Palliative care patient (Acute) Hypomagnesemia (Chronic) Diarrhea in adult patient (Acute) Acute dehydration (Acute) Head injury (Acute) Shoulder pain (Acute) Leg pain (Acute) Abrasion (Acute) Epistaxis (Acute) H/O colonoscopy (Chronic ~10/2019) incomplete colonoscopy. repeat in 1 year or schedule barium enema. Medical History Normal colonoscopy (~10/2020) 2020- done at the [place]. Negative exam. Repeat in 7-10 years. Personal history of malignant neoplasm of breast Other asthma Obstructive sleep apnea Morbid obesity due to excess calories Lichen sclerosus et atrophicus Hypothyroidism Adenomatous polyp (~06/2015) Asthma Cataract Gastroesophageal reflux disease Plantar fasciitis Incontinence mixed Hyperlipidemia Malignant neoplasm of female breast Diabetes mellitus, type 2 Essential hypertension Surgical History S/P colonoscopy 2015- Tubular adenoma portacath insertion and removal for chemo Breast, Lumpectomy R breast quadrectomy Family History Sister Personal history of malignant neoplasm breast CA-in-situ Alzheimer's disease Father No problems noted. Mother Alzheimer's disease Other Cirrhosis of liver Social History Smoking/Tobacco Use Status: Former Tobacco Use Smoking risk assessment performed?: Yes Alcohol Intake: current Alcohol Intake frequency: holidays/special occasions only Alcohol type: beer Drug use: Never Substance use type: does not use Housing: house Do you feel safe at home: Yes Do you feel safe in your relationship?: Yes Time Spent with Patient Time Spent with Patient: <45 minutes Time was spent: preparing to see the patient(eg.review tests), obtaining and/or reviewing separately otained hiistory, ordering medications,tests, procedures, referring, communicating with other health healthcare administrator, indepentently interpreting results, counseling the patient and care coordination
== END 2024-12-27 13:20 | disposition home or self-care (01) | DRG 641 ==
LOC: ER 22:11 → MS 23:11
PROVIDERS: Family Medicine; Admitting Provider Family Medicine; Emergency Provider Emergency Medicine; PCP Student in an Organized Health Care Education/Training Program; Responsible Provider Family Medicine; Visit Provider Family Medicine
DX: E86.0 Dehydration (principal); K52.1 Toxic gastroenteritis and colitis; T36.8X5A Adverse effect of other systemic antibiotics, initial encounter; I10 Essential (primary) hypertension; E83.42 Hypomagnesemia; E11.9 Type 2 diabetes mellitus without complications; E03.9 Hypothyroidism, unspecified; G47.33 Obstructive sleep apnea (adult) (pediatric); R53.1 Weakness; J45.909 Unspecified asthma, uncomplicated; L90.0 Lichen sclerosus et atrophicus; E66.01 Morbid (severe) obesity due to excess calories; K21.9 Gastro-esophageal reflux disease without esophagitis; N39.46 Mixed incontinence; Z85.3 Personal history of malignant neoplasm of breast; E78.5 Hyperlipidemia, unspecified; Z87.891 Personal history of nicotine dependence; Z79.84 Long term (current) use of oral hypoglycemic drugs; R00.0 Tachycardia, unspecified; L89.159 Pressure ulcer of sacral region, unspecified stage; Z68.33 Body mass index [BMI] 33.0-33.9, adult
CPT/HCPCS: 00123; 36415; 80048; 80053; 83690; 85027; 87505; 87637; 93005; 94640; 96365; 96375; 97110; 97162; 97163; 97530; 97542; 99285; J1650; 74177; 81003; 83036; 83605; 83735; 84439; 84443; 85025; 93010; 94660; 94664; 94667; 94760; 99223; 99232; 99233; 99238; J1815; J2405; J3475; J3490

== ENCOUNTER 2025-02-28 08:36 | Emergency (ER) | payer OTHER, SELFPAY ==
[2025-02-28] VITALS (12 sets, daily range): BP systolic 130–174; BP diastolic 50–98; PULSE 78–101; RESP 18; TEMP 36.8; O2SAT 94–97
--- NOTE | 2025-02-28 08:55 | DI.CT_ITS ---
Exam(s) CT ABDOMEN PELVIS WO EXAM: CT ABDOMEN PELVIS WO CLINICAL HISTORY: left sided abdominal pain. TECHNIQUE: Imaging Protocol: Axial computed tomography images with coronal and sagittal reformatted images were created and reviewed CONTRAST MATERIAL: Intravenous: none Oral: None COMPARISON: CT CT ABDOMEN PELVIS W from 12/21/2024 FINDINGS: VISUALIZED LUNG BASES: There is mild infiltrate in the lateral basal segment of the left lower lobe. There are no pleural effusions.. ABDOMEN: There is no ascites. LIVER: There are no obvious focal hepatic lesions evident of this noninfused study. GALLBLADDER/BILIARY: There are tiny gallstones layered on the dependent wall the gallbladder. Gallbladder is not distended nor edematous. There are no calculi seen in the nondilated CBD. PANCREAS: No evidence of pancreatic mass nor dilatation of the pancreatic duct. SPLEEN: Spleen is not enlarged. No obvious intrasplenic lesions. ADRENALS: There are no significant adrenal masses. KIDNEYS:There are no radiopaque calculi seen left kidney but there is a E tiny 1-2 mm calculus in the distal most left ureter at the ureterovesical junction. The ureter above this level is not dilated and there is no ipsilateral hydronephrosis. Right kidney and ureter unremarkable.. ABDOMINAL AORTA: Abdominal aorta is not enlarged. LYMPH NODES: There is no retroperitoneal nor paraaortic adenopathy. ABDOMINAL WALL: No evidence of significant anterior abdominal wall nor inguinal hernia. GI: There is no evidence of bowel obstruction, free air, nor abscess. PELVIS: LYMPH NODES: There is no intrapelvic nor inguinal adenopathy. GI: No evidence of appendicitis.There is interposition of the hepatic flexure of the right side of the colon between the right hepatic lobe and the right hemidiaphragm, similar to previous.The transverse colon is collapsed as is the descending-left colon and sigmoid. There are sigmoid diverticuli but no evidence of acute diverticulitis. URINARY BLADDER: Tiny calculus at the left UVJ as described above. REPRODUCTIVE: Uterus and adnexal regions are age-appropriate. There is no free fluid in the pelvis. 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 No fractures. No significant osseous lesions. There is a benign intraosseous hemangioma in the L4 vertebral body noted. IMPRESSION: 1. Main finding here is a tiny 1-2 mm calculus in the lower left ureter at the ureterovesical junction. There is minimal if any significant dilatation of the ipsilateral collecting system. There are no remaining radiopaque calculi in the left kidney. 2. Cholelithiasis without evidence of acute cholecystitis nor dilatation of the biliary tree. 3. Sigmoid diverticulosis without evidence of acute diverticulitis. There is also no evidence of acute appendicitis. 4. Small area of infiltrate incidentally noted in the left lung base, specifically in the lateral basal segment of the left lower lobe. There is no pleural effusion. Report called by myself to ER physician 02/28/2025 at 10 a.m. RADIATION DOSE DELIVERED: 763.03mGy.cm Total DLP DATA REPOSITORY: All CT scans at this facility are submitted to the National Radiology Data Registry (NRDR) Dose Index Registry (DIR) with the [employer] (A[employer]). RADIATION OPTIMIZATION: All CT scans at this facility use at least one of these dose optimization techniques: automated exposure control; mA and/or kV adjustment per patient size (includes targeted exams where dose is matched to clinical indication); or iterative reconstruction.
--- NOTE | 2025-02-28 09:14 | W.ED.GENAD ---
Discharge Plan Disposition Patient Disposition: Home Condition: Good Discharge Details Clinical Impression: Kidney stone Primary Care Provider: Unknown,Unknown ED Provider: Yony Riley Home Meds and New Rx's Prescriptions: New tamsulosin 0.4 mg capsule 0.4 mg PO DAILY Qty: 7 0RF No Action metformin [Glucophage] 500 MG tablet 500 mg PO BID simvastatin 40 MG tablet 40 mg PO DAILY levothyroxine [Synthroid] 100 MCG tablet 100 mcg PO DAILY losartan [Cozaar] 25 MG tablet 50 mg PO DAILY COMBIVENT INHALER 1 - 2 puff Inhalation DAILY PRN PRN MULTIVITAMIN 1 tab PO QAM acetaminophen 325 mg capsule 325 mg PO ONCE PRN triamcinolone acetonide 0.025 % cream 0.1 applic TP BID carboxymethylcellulose sodium [Refresh Celluvisc] 1 EACH dropperette,gel 1 drp OU PRN PRN Asmanex Twisthaler 220 mcg (120 doses) Aerosol Powdr Breath Activated 1 inh INHALATION BID Discharge Instructions Instructions: Kidney Stone, Adult ED Additional Instructions: At this time you have evidence of a small kidney stone. This is likely the cause of your symptoms. This should pass within the next 12 to 48 hours, if not earlier. Please drink plenty of fluids, 10 to 12 cups/day at least. Please add a small amount of lemon juice to every cup of water. Please take 1000 mg of Tylenol every 6 hours as needed for pain. These are the maximum doses of these medicines. Please take the Flomax as directed. This will help in expediting the passage of your kidney stone. If your pain stops, you can stop taking the Flomax. Please strain your urine to collect the stone. This can then be analyzed by your family doctor. If you do not have resolution of your symptoms after 48 to 72 hours please follow-up closely with your family doctor or return here for reassessment. If you notice any worsening of your symptoms, or any new symptoms such as inability to urinate, vomiting, diarrhea, fever, chills, shortness of breath, chest pain, numbness, weakness, or fainting , please return immediately to the emergency department for reevaluation. Please follow up with your primary care provider as soon as possible for reassessment and reevaluation. As always, it was a pleasure participating in your medical care today. Stand Alone Forms: Portal Information Discharge Data Discharge Date/Time-TO BE ENTERED AT DEPARTURE: 02/28/25 12:39 HPI General Date/Time Provider Initiated Documentation: 02/28/25 08:42. HPI Narrative: This is a very pleasant 75-year-old female with a past medical history of diabetes mellitus, breast cancer,, asthma, GERD, hypertension, who presents today for evaluation of left lower quadrant abdominal pain. Pain began last night, it is sharp, achy in nature. Initially it was coming and going in severity and frequency, however over the last 3 hours its been constant. She does admit to very mild dysuria, she did have a normal bowel movement just a few moments ago without any blood pain or resolution of her symptoms. She has nausea without vomiting. She denies any previous abdominal surgeries. She denies any other complaints. Of note she was recently admitted within the past month or so for diarrhea, which certainly is not the case today. She was C. difficile never active at that time. No other complaints at this time. No fever or chills. Related Data Home Medications ?Medication ?Instructions ?Recorded ?Confirmed Combivent Inhaler 1 - 2 puff inhalation DAILY PRN PRN 06/06/12 02/28/25 Multivitamin 1 tab PO QAM 06/06/12 02/28/25 levothyroxine 100 mcg tablet 100 mcg PO DAILY 06/06/12 02/28/25 (Synthroid) losartan 25 mg tablet (Cozaar) 50 mg PO DAILY 06/06/12 02/28/25 metformin 500 mg tablet 500 mg PO BID 06/06/12 02/28/25 (Glucophage) simvastatin 40 mg tablet 40 mg PO DAILY 06/06/12 02/28/25 carboxymethylcellulose sodium 1 % 1 drp OU PRN PRN 09/09/14 02/28/25 eye gel in a dropperette (Refresh Celluvisc) mometasone 220 mcg/actuation(120 1 inh inhalation BID 09/11/18 02/28/25 doses)breath activated powder inhaler (Asmanex Twisthaler) acetaminophen 325 mg capsule 325 mg PO ONCE PRN 08/24/19 02/28/25 triamcinolone acetonide 0.025 % 0.1 applic topical BID 08/24/19 02/28/25 topical cream tamsulosin 0.4 mg capsule 0.4 mg PO DAILY #7 caps 02/28/25 Previous Rx's ?Medication ?Instructions ?Recorded tamsulosin 0.4 mg capsule 0.4 mg PO DAILY #7 caps 02/28/25 Allergies Allergy/AdvReac Type Severity Reaction Status Date / Time JAMARCUS Inhibitors Allergy Unknown noted on Verified 02/28/25 08:56 referral note, no reaction given sulfamethoxazole Allergy Unknown Nausea Verified 02/28/25 08:56 trimethoprim (From ) Allergy Unknown on Verified 02/28/25 08:56 referral, no reaction noted lisinopril Allergy RASH Unverified 02/28/25 08:56 Penicillins Allergy RASH Unverified 02/28/25 08:56 General Stated Complaint: Abd Prob ANDREW: 3 Exam Narrative Exam Narrative: 1.Const: Well-nourished, Well-developed, appearing stated age 2.Eyes: PERRL, no conjunctival injection, and symmetrical lids. 3.ENT: Atraumatic external nose and ears. Moist MM. Neck: Symmetric, trachea midline, No thyromegaly. 4.CVS: +S1/S2, Peripheral pulses 2+ and equal in all extremities. Brisk capillary refill in all extremities. 5.RESP: Unlabored respiratory effort. Clear to auscultation bilaterally. No wheezes rales or rhonchi 6.GI: Soft, nondistended. No guarding or rebound. Mild to moderate tenderness in the left lower quadrant and left upper quadrant. Minimal tenderness in the right lower and right upper. Mild suprapubic tenderness. 7.MSK: Normocephalic/Atraumatic, Extremities w/o deformity or ttp No cyanosis or clubbing, Normal movement of all extremities 8.Skin: Warm, Dry. No rashes or lesions. 9.Neuro: sewer II-XII grossly intact. Sensation grossly intact, no focal neurologic deficits. 10.Psych: (AAO) x3. Appropriate mood and affect Course Vital Signs Vital signs: Vital Signs Temperature 36.8 C 02/28/25 08:26 Pulse 91 H 02/28/25 08:26 Respiratory Rate 18 02/28/25 08:26 Blood Pressure 174/66 H 02/28/25 08:26 Pulse Oximetry 94 02/28/25 08:26 Temperature 36.8 C 02/28/25 09:05 Temperature Source Temporal Artery Scan 02/28/25 09:05 Pulse 101 H 02/28/25 09:05 Respiratory Rate 18 02/28/25 09:05 Blood Pressure 159/67 H 02/28/25 09:05 Blood Pressure Mean 103 02/28/25 09:01 Blood Pressure Position Supine 02/28/25 08:26 Pulse Oximetry 94 02/28/25 09:05 Oxygen Delivery Method Room Air 02/28/25 09:05 Oxygen Flow Rate 0 02/28/25 08:26 Pain Level 0 02/28/25 09:05 Lab/Test Results Lab/Test Results: 02/28/25 09:00 Urine - Clean Catch Urine Culture - Pending Medical Decision Making This is a very pleasant 75-year-old female with a past medical history of diabetes mellitus, breast cancer,, asthma, GERD, hypertension, who presents today for evaluation of left lower quadrant abdominal pain. Pain began last night, it is sharp, achy in nature. Initially it was coming and going in severity and frequency, however over the last 3 hours its been constant. She does admit to very mild dysuria, she did have a normal bowel movement just a few moments ago without any blood pain or resolution of her symptoms. She has nausea without vomiting. She denies any previous abdominal surgeries. She denies any other complaints. Of note she was recently admitted within the past month or so for diarrhea, which certainly is not the case today. She was C. difficile never active at that time. No other complaints at this time. No fever or chills. Exam demonstrates notable tenderness in the left lower and left upper quadrant, minimal on the right side. Differential includes diverticulitis, less likely urolithiasis or pyelonephritis. Obstruction on the differential but less likely. Metastatic lesions certainly of concern as well. Will get CT imaging, treat her pain, gently rehydrate, monitor closely and reassess. 1:30 AM p.m. Laboratory workup has returned, no white count or bandemia or left shift. Repeat lactate is normal. Electrolytes normal. Renal function good. CT scan shows evidence of a tiny 1 to 2 mm calculus in the left ureter which is the location of the patient's pain. It appears to be at the ureterovesicular junction. After Tylenol she had near complete resolution of her symptoms. She was given Flomax. She is clinically doing well with no signs of obstruction. No evidence of diverticulitis or other abnormality. Repeat abdominal exam shows no signs of any acute surgical abdomen or significant tenderness. Urinalysis shows RBCs, but normal WBCs, negative nitrites, and only trace leuk esterase. Symptoms are inconsistent with UTI or Jose. Suspect that the patient may have passed a stone at this time with her complete resolution of her symptomatology and the location of the stone at the ureteral vesicular junction. With the patient's improvement of her symptoms she will be discharged home with a prescription for Flomax, continued NSAIDs, water hydration lemon juice. Discussed red flags which to return. Of note the patient does have a small effusion noted on the CT scan, however she has no cough or shortness of breath to suggest pneumonia. I have extensively reviewed the treatment plan and discharge instructions with the patient. I have addressed all patient concerns at this time. The patient was made aware of what symptoms to monitor for that would warrant a return to the emergency department. Discussed the plan with the patient, they demonstrate verbal understanding and agreement with our assessment and plan at this time. The documentation in this chart was dictated using [employer] dictation software. Please excuse any dictation errors. FINDINGS: VISUALIZED LUNG BASES: There is mild infiltrate in the lateral basal segment of the left lower lobe. There are no pleural effusions.. ABDOMEN: There is no ascites. LIVER: There are no obvious focal hepatic lesions evident of this noninfused study. GALLBLADDER/BILIARY: There are tiny gallstones layered on the dependent wall the gallbladder. Gallbladder is not distended nor edematous. There are no calculi seen in the nondilated CBD. PANCREAS: No evidence of pancreatic mass nor dilatation of the pancreatic duct. SPLEEN: Spleen is not enlarged. No obvious intrasplenic lesions. ADRENALS: There are no significant adrenal masses. KIDNEYS:There are no radiopaque calculi seen left kidney but there is a E tiny 1-2 mm calculus in the distal most left ureter at the ureterovesical junction. The ureter above this level is not dilated and there is no ipsilateral hydronephrosis. Right kidney and ureter unremarkable.. ABDOMINAL AORTA: Abdominal aorta is not enlarged. LYMPH NODES: There is no retroperitoneal nor paraaortic adenopathy. ABDOMINAL WALL: No evidence of significant anterior abdominal wall nor inguinal hernia. GI: There is no evidence of bowel obstruction, free air, nor abscess. PELVIS: LYMPH NODES: There is no intrapelvic nor inguinal adenopathy. GI: No evidence of appendicitis.There is interposition of the hepatic flexure of the right side of the colon between the right hepatic lobe and the right hemidiaphragm, similar to previous.The transverse colon is collapsed as is the descending-left colon and sigmoid. There are sigmoid diverticuli but no evidence of acute diverticulitis. URINARY BLADDER: Tiny calculus at the left UVJ as described above. REPRODUCTIVE: Uterus and adnexal regions are age-appropriate. There is no free fluid in the pelvis. 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 No fractures. No significant osseous lesions. There is a benign intraosseous hemangioma in the L4 vertebral body noted. IMPRESSION: 1. Main finding here is a tiny 1-2 mm calculus in the lower left ureter at the ureterovesical junction. There is minimal if any significant dilatation of the ipsilateral collecting system. There are no remaining radiopaque calculi in the left kidney. 2. Cholelithiasis without evidence of acute cholecystitis nor dilatation of the biliary tree. 3. Sigmoid diverticulosis without evidence of acute diverticulitis. There is also no evidence of acute appendicitis. 4. Small area of infiltrate incidentally noted in the left lung base, specifically in the lateral basal segment of the left lower lobe. There is no pleural effusion. Report called by myself to ER physician 02/28/2025 at 10 a.m. [facility] All Active Problems (Updated 12/28/24 @ 00:04 by DONTRELL KAYE) Kidney stone (Chronic) Weakness (Acute) Pressure ulcer (Acute) Advanced care planning/counseling discussion (Acute) Head injury (Acute) Shoulder pain (Acute) Leg pain (Acute) Abrasion (Acute) Epistaxis (Acute) H/O colonoscopy (Chronic ~10/2019) incomplete colonoscopy. repeat in 1 year or schedule barium enema. Medical History (Updated 02/28/25 @ 12:30 by Yony Riley DO) Palliative care patient Normal colonoscopy (~10/2020) 2020- done at the [place]. Negative exam. Repeat in 7-10 years. Personal history of malignant neoplasm of breast Other asthma Obstructive sleep apnea Morbid obesity due to excess calories Lichen sclerosus et atrophicus Hypothyroidism Adenomatous polyp (~06/2015) Asthma Cataract Gastroesophageal reflux disease Plantar fasciitis Incontinence mixed Hyperlipidemia Malignant neoplasm of female breast Diabetes mellitus, type 2 Essential hypertension Surgical History (Updated 12/28/24 @ 00:04 by DONTRELL KAYE) S/P colonoscopy 2016- Tubular adenoma portacath insertion and removal for chemo Breast, Lumpectomy R breast quadrectomy Family History Sister Personal history of malignant neoplasm breast CA-in-situ Alzheimer's disease Father No problems noted. Mother Alzheimer's disease Other Cirrhosis of liver Social History Smoking/Tobacco Use Status: Former Tobacco Use Smoking risk assessment performed?: Yes Alcohol Intake: current Alcohol Intake frequency: holidays/special occasions only Alcohol type: beer Drug use: Never Substance use type: does not use Housing: house Do you feel safe at home: Yes Do you feel safe in your relationship?: Yes Additional Social history: lives alone
[2025-02-28 09:32] LABS: Abs Immature Grans 0.02 10^3/uL (0.0-0.06); HCT 41.7 % (36.0-46.0); HGB 13.2 g/dL (11.2-15.7); Immature Grans % 0.3 %; MCH 27.0 pg (27.0-33.0); MCHC 31.7 % (32.0-36.0); MCV 85 fL (80-95); MPV 9.5 fL (8.0-11.0); Platelet Count 257 10^3/uL (130-400); RBC 4.89 10^6/uL (3.93-5.22); RDW 13.2 % (11.7-14.6); RDW-SD 41.6 fL; WBC 7.71 10^3/uL (4.4-10.8)
[2025-02-28 09:53] LABS: Lipase 24 U/L (<53)
[2025-02-28 10:00] LABS: ALT 13 U/L (10-49); AST 27 U/L (<34); Albumin 4.7 g/dL (3.2-5.0); Alkaline Phosphatase 57 U/L (46-116); Anion Gap 12.3 mmol/L (3-11); BUN 20 mg/dL (9-23); Bilirubin, Total 0.7 mg/dL (0.2-1.2); CO2 26.7 mmol/L (20.0-31.0); Calcium 9.8 mg/dL (8.3-10.6); Chloride 101 mmol/L (98-107); Glucose 162 mg/dL (74-106); Potassium 3.9 mmol/L (3.5-5.1); Sodium 140 mmol/L (136-145); Total Protein 8.0 g/dL (5.7-8.2)
[2025-02-28] MEDS: Tamsulosin 0.4 MG CAPCR PO (10:18)
[2025-02-28 10:21] LABS: Glucose 100 mg/dL (Negative)
[2025-02-28] MEDS: Normal Saline 500 ML IV (10:33)
[2025-02-28] MEDS: ACETAMINOPHEN 1,000 MG/100 ML BAG 400 MG IVPB (10:33)
== END 2025-02-28 12:39 | disposition home or self-care (01) ==
PROVIDERS: Emergency Provider Student in an Organized Health Care Education/Training Program
DX: N20.0 Calculus of kidney (principal)
CPT/HCPCS: 99283; 99284; 36415; 96374; 80053; 83690; 96361; 74176; 81003; 81015; 83605; 85025; 87086; J0131

== ENCOUNTER 2025-03-02 17:17 | Outpatient (REF) | payer OTHER, SELFPAY ==
[2025-03-02 17:36] LABS: Glucose Negative (Negative)
[2025-03-02 17:42] LABS: WBC 0-2 HPF (0-5)
[2025-03-02 17:43] LABS: C & S Indicated? No
== END 2025-03-02 17:18 | disposition home or self-care (01) ==
LOC: LBN 17:17
PROVIDERS: Visit Provider Internal Medicine
DX: R30.0 Dysuria (principal); N39.3 Stress incontinence (female) (male)
CPT/HCPCS: 81003; 81015